=== PATIENT | male | born 1965 | race Hispanic/Latino ===

== ENCOUNTER 2018-04-03 18:26 | Inpatient (IN) | payer OTHER ==
[2018-04-03] MEDS ORDERED: ASPIRIN PO ONE (18:53)
[2018-04-03] MEDS ORDERED: NITROSTAT SL PRN (19:33)
[2018-04-03 19:38] LABS: Basophils # (Auto) 0.1 K/mm3 (0.0-0.1); Basophils % (Auto) 0.7 % (0.0-1.8); Eosinophils # (Auto) 0.6 K/mm3 (0.0-0.4); Eosinophils % (Auto) 4.8 % (0.0-4.3); Lymphocytes # (Auto) 3.9 K/mm3 (1.2-5.4); Lymphocytes % (Auto) 31.9 % (13.4-35.0); Mean Corpuscular HGB Conc 34 % (32-34); Mean Corpuscular Hemoglobin 30 pg (28-32); Mean Corpuscular Volume 88 fl (84-94); Monocytes # (Auto) 0.8 K/mm3 (0.0-0.8); Monocytes % (Auto) 6.4 % (0.0-7.3); Platelet Count 236 K/mm3 (140-440); Red Blood Count 5.33 M/mm3 (3.65-5.03); Red Cell Distribution Width 13.9 % (13.2-15.2)
[2018-04-03 19:52] LABS: BUN/Creatinine Ratio 20; Blood Urea Nitrogen 14 mg/dL (9-20); Calcium 9.2 mg/dL (8.4-10.2); Hemolysis Index 15
[2018-04-03] MEDS ORDERED: MORPHINE IV ONE (22:17)
[2018-04-03] MEDS ORDERED: ZOFRAN IV ONE (22:18)
--- NOTE | 2018-04-03 22:27 | Emergency Department Report ---
ED Chest Pain HPI - General Chief Complaint: Chest Pain Stated Complaint: SOB CHEST PAIN Time Seen by Provider: 04/03/18 19:25 Source: patient Mode of arrival: Ambulatory Limitations: No Limitations - History of Present Illness Initial Comments: History presents to emergency department with substernal chest pain that started 2 hours prior to his arrival. The patient complained of being nauseated. Patient recently moved from [facility] and had a [place] 4 weeks ago with stent placement. Patient denies radiation of his chest pain and describes it as pressure. -: Sudden Onset: during rest Pain Location: substernal Pain Radiation: none Severity: moderate Severity scale (0 -10): 6 Quality: tightness, pressure Consistency: constant Improves With: nothing Worsens With: nothing re: nausea Treatments Prior to Arrival: none - Related Data Allergies Allergy/AdvReac Type Severity Reaction Status Date / Time No Known Allergies Allergy Unverified 04/03/18 18:53 Heart Score - HEART Score History: Moderately suspicious EKG: Non-specific Age: 45-65 Risk factors: 1-2 risk factors Troponin: 1-3x normal limit HEART Score: 5 ED Review of Systems ROS: Stated complaint: SOB CHEST PAIN Other details as noted in HPI Constitutional: denies: chills, fever Eyes: denies: eye pain, eye discharge, vision change ENT: denies: ear pain, throat pain Respiratory: denies: cough, shortness of breath, wheezing Cardiovascular: chest pain. denies: palpitations Endocrine: no symptoms reported Gastrointestinal: denies: abdominal pain, nausea, diarrhea Genitourinary: denies: urgency, dysuria Musculoskeletal: denies: back pain, joint swelling, arthralgia Skin: denies: rash, lesions Neurological: denies: headache, weakness, paresthesias Psychiatric: denies: anxiety, depression Hematological/Lymphatic: denies: easy bleeding, easy bruising ED Past Medical Hx - Past Medical History Previous Medical History?: Yes Hx CVA: Yes (TIA) Hx Heart Attack/AMI: Yes - Surgical History Past Surgical History?: Yes Additional Surgical History: cardiac pacemaker/defibrilator - Social History Smoking Status: Current Every Day Smoker Substance Use Type: None ED Physical Exam - General Limitations: No Limitations General appearance: alert, in no apparent distress - Head Head exam: Present: atraumatic, normocephalic - Eye Eye exam: Present: normal appearance - ENT ENT exam: Present: mucous membranes moist - Neck Neck exam: Present: normal inspection - Respiratory Respiratory exam: Present: normal lung sounds bilaterally. Absent: respiratory distress, wheezes, rales - Cardiovascular Cardiovascular Exam: Present: regular rate, normal rhythm. Absent: systolic murmur, diastolic murmur, rubs, gallop - GI/Abdominal GI/Abdominal exam: Present: soft, normal bowel sounds. Absent: distended, tenderness - Rectal Rectal exam: Present: deferred - Extremities Exam Extremities exam: Present: normal inspection - Back Exam Back exam: Present: normal inspection - Neurological Exam Neurological exam: Present: alert, oriented X3, CN II-XII intact. Absent: motor sensory deficit - Psychiatric Psychiatric exam: Present: normal affect, normal mood - Skin Skin exam: Present: warm, dry, intact, normal color. Absent: rash ED Course Vital Signs 04/03/18 18:49 Temperature 98.6 F Pulse Rate 83 Respiratory 20 Rate Blood Pressure 176/91 O2 Sat by Pulse 99 Oximetry VANDANA score - Vandana Score Aspirin use within the Past 7 Days: (1) Yes 2 or more Angina events in past 24 hrs: (1) Yes Known CAD with more than 50% Stenosis: (1) Yes Elevated Cardiac Markers: (0) No ST Deviation Greater than 0.5mm: (0) No ED Medical Decision Making - Lab Data Result diagrams: 04/03/18 19:01 04/03/18 19:01 - EKG Data EKG shows normal: sinus rhythm (paced rhythm) - EKG Data When compared to previous EKG there are: previous EKG unavailable - Medical Decision Making Discussed the patient with and EKG sent Patient should be admitted for CP work up Patient had no relief of chest pain with sublingual nitroglycerin 3 Critical care attestation.: If time is entered above; I have spent that time in minutes in the direct care of this critically ill patient, excluding procedure time. ED Disposition Clinical Impression: Chest pain Disposition: OP ADMIT IP TO THIS HOSP Is pt being admited?: Yes Does the pt Need Aspirin: Yes Condition: Fair Instructions: Chest Pain (ED) Referrals: PRIMARY CARE, [Primary Care Provider] - 3-5 Days Time of Disposition: 22:37
[2018-04-03] MEDS ORDERED: ZOFRAN IV PRN (23:17)
[2018-04-03] MEDS ORDERED: SODIUM CHLORIDE FLUSH SYRINGE 10 ML IV PRN (23:17)
[2018-04-03] MEDS ORDERED: TYLENOL PO PRN (23:17)
--- NOTE | 2018-04-03 23:17 | History and Physical Report ---
History of Present Illness Date of examination: 04/03/18 History of present illness: 52 year old man with history of CAD, TIA, CHF comes to the ER for evaluation of chest pain that started yesterday. Chest pain is in the epigastric area, pressure, constant, intensity 5/10, radiating to the left neck and arm , he cannot identify exacerbating or relieving factor. Admits to shortness of breath , denies no nausea vomiting, diaphoresis, palpitations. He had a stress test 4 months ago Review of systems Constitutional: no weight loss, chills Ears, eyes, nose, mouth and throat: no nasal congestion, no nasal discharge, no sinus pressure, no vision change, no red eye. Neck: No neck pain or rigidity. Cardiovascular: no palpitations Respiratory: no cough Gastrointestinal: no abdominal pain, hematochezia Genitourinary : no frequency , no hematuria Musculoskeletal: no joint swelling or muscle ache Integumentary: no rash, no pruritis Neurological: no parathesias, no numbness, no focal weakness Endocrine: no cold or heat intolerance, no polyuria or polydipsia Hematologic/Lymphatic: no easy bruising, no easy bleeding, no gland swelling Allergic/Immunologic: no urticaria, no angioedema. PAST MEDICAL HISTORY: CAD CHF, TIA PAST SURGICAL HISTORY: Pacemaker, Defibrillator SOCIAL HISTORY: No alcohol, no drugs, smoke 1 pack a day FAMILY HISTORY: Hypertension Medications and Allergies Allergies Allergy/AdvReac Type Severity Reaction Status Date / Time No Known Allergies Allergy Unverified 04/03/18 18:53 Home Medications Medication Instructions Recorded Confirmed Last Taken Type Aspirin EC [Ecotrin] 325 mg PO QDAY 04/03/18 04/03/18 Unknown History Atorvastatin [Lipitor Tab] 40 mg PO QHS 04/03/18 04/03/18 Unknown History Carvedilol [Coreg] 12.5 mg PO BID 04/03/18 04/03/18 Unknown History Furosemide [Lasix] 20 mg PO QDAY 04/03/18 04/03/18 Unknown History ISOSORBIDE MONOnitrate [Imdur ER] 60 mg PO QDAY 04/03/18 04/03/18 Unknown History Insulin Aspart [NovoLOG Flexpen] 20 units SQ AC 04/03/18 04/03/18 Unknown History Insulin Detemir [Levemir Flextouch] 35 unit SQ BID 04/03/18 04/03/18 Unknown History Lisinopril [Zestril TAB] 10 mg PO QDAY 04/03/18 04/03/18 Unknown History Rivaroxaban [Xarelto] 20 mg PO QDAY 04/03/18 04/03/18 Unknown History traZODone [Desyrel] 100 mg PO QHS 04/03/18 04/03/18 Unknown History Active Meds: Active Medications Nitroglycerin (Nitrostat) 0.4 mg SL .Q5MIN PRN PRN Reason: Chest Pain Last Admin: 04/03/18 21:11 Dose: 0.4 mg Exam - Physical Exam Narrative exam: Gen. appearance: Patient lying in bed, no apparent distress HEENT: Normocephalic, atraumatic, pupils equally round and reactive to light, eyes are , extraocular movement intact, and no sclericterus,. No JVD or thyromegaly or nodule,neck supple, no carotid bruit ,mucous membranes dry, no exudate or erythema Heart: S1, S2, regular rate and rhythm Lungs: Clear bilaterally, breathing comfortable Abdomen: Positive bowel sounds, nontender, nondistended, no organomegaly Extremity:no edema cyanosis, clubbing Skin: red blotches on posterior arm with entry erick, no rash, dry Neuro: Oriented 3, cranial nerves II-12 intact, speech is fluent, motor and sensory intact - Constitutional Vitals: Temp Pulse Resp BP Pulse Ox 98.6 F 70 22 124/70 98 04/03/18 18:49 04/03/18 22:50 04/03/18 22:50 04/03/18 22:50 04/03/18 21:53 Results - Labs CBC & Chem 7: 04/03/18 19:01 04/03/18 19:01 Labs: Abnormal lab results 04/03/18 04/03/18 Range/Units 19:01 19:01 WBC 12.1 H (4.5-11.0) K/mm3 RBC 5.33 H (3.65-5.03) M/mm3 Hgb 16.0 H (11.8-15.2) gm/dl Hct 47.0 H (35.5-45.6) % Eos % (Auto) 4.8 H (0.0-4.3) % Eos # 0.6 H (0.0-0.4) K/mm3 Sodium 134 L (137-145) mmol/L Creatinine 0.7 L (0.8-1.5) mg/dL Glucose 298 H (75-100) mg/dL - Imaging and Cardiology EKG: image reviewed Assessment and Plan Assessment Unstable [place] CAD CHF, stable Plan Admit to medicine Check cardiac enzymes, consult cardiology Continue outpatient meducations DVT prophalaxis
[2018-04-04] MEDS ORDERED: MORPHINE ONE (00:18)
[2018-04-04] MEDS ORDERED: MORPHINE IV ONE (00:18)
--- NOTE | 2018-04-04 00:24 | XRay Report ---
FINAL REPORT PROCEDURE: Portable AP chest x-ray TECHNIQUE: Chest radiograph portable AP view. CPT 22229 HISTORY: Chest pain COMPARISON: No prior studies are available for comparison. FINDINGS: Dual-chamber pacemaker implanted in the left side of the chest. The heart is magnified due to projection although appears to be normal size. Pulmonary vasculature is not distended. No evidence of pulmonary edema or pleural effusion. No infiltrates or masses are seen. No acute bony abnormalities are identified. IMPRESSION: Dual-chamber pacemaker in place. No acute abnormalities are identified..
[2018-04-04 02:24] LABS: Basophils # (Auto) 0.1 K/mm3 (0.0-0.1); Basophils % (Auto) 0.7 % (0.0-1.8); Eosinophils # (Auto) 0.4 K/mm3 (0.0-0.4); Eosinophils % (Auto) 4.1 % (0.0-4.3); Hematocrit 43.8 % (35.5-45.6); Hemoglobin 14.9 gm/dl (11.8-15.2); Lymphocytes % (Auto) 39.4 % (13.4-35.0); Mean Corpuscular HGB Conc 34 % (32-34); Mean Corpuscular Hemoglobin 30 pg (28-32); Mean Corpuscular Volume 88 fl (84-94); Monocytes # (Auto) 0.7 K/mm3 (0.0-0.8); Monocytes % (Auto) 7.4 % (0.0-7.3); Platelet Count 200 K/mm3 (140-440); Red Blood Count 4.99 M/mm3 (3.65-5.03); Red Cell Distribution Width 13.6 % (13.2-15.2)
[2018-04-04 02:44] LABS: BUN/Creatinine Ratio 19; Blood Urea Nitrogen 13 mg/dL (9-20); Calcium 8.8 mg/dL (8.4-10.2); Hemolysis Index 0
[2018-04-04 08:20] LABS: Creatine Kinase MB 1.4 ng/mL (0.0-4.0)
[2018-04-04] MEDS: MORPHINE IV PRN ×2 (09:43→14:58)
[2018-04-04] MEDS: SODIUM CHLORIDE FLUSH SYRINGE 10 ML IV SCH ×2 (09:43→22:00)
[2018-04-04] MEDS ORDERED: LOVENOX SUB-Q SCH ×2 (10:00)
--- NOTE | 2018-04-04 11:21 | Progress Note ---
Assessment and Plan Assessment and plan: Chest pain. Patient reportedly had a stress test done approximate 4 months ago. I discussed case with cardiology who will see the patient in consultation. Patient may have repeat stress test versus cardiac catheterization. Coronary artery disease. As above. History of TIA. History Interval history: No new issues overnight. Hospitalist Physical - Constitutional Vitals: Temp Pulse Resp BP Pulse Ox 97.5 F L 71 20 148/71 98 04/04/18 07:34 04/04/18 07:34 04/04/18 07:34 04/04/18 07:34 04/04/18 07:34 General appearance: Present: no acute distress, well-nourished - EENT Eyes: Present: PERRL, EOM intact ENT: hearing intact, clear oral mucosa, dentition normal - Neck Neck: Present: supple, normal ROM - Respiratory Respiratory effort: normal Respiratory: bilateral: CTA - Cardiovascular Rhythm: regular Heart Sounds: Present: S1 & S2. Absent: gallop, rub - Extremities Extremities: no ischemia, No edema, Full ROM - Abdominal General gastrointestinal: soft, non-tender, non-distended, normal bowel sounds - Integumentary Integumentary: Present: clear, warm, dry - Neurologic Neurologic: CNII-XII intact, moves all extremities Results - Labs CBC & Chem 7: 04/04/18 02:06 04/04/18 02:06 Labs: Laboratory Last Values WBC 10.2 K/mm3 (4.5-11.0) 04/04/18 02:06 RBC 4.99 M/mm3 (3.65-5.03) 04/04/18 02:06 Hgb 14.9 gm/dl (11.8-15.2) 04/04/18 02:06 Hct 43.8 % (35.5-45.6) 04/04/18 02:06 MCV 88 fl (84-94) 04/04/18 02:06 MCH 30 pg (28-32) 04/04/18 02:06 MCHC 34 % (32-34) 04/04/18 02:06 RDW 13.6 % (13.2-15.2) 04/04/18 02:06 Plt Count 200 K/mm3 (140-440) 04/04/18 02:06 Lymph % (Auto) 39.4 % (13.4-35.0) H 04/04/18 02:06 [place] % (Auto) 7.4 % (0.0-7.3) H 04/04/18 02:06 Eos % (Auto) 4.1 % (0.0-4.3) 04/04/18 02:06 Baso % (Auto) 0.7 % (0.0-1.8) 04/04/18 02:06 Lymph # 4.0 K/mm3 (1.2-5.4) 04/04/18 02:06 [place] # 0.7 K/mm3 (0.0-0.8) 04/04/18 02:06 Eos # 0.4 K/mm3 (0.0-0.4) 04/04/18 02:06 Baso # 0.1 K/mm3 (0.0-0.1) 04/04/18 02:06 Seg Neutrophils % 48.4 % (40.0-70.0) 04/04/18 02:06 Seg Neutrophils # 4.9 K/mm3 (1.8-7.7) 04/04/18 02:06 Sodium 140 mmol/L (137-145) 04/04/18 02:06 Potassium 4.0 mmol/L (3.6-5.0) 04/04/18 02:06 Chloride 101.7 mmol/L (98-107) 04/04/18 02:06 Carbon Dioxide 27 mmol/L (22-30) 04/04/18 02:06 Anion Gap 15 mmol/L 04/04/18 02:06 BUN 13 mg/dL (9-20) 04/04/18 02:06 Creatinine 0.7 mg/dL (0.8-1.5) L 04/04/18 02:06 Estimated GFR > 60 ml/min 04/04/18 02:06 BUN/Creatinine Ratio 19 % 04/04/18 02:06 Glucose 231 mg/dL (75-100) H 04/04/18 02:06 Calcium 8.8 mg/dL (8.4-10.2) 04/04/18 02:06 Total Creatine Kinase 155 units/L (55-170) 04/04/18 06:58 CK-MB (CK-2) 1.4 ng/mL (0.0-4.0) 04/04/18 06:58 CK-MB (CK-2) Rel Index 0.9 (0-4) 04/04/18 06:58 Troponin T < 0.010 ng/mL (0.00-0.029) 04/04/18 06:58 NT-Pro-B Natriuret Pep 79.35 pg/mL (0-900) 04/03/18 19:39
--- NOTE | 2018-04-04 14:36 | Consultation ---
History of Present Illness Consult date: 04/04/18 Requesting physician: MARIE ALTAMIRANO Consult reason: chest pain History of present illness: The pt is a 52 YO male with a past medical history significant for reported CAD s/p AMI x 4 (no stents per pt report), AICD/PPM in situ, pulmonary embolism, anticoagulated with Xarelto, TIAs, HTN, DM, COPD, tobacco use, ANISHA, former ETOH use. He is previously unknown to our practice. He presented with complaints of chest pain since yesterday. He describes his chest pain as a constant, nonexertional, midsternal pressure which radiates into his neck and upper back. The pain is associated with SOB and palpitations. He denies any n/v, diaphoresis , dizziness or syncope. He reports that his last AMI was 12 weeks ago in [place], [place]. He underwent LHC at that time but was told that his "blockages" were not greater than 80% and thus he did not need PCI. He was found to have "bradycardia and a weak heart" at that time and thus AICD/PPM was implanted. 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 Pt reports that he recently ran out of some of his prescription cardiac medications but does not recall which ones. Past History Past Medical History: COPD, diabetes, hypertension, pulmonary embolism, other ( ANISHA; TIAs) Social history: , lives with family, smoking, alcohol abuse (former). denies: prescription drug abuse Medications and Allergies Allergies Allergy/AdvReac Type Severity Reaction Status Date / Time No Known Allergies Allergy Unverified 04/03/18 18:53 Home Medications Medication Instructions Recorded Confirmed Last Taken Type Aspirin EC [Ecotrin] 325 mg PO QDAY 04/03/18 04/03/18 Unknown History Atorvastatin [Lipitor Tab] 40 mg PO QHS 04/03/18 04/03/18 Unknown History Carvedilol [Coreg] 12.5 mg PO BID 04/03/18 04/03/18 Unknown History Furosemide [Lasix] 20 mg PO QDAY 04/03/18 04/03/18 Unknown History ISOSORBIDE MONOnitrate [Imdur ER] 60 mg PO QDAY 04/03/18 04/03/18 Unknown History Insulin Aspart [NovoLOG Flexpen] 20 units SQ AC 04/03/18 04/03/18 Unknown History Insulin Detemir [Levemir Flextouch] 35 unit SQ BID 04/03/18 04/03/18 Unknown History Lisinopril [Zestril TAB] 10 mg PO QDAY 04/03/18 04/03/18 Unknown History Rivaroxaban [Xarelto] 20 mg PO QDAY 04/03/18 04/03/18 Unknown History traZODone [Desyrel] 100 mg PO QHS 04/03/18 04/03/18 Unknown History Active Meds: Active Medications Acetaminophen (Tylenol) 650 mg PO Q4H PRN PRN Reason: Pain MILD(1-3)/Fever >100.5/GARCIA Enoxaparin Sodium (Lovenox) 40 mg SUB-Q QDAY@1000 [facility] Last Admin: 04/04/18 09:42 Dose: 40 mg Morphine Sulfate (Morphine) 2 mg IV Q4H PRN PRN Reason: Pain, Moderate (4-6) Last Admin: 04/04/18 09:43 Dose: 2 mg Nitroglycerin (Nitrostat) 0.4 mg SL .Q5MIN PRN PRN Reason: Chest Pain Last Admin: 04/03/18 21:11 Dose: 0.4 mg Ondansetron HCl (Zofran) 4 mg IV Q4H PRN PRN Reason: Nausea And Vomiting Sodium Chloride (Sodium Chloride Flush Syringe 10 Ml) 10 ml IV BID [facility] Last Admin: 04/04/18 09:43 Dose: 10 ml Sodium Chloride (Sodium Chloride Flush Syringe 10 Ml) 10 ml IV PRN PRN PRN Reason: LINE FLUSH Review of Systems Constitutional: no weight loss, no weight gain, no fever, no chills, no sweats Ears, nose, mouth and throat: no ear pain, no nose pain, no sinus pressure, no sinus pain Cardiovascular: chest pain, palpitations, shortness of breath, high blood pressure, no orthopnea, no rapid/irregular heart beat, no edema, no syncope, no lightheadedness, no paroxysmal nocturnal dyspnea, no leg edema Respiratory: shortness of breath, no cough, no congestion, no wheezing, no pain on inspiration Gastrointestinal: no abdominal pain, no nausea, no vomiting, no diarrhea, no constipation, no change in bowel habits Genitourinary Male: no dysuria, no hematuria, no flank pain, no discharge, no urinary frequency, no urinary hesitancy Musculoskeletal: no neck stiffness, no neck pain, no shooting arm pain, no arm numbness/tingling, no low back pain, no shooting leg pain, no leg numbness/ tingling, no redness of joints Integumentary: no rash, no pruritis, no redness, no sores, no wounds Neurological: no head injury, no paralysis, no weakness, no parathesias, no numbness, no tingling, no seizures, no syncope Psychiatric: no anxiety Endocrine: no cold intolerance, no heat intolerance Hematologic/Lymphatic: no easy bruising, no easy bleeding, no lymphadenopathy Allergic/Immunologic: no urticaria, no wheezing, no persistent infections Physical Examination Vital Signs Temp Pulse Resp BP Pulse Ox 98.6 F 83 20 176/91 99 04/03/18 18:49 04/03/18 18:49 04/03/18 18:49 04/03/18 18:49 04/03/18 18:49 General appearance: no acute distress HEENT: Positive: PERRL, Normocephaly, Mucus Membranes Moist Neck: Positive: neck supple, trachea midline Cardiac: Positive: Reg Rate and Rhythm, S1/S2 Lungs: Positive: clear to auscultation Neuro: Positive: Grossly Intact, Cranial Nerve 2-12 Intact Abdomen: Positive: Soft. Negative: Tender Skin: Positive: Clear. Negative: Rash, Wound Musculoskeletal: No Fluid Collection, No Pain, Normal Range of Motion Extremities: Absent: edema Results 04/04/18 02:06 04/04/18 02:06 Cardiac Enzymes 04/04/18 Range/Units 06:58 CK-MB (CK-2) 1.4 (0.0-4.0) ng/mL CBC 04/03/18 04/04/18 Range/Units 19:01 02:06 WBC 12.1 H 10.2 (4.5-11.0) K/mm3 RBC 5.33 H 4.99 (3.65-5.03) M/mm3 Hgb 16.0 H 14.9 (11.8-15.2) gm/dl Hct 47.0 H 43.8 (35.5-45.6) % Plt Count 236 200 (140-440) K/mm3 Lymph # 3.9 4.0 (1.2-5.4) K/mm3 [place] # 0.8 0.7 (0.0-0.8) K/mm3 Eos # 0.6 H 0.4 (0.0-0.4) K/mm3 Baso # 0.1 0.1 (0.0-0.1) K/mm3 Comprehensive Metabolic Panel 04/03/18 04/04/18 Range/Units 19:01 02:06 Sodium 134 L 140 (137-145) mmol/L Potassium 3.8 4.0 (3.6-5.0) mmol/L Chloride 100.2 101.7 (98-107) mmol/L Carbon Dioxide 23 27 (22-30) mmol/L BUN 14 13 (9-20) mg/dL Creatinine 0.7 L 0.7 L (0.8-1.5) mg/dL Glucose 298 H 231 H (75-100) mg/dL Calcium 9.2 8.8 (8.4-10.2) mg/dL - Imaging and Cardiology Echo: pending EKG: report reviewed, image reviewed EKG interpretations - Telemetry EKG Rhythm: Paced AV and intraventricular conduction: left bundle branch block Pacemaker: atrial pacing w/capture Assessment and Plan Assessment: Chest pain - ECG with NAF; Yu negative for AMI CAD s/p AMI x 4 (no stents per pt report) - most recent AMI with LHC was 12 weeks ago per pt report ? CMP AICD/PPM in situ H/o pulmonary embolism, anticoagulated with Xarelto at home H/o TIAs HTN DM COPD Tobacco use - cessation encouraged ANISHA Former ETOH use Plan: Resume home medication regimen per primary. Obtain DDimer and plan to proceed with lexiscan MPI stress test in AM pending DDimer is WNL. NPO after MN. Obtain echo. Attempt to obtain medical records from [facility]. The patient has been seen in conjunction with Dr. Rae who agrees with the assessment and plan of care.
[2018-04-04] MEDS: LANTUS SUB-Q SCH (22:00)
[2018-04-04] MEDS ORDERED: INSULIN DETEMIR 35 UNIT SQ SCH (22:00)
[2018-04-04] MEDS: DESYREL PO SCH (22:16)
[2018-04-04] MEDS: COREG PO SCH (22:16)
[2018-04-05] MEDS: HumaLOG SUB-Q SCH ×3 (07:30→17:49)
[2018-04-05] MEDS ORDERED: INSULIN ASPART 20 UNIT SQ SCH (07:30)
[2018-04-05 07:33] LABS: Basophils # (Auto) 0.1 K/mm3 (0.0-0.1); Basophils % (Auto) 0.8 % (0.0-1.8); Eosinophils # (Auto) 0.3 K/mm3 (0.0-0.4); Eosinophils % (Auto) 4.3 % (0.0-4.3); Hematocrit 44.7 % (35.5-45.6); Hemoglobin 15.2 gm/dl (11.8-15.2); Lymphocytes # (Auto) 2.7 K/mm3 (1.2-5.4); Lymphocytes % (Auto) 34.5 % (13.4-35.0); Mean Corpuscular HGB Conc 34 % (32-34); Mean Corpuscular Hemoglobin 30 pg (28-32); Mean Corpuscular Volume 88 fl (84-94); Monocytes # (Auto) 0.5 K/mm3 (0.0-0.8); Monocytes % (Auto) 6.3 % (0.0-7.3); Platelet Count 193 K/mm3 (140-440); Red Blood Count 5.07 M/mm3 (3.65-5.03); Red Cell Distribution Width 13.8 % (13.2-15.2)
[2018-04-05 07:38] LABS: BUN/Creatinine Ratio 14; Blood Urea Nitrogen 10 mg/dL (9-20); Calcium 8.9 mg/dL (8.4-10.2); Hemolysis Index 27
--- NOTE | 2018-04-05 08:47 | Event Note ---
Date: 04/05/18 DDimer minimally elevated, likely nonspecific. Will proceed with lexiscan MPI stress test this AM. Jovani NAVARRO NP / DR. GREENWOOD
[2018-04-05] MEDS ORDERED: LEXISCAN IV ONE (09:42)
--- NOTE | 2018-04-05 09:54 | Progress Note ---
Assessment and Plan Assessment and plan: Chest pain. ECG with no acute findings. Cardiac isoenzymes are negative for acute NH. Patient reports history of coronary artery disease status post acute NH 4 per patient. Patient undergo Lexiscan today. Follow-up echocardiogram. Cardiology following. AICD/PPM in situ H/o pulmonary embolism, anticoagulated with Xarelto at home. H/o TIAs Hypertension. Continue antihypertensive medications. DM type II. Continue Accu-Cheks and sliding scale insulin. Tight glycemic control. COPD. Compensated. Tobacco use - cessation encouraged ANISHA. CPAP at night. Former ETOH use History Interval history: No new issues overnight. Hospitalist Physical - Constitutional Vitals: Temp Pulse Resp BP Pulse Ox 98.3 F 72 20 123/78 94 04/05/18 04:15 04/05/18 04:15 04/05/18 09:29 04/05/18 04:15 04/05/18 09:29 General appearance: Present: no acute distress - EENT Eyes: Present: PERRL, EOM intact ENT: hearing intact, clear oral mucosa, dentition normal - Neck Neck: Present: supple, normal ROM - Respiratory Respiratory effort: normal Respiratory: bilateral: CTA - Cardiovascular Rhythm: regular Heart Sounds: Present: S1 & S2. Absent: gallop, rub - Extremities Extremities: no ischemia, No edema, Full ROM - Abdominal General gastrointestinal: soft, non-tender, non-distended, normal bowel sounds - Integumentary Integumentary: Present: clear, warm, dry - Neurologic Neurologic: CNII-XII intact, moves all extremities Results - Labs CBC & Chem 7: 04/05/18 06:53 04/05/18 06:53 Labs: Laboratory Last Values WBC 7.7 K/mm3 (4.5-11.0) 04/05/18 06:53 RBC 5.07 M/mm3 (3.65-5.03) H 04/05/18 06:53 Hgb 15.2 gm/dl (11.8-15.2) 04/05/18 06:53 Hct 44.7 % (35.5-45.6) 04/05/18 06:53 MCV 88 fl (84-94) 04/05/18 06:53 MCH 30 pg (28-32) 04/05/18 06:53 MCHC 34 % (32-34) 04/05/18 06:53 RDW 13.8 % (13.2-15.2) 04/05/18 06:53 Plt Count 193 K/mm3 (140-440) 04/05/18 06:53 Lymph % (Auto) 34.5 % (13.4-35.0) 04/05/18 06:53 [place] % (Auto) 6.3 % (0.0-7.3) 04/05/18 06:53 Eos % (Auto) 4.3 % (0.0-4.3) 04/05/18 06:53 Baso % (Auto) 0.8 % (0.0-1.8) 04/05/18 06:53 Lymph # 2.7 K/mm3 (1.2-5.4) 04/05/18 06:53 [place] # 0.5 K/mm3 (0.0-0.8) 04/05/18 06:53 Eos # 0.3 K/mm3 (0.0-0.4) 04/05/18 06:53 Baso # 0.1 K/mm3 (0.0-0.1) 04/05/18 06:53 Seg Neutrophils % 54.1 % (40.0-70.0) 04/05/18 06:53 Seg Neutrophils # 4.2 K/mm3 (1.8-7.7) 04/05/18 06:53 D-Dimer 293.88 ng/mlDDU (0-234) H 04/04/18 17:17 Sodium 137 mmol/L (137-145) 04/05/18 06:53 Potassium 4.1 mmol/L (3.6-5.0) 04/05/18 06:53 Chloride 100.0 mmol/L (98-107) 04/05/18 06:53 Carbon Dioxide 28 mmol/L (22-30) 04/05/18 06:53 Anion Gap 13 mmol/L 04/05/18 06:53 BUN 10 mg/dL (9-20) 04/05/18 06:53 Creatinine 0.7 mg/dL (0.8-1.5) L 04/05/18 06:53 Estimated GFR > 60 ml/min 04/05/18 06:53 BUN/Creatinine Ratio 14 % 04/05/18 06:53 Glucose 187 mg/dL (75-100) H 04/05/18 06:53 POC Glucose 106 (70-105) H 04/04/18 23:42 Calcium 8.9 mg/dL (8.4-10.2) 04/05/18 06:53 Total Creatine Kinase 155 units/L (55-170) 04/04/18 06:58 CK-MB (CK-2) 1.4 ng/mL (0.0-4.0) 04/04/18 06:58 CK-MB (CK-2) Rel Index 0.9 (0-4) 04/04/18 06:58 Troponin T < 0.010 ng/mL (0.00-0.029) 04/04/18 06:58 NT-Pro-B Natriuret Pep 79.35 pg/mL (0-900) 04/03/18 19:39
[2018-04-05] MEDS ORDERED: ECOTRIN PO SCH (10:00)
[2018-04-05] MEDS: MORPHINE IV PRN ×2 (12:02→22:13)
[2018-04-05] MEDS: SODIUM CHLORIDE FLUSH SYRINGE 10 ML IV SCH ×2 (12:05→22:07)
[2018-04-05] MEDS: ZESTRIL PO SCH (12:14)
[2018-04-05] MEDS: IMDUR PO SCH (12:15)
[2018-04-05] MEDS: XARELTO PO SCH (12:16)
[2018-04-05] MEDS: COREG PO SCH ×2 (12:16→22:06)
[2018-04-05] MEDS: LASIX PO SCH (12:16)
[2018-04-05] MEDS: LANTUS SUB-Q SCH ×2 (12:17→22:06)
--- NOTE | 2018-04-05 12:47 | Progress Note ---
Assessment and Plan Assessment: Chest pain - currently resolved; ECG with NAF; Yu negative for AMI CAD s/p AMI x 4 (no stents per pt report) - most recent AMI with LHC was 12 weeks ago per pt report CMP AICD/PPM in situ H/o pulmonary embolism, anticoagulated with Xarelto at home H/o TIAs HTN DM COPD Tobacco use - cessation encouraged ANISHA Former ETOH use Plan: S/p lexiscan MPI stress test this AM which was negative for active ischemia, showed fixed apical and inferior wall perfusion defects, EF 35%. Decrease ASA to 81mg daily. Cont all other present cardiac management. Await echo. Pending echo reveals no gross abnormalities, pt may discharge home from cardiology standpoint. Recommend follow up in our office with Jacqueline Acosta NP, within 1-2 weeks of hospital discharge ([phone]). The patient has been seen in conjunction with Dr. Rae who agrees with the assessment and plan of care. Subjective Date of service: 04/05/18 Principal diagnosis: cp Interval history: pt for stress test today. no current complaints. Objective Last Vital Signs Temp 98.3 F 04/05/18 04:15 Pulse 78 04/05/18 12:16 Resp 20 04/05/18 12:02 BP 117/75 04/05/18 12:16 Pulse Ox 99 04/05/18 10:57 - Physical Examination HEENT: Positive: PERRL, Normocephaly, Mucus Membranes Moist Neck: Positive: neck supple, trachea midline Cardiac: Positive: Reg Rate and Rhythm, S1/S2 Lungs: Positive: clear to auscultation Neuro: Positive: Grossly Intact, Cranial Nerve 2-12 Intact Abdomen: Positive: Soft. Negative: Tender Skin: Positive: Clear. Negative: Rash, Wound Musculoskeletal: No Fluid Collection, No Pain, Normal Range of Motion Extremities: Absent: edema - Labs and Meds CBC 04/05/18 Range/Units 06:53 WBC 7.7 (4.5-11.0) K/mm3 RBC 5.07 H (3.65-5.03) M/mm3 Hgb 15.2 (11.8-15.2) gm/dl Hct 44.7 (35.5-45.6) % Plt Count 193 (140-440) K/mm3 Lymph # 2.7 (1.2-5.4) K/mm3 [place] # 0.5 (0.0-0.8) K/mm3 Eos # 0.3 (0.0-0.4) K/mm3 Baso # 0.1 (0.0-0.1) K/mm3 Comprehensive Metabolic Panel 04/05/18 Range/Units 06:53 Sodium 137 (137-145) mmol/L Potassium 4.1 (3.6-5.0) mmol/L Chloride 100.0 (98-107) mmol/L Carbon Dioxide 28 (22-30) mmol/L BUN 10 (9-20) mg/dL Creatinine 0.7 L (0.8-1.5) mg/dL Glucose 187 H (75-100) mg/dL Calcium 8.9 (8.4-10.2) mg/dL - Imaging and Cardiology EKG: report reviewed, image reviewed Echo: pending AV and intraventricular conduction: left bundle branch block Pacemaker: atrial pacing w/capture
--- NOTE | 2018-04-05 20:43 | Treadmill Report ---
MYOCARDIAL PERFUSION IMAGING STUDY Resting images revealed diminished radioisotope activity in the inferior wall and also at the apex. On post-Lexiscan, the images revealed again no diminished radioisotope activity in the inferior wall as well as at the apex. On gated scan, inferior wall was noted to be hypokinetic with ejection fraction of 35%. There is no evidence of transient ischemic dilatation. IMPRESSION: 1. This patient has a fixed small defect in the apex and as well as inferior wall without any reversibility. 2. He has cardiomyopathy, either ischemic or nonischemic. 3. From looking at the scan, he does not need any invasive testing. JOB# [id number] ROSA/KAYLA
[2018-04-05] MEDS: DESYREL PO SCH (22:05)
[2018-04-06 05:15] LABS: Basophils # (Auto) 0.1 K/mm3 (0.0-0.1); Basophils % (Auto) 0.6 % (0.0-1.8); Eosinophils # (Auto) 0.3 K/mm3 (0.0-0.4); Hematocrit 42.7 % (35.5-45.6); Hemoglobin 14.5 gm/dl (11.8-15.2); Lymphocytes % (Auto) 34.6 % (13.4-35.0); Mean Corpuscular HGB Conc 34 % (32-34); Mean Corpuscular Hemoglobin 30 pg (28-32); Mean Corpuscular Volume 87 fl (84-94); Monocytes # (Auto) 0.6 K/mm3 (0.0-0.8); Monocytes % (Auto) 7.2 % (0.0-7.3); Platelet Count 204 K/mm3 (140-440); Red Cell Distribution Width 13.9 % (13.2-15.2)
[2018-04-06] MEDS: HumaLOG SUB-Q SCH ×3 (08:19→17:48)
--- NOTE | 2018-04-06 08:32 | Discharge Summary ---
Providers - Providers Date of Admission: 04/03/18 23:17 Date of discharge: 04/06/18 Attending physician: CALLY NORMAN 04/03/18 23:17 Consult to Physician [CONS] Routine Comment: Consulting Provider: DEMI NANCE Physician Instructions: Reason For Exam: cp Primary care physician: HEAD WELL PULLER Hospitalization Reason for admission: cp Condition: Fair Hospital course: The pt is a 52 YO male with a past medical history significant for reported CAD s/p AMI x 4 (no stents per pt report), AICD/PPM in situ, pulmonary embolism, anticoagulated with Xarelto, TIAs, HTN, DM, COPD, tobacco use, ANISHA, former ETOH use who presented with complaints of chest pain the day prior to admission. He described his chest pain as a constant, nonexertional, midsternal pressure which radiates into his neck and upper back. The pain was associated with SOB and palpitations. He denied any n/v, diaphoresis, dizziness or syncope. He reports that his last AMI was 12 weeks ago in [place], [place]. He underwent LHC at that time but was told that his "blockages" were not greater than 80% and thus he did not need PCI. He was found to have "bradycardia and a weak heart" at that time and thus AICD/PPM was implanted. 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 The patient underwent chest pain workup with ECG revealing no acute findings and cardiac isoenzymes negative for AMI. Patient was seen by cardiology in consultation who recommended Lexiscan that was negative for active ischemia but did show fixed apical and inferior wall perfusion defects, EF 35%. The patient also underwent echocardiogram that is pending and CT of the chest for elevated d -dimer. If the studies are stable patient will be discharged home and is to follow-up with cardiology as an outpatient. Dedicated discharge time 35 minutes. Disposition: TO HOME OR SELFCARE Time spent for discharge: 35 - Discharge Diagnoses (1) HTN (hypertension) Status: Acute (2) CAD (coronary artery disease) Status: Acute (3) COPD (chronic obstructive pulmonary disease) Status: Acute (4) Tobacco abuse Status: Acute (5) Chest pain Status: Acute Core Measure Documentation - Palliative Care Palliative Care/ Comfort Measures: Not Applicable - Core Measures Any of the following diagnoses?: none Exam - Constitutional Vitals: Temp Pulse Resp BP Pulse Ox 97.5 F L 76 18 102/63 95 04/06/18 05:57 04/06/18 05:57 04/06/18 05:57 04/06/18 05:57 04/06/18 05:57 General appearance: Present: no acute distress, well-nourished - EENT Eyes: Present: PERRL ENT: hearing intact, clear oral mucosa - Neck Neck: Present: supple, normal ROM - Respiratory Respiratory effort: normal Respiratory: bilateral: CTA - Cardiovascular Heart Sounds: Present: S1 & S2. Absent: rub, click - Extremities Extremities: pulses symmetrical, No edema Peripheral Pulses: within normal limits - Abdominal General gastrointestinal: Present: soft, non-tender, non-distended, normal bowel sounds Male genitourinary: Present: normal - Integumentary Integumentary: Present: clear, warm, dry - Musculoskeletal Musculoskeletal: gait normal, strength equal bilaterally - Psychiatric Psychiatric: appropriate mood/affect, intact judgment & insight - Neurologic Neurologic: CNII-XII intact, moves all extremities Plan Activity: advance as tolerated Weight Bearing Status: Weight Bear as Tolerated Diet: low fat, low cholesterol, diabetic Follow up with: PRIMARY CARE,MD [Primary Care Provider] - 3-5 Days Prescriptions: Aspirin [Aspirin BABY CHEW TAB] 81 mg PO QDAY #30 tab.chew Atorvastatin [Lipitor] 40 mg PO QHS #30 tablet Carvedilol [Coreg] 12.5 mg PO BID #60 tablet Furosemide [Lasix TAB] 20 mg PO QDAY #30 tablet Insulin Aspart [NovoLOG Flexpen] 20 units SQ AC #30 insuln.pen Insulin Detemir [Levemir Flextouch] 35 unit SQ BID #30 insuln.pen ISOSORBIDE MONOnitrate [Imdur ER] 60 mg PO QDAY #30 tablet Lisinopril [Zestril TAB] 10 mg PO QDAY #30 tablet Nitroglycerin [Nitrostat] 0.4 mg SL .Q5MIN PRN #30 tablet PRN Reason: Chest Pain Rivaroxaban [Xarelto] 20 mg PO QDAY #30 tablet traZODone [Desyrel] 100 mg PO QHS #30 tablet
[2018-04-06 09:06] LABS: BUN/Creatinine Ratio 16; Blood Urea Nitrogen 11 mg/dL (9-20); Hemolysis Index 5
[2018-04-06] MEDS ORDERED: BABY ASPIRIN PO SCH (10:00)
[2018-04-06] MEDS: XARELTO PO SCH (11:15)
[2018-04-06] MEDS: COREG PO SCH (11:15)
[2018-04-06] MEDS: ZESTRIL PO SCH (11:16)
[2018-04-06] MEDS: LASIX PO SCH (11:16)
[2018-04-06] MEDS: LANTUS SUB-Q SCH (11:17)
[2018-04-06] MEDS: IMDUR PO SCH (11:18)
[2018-04-06] MEDS: SODIUM CHLORIDE FLUSH SYRINGE 10 ML IV SCH (11:39)
[2018-04-06] MEDS: MORPHINE IV PRN (11:40)
[2018-04-06 13:19] VITALS: BP 123/69
--- NOTE | 2018-04-06 13:37 | Cat Scan Report ---
CT CHEST WITH CONTRAST: 04/06/18 12:57 CLINICAL: Elevated d-dimer TECHNIQUE: PE protocol with volumetric acquisition and 1.25 mm scan reconstructions after the uneventful intravenous injection of 100 cc Omnipaque 350. Consent was obtained prior to the administration of contrast. FINDINGS: Good opacification of the pulmonary arteries and no pulmonary artery thrombus identified. Normal heart and aorta. Normal lungs and mediastinum. Normal thyroid, trachea and esophagus. The upper abdomen is unremarkable status post cholecystectomy. The bones and soft tissues are normal. IMPRESSION: Normal study. No pulmonary embolus.
== END 2018-04-06 17:46 | disposition home or self-care (01) | DRG 303 ==
LOC: ED 18:26 → 4A 23:17
PROVIDERS: ADMIT Internal Medicine; ATTEND Hospitalist
DX: I25.110 Atherosclerotic heart disease of native coronary artery with unstable angina pectoris (principal); I50.9 Heart failure, unspecified; I11.0 Hypertensive heart disease with heart failure; E11.9 Type 2 diabetes mellitus without complications; J44.9 Chronic obstructive pulmonary disease, unspecified; G47.33 Obstructive sleep apnea (adult) (pediatric); F17.200 Nicotine dependence, unspecified, uncomplicated; I42.9 Cardiomyopathy, unspecified; Z79.82 Long term (current) use of aspirin; Z79.4 Long term (current) use of insulin; I25.2 Old myocardial infarction; Z95.810 Presence of automatic (implantable) cardiac defibrillator; Z86.711 Personal history of pulmonary embolism; Z86.73 Personal history of transient ischemic attack (TIA), and cerebral infarction without residual deficits; Z79.899 Other long term (current) drug therapy
CPT/HCPCS: 36415; 71045; 71275; 78452; 80048; 82550; 82553; 82962; 83880; 84484; 85025; 85379; 93005; 93010; 93017; 93306; 99406; A9270-GY; A9502; J1650; J1815; J2270; J2405; J2785; Q9967

== ENCOUNTER 2018-04-26 20:09 | Emergency (ER) | payer SELFPAY ==
[2018-04-26 20:46] VITALS: BP 158/82
[2018-04-26 20:58] LABS: Basophils # (Auto) 0.1 K/mm3 (0.0-0.1); Eosinophils # (Auto) 0.3 K/mm3 (0.0-0.4); Lymphocytes # (Auto) 3.6 K/mm3 (1.2-5.4); Lymphocytes % (Auto) 34.3 % (13.4-35.0); Mean Corpuscular HGB Conc 36 % (32-34); Mean Corpuscular Hemoglobin 31 pg (28-32); Mean Corpuscular Volume 86 fl (84-94); Monocytes # (Auto) 0.8 K/mm3 (0.0-0.8); Monocytes % (Auto) 7.2 % (0.0-7.3); Platelet Count 231 K/mm3 (140-440); Red Blood Count 5.27 M/mm3 (3.65-5.03); Red Cell Distribution Width 13.8 % (13.2-15.2)
[2018-04-26 21:00] LABS: Hematocrit 45.5 % (35.5-45.6); Hemoglobin 16.2 gm/dl (11.8-15.2)
[2018-04-26 21:27] LABS: Alanine Aminotransferase 34 units/L (7-56); BUN/Creatinine Ratio 18; Blood Urea Nitrogen 14 mg/dL (9-20); Calcium 9.8 mg/dL (8.4-10.2); Hemolysis Index 46
== END 2018-04-26 21:10 | disposition left against medical advice (07) ==
LOC: ED 20:09
DX: M79.602 Pain in left arm (principal); Z53.21 Procedure and treatment not carried out due to patient leaving prior to being seen by health care provider
CPT/HCPCS: 36415; 80053; 85025; 85379

== ENCOUNTER 2018-04-27 10:47 | Emergency (ER) | payer OTHER ==
[2018-04-27] MEDS ORDERED: CLEOCIN 600 MG/50 mL 600 MG/50 ML BAG IV ONE (12:02)
[2018-04-27] MEDS ORDERED: VIBRAMYCIN PO ONE (12:02)
[2018-04-27] MEDS ORDERED: ZOFRAN IV ONE (12:03)
[2018-04-27] MEDS ORDERED: SUBLIMAZE IV ONE (12:03)
[2018-04-27] MEDS ORDERED: HumuLIN R IV ONE (12:54)
--- NOTE | 2018-04-27 12:59 | Emergency Department Report ---
HPI - General Chief Complaint: Extremity Injury, Upper Time Seen by Provider: 04/27/18 11:18 - HPI HPI: Patient is a 52-year-old male who presents for evaluation of left arm pain. The patient reports redness and pain to the left dorsal wrist and forearm for the past 2 days, moderate in severity, pressure-like and stinging in quality, exacerbated with movement of the distal left arm. Patient denies blood trauma or puncture wound to the left forearm or hand, fever, chills, night sweats, chest pain, dyspnea, syncope, hemoptysis, paresthesias or loss of sensation, or loss of motor function in the left upper extremity. ED Past Medical Hx - Past Medical History Hx CVA: Yes (TIA) Hx Heart Attack/AMI: Yes (x 4) Hx Congestive Heart Failure: Yes Hx Diabetes: Yes Hx Liver Disease: Yes Hx Asthma: No Hx COPD: Yes Additional medical history: sleep apnea - Surgical History Hx Pacemaker: (AICD) Additional Surgical History: cardiac pacemaker/defibrilator - Social History Smoking Status: Current Every Day Smoker Substance Use Type: None - Medications Home Medications: Home Medications Medication Instructions Recorded Confirmed Last Taken Type Aspirin EC [Aspirin Enteric Coated 325 mg PO QDAY 04/03/18 04/03/18 Unknown History TAB] Aspirin [Aspirin BABY CHEW TAB] 81 mg PO QDAY #30 tab.chew 04/06/18 Unknown Rx Atorvastatin [Lipitor] 40 mg PO QHS #30 tablet 04/06/18 Unknown Rx Carvedilol [Coreg] 12.5 mg PO BID #60 tablet 04/06/18 Unknown Rx Furosemide [Lasix TAB] 20 mg PO QDAY #30 tablet 04/06/18 Unknown Rx ISOSORBIDE MONOnitrate [Imdur ER] 60 mg PO QDAY #30 tablet 04/06/18 Unknown Rx Insulin Aspart [NovoLOG Flexpen] 20 units SQ AC #30 insuln.pen 04/06/18 Unknown Rx Insulin Detemir [Levemir Flextouch] 35 unit SQ BID #30 insuln.pen 04/06/18 Unknown Rx Lisinopril [Zestril TAB] 10 mg PO QDAY #30 tablet 04/06/18 Unknown Rx Lispro Insulin [Humalog] 20 unit SUB-Q AC units 04/06/18 Unknown Rx Nitroglycerin [Nitrostat] 0.4 mg SL .Q5MIN PRN #30 tablet 04/06/18 Unknown Rx Rivaroxaban [Xarelto] 20 mg PO QDAY #30 tablet 04/06/18 Unknown Rx traZODone [Desyrel] 100 mg PO QHS #30 tablet 04/06/18 Unknown Rx Clindamycin [Clindamycin CAP] 450 mg PO TID 10 Days #45 cap 04/27/18 Unknown Rx Doxycycline Hyclate [Doxycycline 100 mg PO Q12HR #20 tab 04/27/18 Unknown Rx Hyclate TAB] HYDROcodone/APAP 7.5-325 [[place] 1 each PO Q8HR PRN #15 tablet 04/27/18 Unknown Rx 7.5-325 mg TAB] ED Review of Systems ROS: Stated complaint: BRUISED AROUND PACEMAKER/LEFT ARM SWOLLEN AND NUMB Other details as noted in HPI Constitutional: denies: fever ENT: denies: throat or neck pain Respiratory: denies: cough, shortness of breath Cardiovascular: denies: chest pain Endocrine: denies unexplained weight loss or gain Gastrointestinal: denies: abdominal pain, nausea Genitourinary: denies: dysuria Musculoskeletal: reports left arm pain and redness Skin: denies: rash Neurological: denies: headache Hematological/Lymphatic: denies: easy bleeding or easy bruising Psych: denies sadness or hopelessness Physical Exam - Physical Exam Vital Signs: Vital Signs 04/27/18 04/27/18 04/27/18 10:53 10:58 11:00 Temperature 97.6 F Pulse Rate 170 H 73 73 Respiratory 18 16 13 Rate Blood Pressure O2 Sat by Pulse 98 Oximetry 04/27/18 11:15 Temperature Pulse Rate 70 Respiratory 12 Rate Blood Pressure 128/73 O2 Sat by Pulse 97 Oximetry Physical Exam: General: well-nourished, well-developed, no acute distress Head: Normocephalic, atraumatic Eyes: normal sclera ENT: Mucous membranes are pink and moist Neck: trachea midline, neck supple, No neck stiffness, no cervical adenopathy Respiratory: Breath sounds equal bilaterally, no wheezing, rales, or rhonchi Cardio: S1 and S2 present, no murmurs, rubs, gallops, capillary refill is brisk Abdomen: Normoactive bowel sounds, soft abdomen, no rigidity, no guarding or rebound tenderness Musc: redness, swelling, attendance to palpation present to the dorsal aspect of the distal Left forearm, there is no fusiform swelling of the digits, no pain in the hand or forearm elicited with extension of the digits, hand and forearm compartments are soft,, no signs compartment syndrome, sensation, motor function, and proptosis in the distal left arm intact, capillary refill is brisk no signs of flexor tenosynovitis as well, Skin: No rash Neuro: no facial drooping, normal speech Psych: Normal affect ED Course Vital Signs 04/27/18 04/27/18 04/27/18 10:53 10:58 11:00 Temperature 97.6 F Pulse Rate 170 H 73 73 Respiratory 18 16 13 Rate Blood Pressure O2 Sat by Pulse 98 Oximetry 04/27/18 11:15 Temperature Pulse Rate 70 Respiratory 12 Rate Blood Pressure 128/73 O2 Sat by Pulse 97 Oximetry ED Medical Decision Making - Medical Decision Making The patient was seen and examined by myself. The patient is placed on a quality assurance monitor and continuous pulse ox. On initial evaluation, the patient was found to be in no distress, without fever or wound although wound was documented by triaging nurse/tech. Evaluation orders were placed. Exam findings are consistent with left forearm cellulitis. The patient is given IV fentanyl for his pain. Lab results reveal elevated d-dimer level and elevated glucose greater than 300, and otherwise labs were not concerning including normal WBC. Doppler of the left upper extremity is negative for DVT or SVT. The patient is given IV insulin for treatment of hyperglycemia and IV clindamycin and by mouth doxycycline for treatment of his left forearm cellulitis. The patient was reevaluated and reported that their symptoms were markedly improved. The patient is found to maintain normal vital signs, is afebrile, and is stable for discharge with outpatient follow-up. The patient is given follow-up and return instructions. The patient expressed understanding and agreed with the plan. The patient is discharged in stable condition. Critical care attestation.: If time is entered above; I have spent that time in minutes in the direct care of this critically ill patient, excluding procedure time. ED Disposition Clinical Impression: Cellulitis of left forearm, Cellulitis of left hand, Left upper limb pain, Acute hyperglycemia Disposition: TO HOME OR SELFCARE Is pt being admited?: No Does the pt Need Aspirin: No Condition: Stable Instructions: Cellulitis (ED), Musculoskeletal Pain (ED), Diabetic Hyperglycemia (ED) Prescriptions: Clindamycin [Clindamycin CAP] 450 mg PO TID 10 Days #45 cap Doxycycline Hyclate [Doxycycline Hyclate TAB] 100 mg PO Q12HR #20 tab HYDROcodone/APAP 7.5-325 [[place] 7.5-325 mg TAB] 1 each PO Q8HR PRN #15 tablet PRN Reason: Pain Referrals: PRIMARY CARE, [Primary Care Provider] - 3-5 Days [facility] [Outside] - 3-5 Days Time of Disposition: 13:03
[2018-04-27 14:20] VITALS: BP 110/62
--- NOTE | 2018-04-29 15:00 | Vascular Lab Report ---
LEFT UPPER EXTREMITY VENOUS DUPLEX: REASON FOR EXAM: Pain and swelling of the left upper extremity COMMENTS ON THE LEFT: All arm veins visualized are freely compressible without evidence of internal echogenicity. The subclavian and internal jugular veins are free of thrombus. Flow is spontaneous and phasic throughout. COMMENTS ON THE RIGHT: A limited study of the jugular and subclavian veins shows no evidence of thrombus. IMPRESSION: No evidence of acute or chronic deep venous thrombosis in the left upper extremity.
== END 2018-04-27 14:31 | disposition home or self-care (01) ==
LOC: ED 10:47
DX: L03.114 Cellulitis of left upper limb (principal); E11.65 Type 2 diabetes mellitus with hyperglycemia; I25.2 Old myocardial infarction; I50.9 Heart failure, unspecified; J44.9 Chronic obstructive pulmonary disease, unspecified; F17.200 Nicotine dependence, unspecified, uncomplicated; Z95.0 Presence of cardiac pacemaker; Z86.73 Personal history of transient ischemic attack (TIA), and cerebral infarction without residual deficits; Z79.4 Long term (current) use of insulin
CPT/HCPCS: 82962; 93971; 96365; 96375; 99284; J2405; J3010; J1815

== ENCOUNTER 2018-04-27 18:35 | Inpatient (IN) | payer SELFPAY ==
--- NOTE | 2018-04-27 20:53 | Emergency Department Report ---
Upper Extremity - HPI Chief Complaint: Extremity Injury, Upper Stated Complaint: LEFT ARM NUMB/ SWOLLEN Time Seen by Provider: 04/27/18 20:40 Upper Extremity: Left Arm Occurred When: 2 Days Symptoms: Yes Pain with Movement, Yes Limited Range of Movement, Yes Swelling, No Deformity, No Numbness, No Weakness, No Bruising/Ecchymosis, No Laceration or Abrasion Other History: Patient is a 52-year-old male that presents emergency room with left arm pain and swelling. Patient states she was here earlier today and diagnosed with cellulitis and since leaving his swelling and pain has increased and the redness going up his arm has increased as well. Patient states he called back up here and was told to return for further evaluation. Patient states the pain is a 10 out of 10 and is worse with movement. Patient states that the pain is better with rest and not moving the arm. Patient states he was here earlier and given IV antibiotics and also had an ultrasound done to rule out a clot. Patient states that the ultrasound was negative for clot. Patient denies chest pain shortness of breath. Patient also denies fever and chills. Patient denies diaphoresis. Patient states the pain and swelling and redness started about 2 days ago. Patient states that the redness is worsening of the arm. Patient denies falling and trauma injury ED Review of Systems ROS: Stated complaint: LEFT ARM NUMB/ SWOLLEN Other details as noted in HPI Constitutional: denies: chills, fever Eyes: denies: eye pain, eye discharge, vision change ENT: denies: ear pain, throat pain Respiratory: denies: cough, shortness of breath, wheezing Cardiovascular: denies: chest pain, palpitations Endocrine: no symptoms reported Gastrointestinal: denies: abdominal pain, nausea, diarrhea Genitourinary: denies: urgency, dysuria Musculoskeletal: denies: back pain, joint swelling, arthralgia Skin: denies: rash, lesions Neurological: denies: headache, weakness, paresthesias Psychiatric: denies: anxiety, depression Hematological/Lymphatic: denies: easy bleeding, easy bruising ED Past Medical Hx - Past Medical History Previous Medical History?: Yes Hx CVA: Yes (TIA) Hx Heart Attack/AMI: Yes (x 4) Hx Congestive Heart Failure: Yes Hx Diabetes: Yes Hx Liver Disease: Yes Hx Asthma: No Hx COPD: Yes Additional medical history: sleep apnea - Surgical History Past Surgical History?: Yes Hx Pacemaker: (AICD) Additional Surgical History: cardiac pacemaker/defibrilator - Family History Family history: hypertension - Social History Smoking Status: Current Every Day Smoker Substance Use Type: Prescribed - Medications Home Medications: Home Medications Medication Instructions Recorded Confirmed Last Taken Type Aspirin EC [Aspirin Enteric Coated 325 mg PO QDAY 18 04/03/18 Unknown History TAB] Aspirin [Aspirin BABY CHEW TAB] 81 mg PO QDAY #30 tab.chew 04/06/18 Unknown Rx Atorvastatin [Lipitor] 40 mg PO QHS #30 tablet 04/06/18 Unknown Rx Carvedilol [Coreg] 12.5 mg PO BID #60 tablet 04/06/18 Unknown Rx Furosemide [Lasix TAB] 20 mg PO QDAY #30 tablet 04/06/18 Unknown Rx ISOSORBIDE MONOnitrate [Imdur ER] 60 mg PO QDAY #30 tablet 04/06/18 Unknown Rx Insulin Aspart [NovoLOG Flexpen] 20 units SQ AC #30 insuln.pen 04/06/18 Unknown Rx Insulin Detemir [Levemir Flextouch] 35 unit SQ BID #30 insuln.pen 04/06/18 Unknown Rx Lisinopril [Zestril TAB] 10 mg PO QDAY #30 tablet 04/06/18 Unknown Rx Lispro Insulin [Humalog] 20 unit SUB-Q AC units 04/06/18 Unknown Rx Nitroglycerin [Nitrostat] 0.4 mg SL .Q5MIN PRN #30 tablet 04/06/18 Unknown Rx Rivaroxaban [Xarelto] 20 mg PO QDAY #30 tablet 04/06/18 Unknown Rx traZODone [Desyrel] 100 mg PO QHS #30 tablet 04/06/18 Unknown Rx Clindamycin [Clindamycin CAP] 450 mg PO TID 10 Days #45 cap 04/27/18 Unknown Rx Doxycycline Hyclate [Doxycycline 100 mg PO Q12HR #20 tab 04/27/18 Unknown Rx Hyclate TAB] HYDROcodone/APAP 7.5-325 [[place] 1 each PO Q8HR PRN #15 tablet 04/27/18 Unknown Rx 7.5-325 mg TAB] Upper Extremity Exam - Exam General: Vital signs noted. No distress. Alert and acting appropriately. Lung sounds clear to auscultation. CV exam normal limit. Normal S1 and S2. Erythema noted on the left upper extremity starting in his left hand extending up to his left elbow.. Tenderness to palpation in the erythemic area swelling is also noted. Head and Torso: No HEENT Abnormality, No Neck Tenderness, No Chest/Lungs Abnormality, No Abdominal Tenderness, No Back Tenderness Shoulder Exam: No Shoulder Tenderness, No Clavicle Tenderness, No Normal Range of Motion in Shoulder, No Shoulder Deformity, No AC Joint Tenderness Arm Exam: No Arm/Humerus Tenderness, No Arm Deformity Elbow: Yes Elbow Tenderness, No Normal Range of Motion in Elbow, No Elbow Deformity Forearm: Yes Forearm Tenderness, No Forearm Deformity Wrist: Yes Wrist Tenderness, No Normal ROM in Wrist, No Wrist Deformity Hand: Yes Hand Tenderness, Yes Digit Tenderness, No Hand Deformity CMS Exam: Yes Broken Skin, Yes Normal Distal Pulses, Yes Normal Capillary Refill ED Course Vital Signs 04/27/18 18:47 Temperature 97.9 F Pulse Rate 75 Respiratory 18 Rate Blood Pressure 146/83 O2 Sat by Pulse 98 Oximetry - Reevaluation(s) Reevaluation #1: Hospitalist consulted. Hospital agreed to admit. Case discussed fully with hospitalist. Dr Riddle to assume care. Discussed plan of care with patient. Patient agreed to admission and plan of care. will start pt abx tx in er. 04/27/18 21:50 ED Medical Decision Making - Lab Data Result diagrams: 04/27/18 21:19 04/27/18 21:19 - Medical Decision Making Patient is a 52-year-old male that presented to the ER today for his second visit today for left arm pain and cellulitis. Due to the fact the patient essentially failed outpatient therapy and his white count went up from his earlier visit today. Patient also had a ultrasound done this afternoon and was negative for DVT. Patient is currently on Cymbalta. We will admit patient to the hospitalist service for further evaluation and treatment and IV antibiotics. Patient agrees with plan of care. - Differential Diagnosis cellulitis. arm pain. failed outpt tx. Critical care attestation.: If time is entered above; I have spent that time in minutes in the direct care of this critically ill patient, excluding procedure time. ED Disposition Clinical Impression: Cellulitis of left hand, Cellulitis of forearm, left, Left upper limb pain Disposition: OP ADMIT IP TO THIS HOSP Is pt being admited?: Yes Does the pt Need Aspirin: No Condition: Serious Time of Disposition: 22:10
[2018-04-27 21:34] LABS: Basophils # (Auto) 0.1 K/mm3 (0.0-0.1); Basophils % (Auto) 0.8 % (0.0-1.8); Eosinophils # (Auto) 0.4 K/mm3 (0.0-0.4); Eosinophils % (Auto) 3.5 % (0.0-4.3); Hematocrit 45.4 % (35.5-45.6); Hemoglobin 15.5 gm/dl (11.8-15.2); Lymphocytes # (Auto) 3.6 K/mm3 (1.2-5.4); Lymphocytes % (Auto) 30.9 % (13.4-35.0); Mean Corpuscular HGB Conc 34 % (32-34); Mean Corpuscular Hemoglobin 30 pg (28-32); Mean Corpuscular Volume 87 fl (84-94); Monocytes # (Auto) 0.7 K/mm3 (0.0-0.8); Monocytes % (Auto) 5.8 % (0.0-7.3); Platelet Count 214 K/mm3 (140-440); Red Blood Count 5.24 M/mm3 (3.65-5.03); Red Cell Distribution Width 13.4 % (13.2-15.2)
[2018-04-27 21:47] LABS: Alanine Aminotransferase 31 units/L (7-56); Albumin 3.9 g/dL (3.9-5); BUN/Creatinine Ratio 14; Blood Urea Nitrogen 10 mg/dL (9-20); Calcium 9.1 mg/dL (8.4-10.2); Hemolysis Index 6
[2018-04-27] MEDS ORDERED: VANCOMYCIN/NS 1 GM/250 ML 1 GM/250 ML BAG IV ONE (22:48)
[2018-04-27] MEDS ORDERED: VANCOMYCIN 2,000 MG in NACL 0.9% 500 ML 500 ML IV ONE (23:00)
[2018-04-27] MEDS ORDERED: VANCOMYCIN PHARMACY TO DOSE IV SCH ×2 (23:00→23:45)
[2018-04-27] MEDS ORDERED: ZOSYN/NS 4.5GM/100ML 4.5 GM/100 ML VIAL IV SCH (23:00)
[2018-04-27] MEDS ORDERED: ZOFRAN IV PRN (23:11)
[2018-04-27] MEDS ORDERED: SODIUM CHLORIDE FLUSH SYRINGE 10 ML IV PRN (23:11)
[2018-04-27] MEDS ORDERED: TYLENOL PO PRN (23:11)
[2018-04-27] MEDS ORDERED: AMBIEN PO PRN (23:11)
--- NOTE | 2018-04-27 23:36 | History and Physical Report ---
History of Present Illness Date of examination: 04/27/18 Date of admission: 04/27/18 23:11 Chief complaint: Increasing left forearm swelling History of present illness: Patient is a 52 year old male with history of CHF and CAD who initially presented to the ED today and was found to have an cellulitis of the left forearm. He was given 1 dose of IV antibiotic and subsequently discharged on 2 oral antibiotics. Thereafter, he noticed that his left forearm swelling was increasing with reduced mobility of his hand, which prompted him to return to the ED for further evaluation. He also reported that he couldn't afford the antibiotics he was discharged on. He has associated redness which has improved and pain. He stated that one week ago, he hit his left hand on a truck door during which she sustained a small wound. He denies fever, chills, chest pain, shortness of breath, palpitation, headaches, nausea, vomiting, or dizziness. No leg swelling, orthopnea or PND. Past History Past Medical History: CAD, diabetes, hypertension, other (ANISHA, TIA, CHF) Past Surgical History: Other (AICD placement, carpal tunnel surgery, nasal and throat surgery) Social history: smoking (for 40 years. He denies alcohol or illicit drug use) Family history: other (reviewed and noncontributory) Medications and Allergies Allergies Allergy/AdvReac Type Severity Reaction Status Date / Time No Known Allergies Allergy Verified 04/27/18 10:52 Home Medications Medication Instructions Recorded Confirmed Last Taken Type Aspirin EC [Aspirin Enteric Coated 325 mg PO QDAY 04/03/18 04/03/18 Unknown History TAB] Aspirin [Aspirin BABY CHEW TAB] 81 mg PO QDAY #30 tab.chew 04/06/18 Unknown Rx Atorvastatin [Lipitor] 40 mg PO QHS #30 tablet 04/06/18 Unknown Rx Carvedilol [Coreg] 12.5 mg PO BID #60 tablet 04/06/18 Unknown Rx Furosemide [Lasix TAB] 20 mg PO QDAY #30 tablet 04/06/18 Unknown Rx ISOSORBIDE MONOnitrate [Imdur ER] 60 mg PO QDAY #30 tablet 04/06/18 Unknown Rx Insulin Aspart [NovoLOG Flexpen] 20 units SQ AC #30 insuln.pen 04/06/18 Unknown Rx Insulin Detemir [Levemir Flextouch] 35 unit SQ BID #30 insuln.pen 04/06/18 Unknown Rx Lisinopril [Zestril TAB] 10 mg PO QDAY #30 tablet 04/06/18 Unknown Rx Lispro Insulin [Humalog] 20 unit SUB-Q AC units 04/06/18 Unknown Rx Nitroglycerin [Nitrostat] 0.4 mg SL .Q5MIN PRN #30 tablet 04/06/18 Unknown Rx Rivaroxaban [Xarelto] 20 mg PO QDAY #30 tablet 04/06/18 Unknown Rx traZODone [Desyrel] 100 mg PO QHS #30 tablet 04/06/18 Unknown Rx Clindamycin [Clindamycin CAP] 450 mg PO TID 10 Days #45 cap 04/27/18 Unknown Rx Doxycycline Hyclate [Doxycycline 100 mg PO Q12HR #20 tab 04/27/18 Unknown Rx Hyclate TAB] HYDROcodone/APAP 7.5-325 [[place] 1 each PO Q8HR PRN #15 tablet 04/27/18 Unknown Rx 7.5-325 mg TAB] Active Meds: Active Medications Acetaminophen (Tylenol) 650 mg PO Q4H PRN PRN Reason: Pain MILD(1-3)/Fever >100.5/GARCIA Docusate Sodium (Colace) 100 mg PO BID PABLO Vancomycin HCl 2,000 mg/ (Sodium Chloride) 520 mls @ 250 mls/hr IV ONCE ONE Stop: 04/28/18 01:04 Ondansetron HCl (Zofran) 4 mg IV Q8H PRN PRN Reason: Nausea And Vomiting Oxycodone/Acetaminophen (Percocet 5/325) 1 tab PO Q6H PRN PRN Reason: Pain, Moderate (4-6) Sodium Chloride (Sodium Chloride Flush Syringe 10 Ml) 10 ml IV BID PABLO Sodium Chloride (Sodium Chloride Flush Syringe 10 Ml) 10 ml IV PRN PRN PRN Reason: LINE FLUSH Vancomycin HCl (Vancomycin Pharmacy To Dose) 1 each IV PKCONSULT PABLO; Protocol Zolpidem Tartrate (Ambien) 5 mg PO QHS PRN PRN Reason: Insomnia Review of Systems All systems: negative (except as documented in the HPI, all other systems were reviewed and negative) Exam - Constitutional Vitals: Temp Pulse Resp BP Pulse Ox 98.1 F 70 16 133/85 97 04/27/18 22:25 04/27/18 22:25 04/27/18 22:25 04/27/18 22:25 04/27/18 22:25 General appearance: Present: no acute distress, well-nourished - EENT Eyes: Present: PERRL, EOM intact ENT: hearing intact, clear oral mucosa - Neck Neck: Present: supple, normal ROM - Respiratory Respiratory effort: normal Respiratory: bilateral: CTA - Cardiovascular Rhythm: regular Heart Sounds: Present: S1 & S2. Absent: rub, click - Extremities Extremities: No edema (in BLE) Extremity abnormal: edema (in LT forearm extending to the left hand with mild erythema and tenderness on palpation. Reduced mobility of the left hand), other Peripheral Pulses: within normal limits - Abdominal General gastrointestinal: Present: soft, non-tender, non-distended, normal bowel sounds - Musculoskeletal Musculoskeletal: gait normal, strength equal bilaterally - Psychiatric Psychiatric: appropriate mood/affect - Neurologic Neurologic: CNII-XII intact Results - Labs CBC & Chem 7: 04/27/18 21:19 04/27/18 21: Labs: Laboratory Last Values WBC 11.6 K/mm3 (4.5-11.0) H 04/27/18 21: RBC 5.24 M/mm3 (3.65-5.03) H 04/27/18 21: Hgb 15.5 gm/dl (11.8-15.2) H 04/27/18 21: Hct 45.4 % (35.5-45.6) 04/27/18 21: MCV 87 fl (84-94) 04/27/18 21: MCH 30 pg (28-32) 04/27/18 21: MCHC 34 % (32-34) 04/27/18 21:19 RDW 13.4 % (13.2-15.2) 04/27/18 21: Plt Count 214 K/mm3 (140-440) 04/27/18 21: Lymph % (Auto) 30.9 % (13.4-35.0) 04/27/18 21: [place] % (Auto) 5.8 % (0.0-7.3) 04/27/18 21: Eos % (Auto) 3.5 % (0.0-4.3) 04/27/18 21:19 Baso % (Auto) 0.8 % (0.0-1.8) 04/27/18 21:19 Lymph # 3.6 K/mm3 (1.2-5.4) 04/27/18 21:19 [place] # 0.7 K/mm3 (0.0-0.8) 04/27/18 21:19 Eos # 0.4 K/mm3 (0.0-0.4) 04/27/18 21:19 Baso # 0.1 K/mm3 (0.0-0.1) 04/27/18 21:19 Seg Neutrophils % 59.0 % (40.0-70.0) 04/27/18 21:19 Seg Neutrophils # 6.8 K/mm3 (1.8-7.7) 04/27/18 21:19 Sodium 136 mmol/L (137-145) L 04/27/18 21:19 Potassium 4.2 mmol/L (3.6-5.0) 04/27/18 21:19 Chloride 99.1 mmol/L (98-107) 04/27/18 21:19 Carbon Dioxide 26 mmol/L (22-30) 04/27/18 21:19 Anion Gap 15 mmol/L 04/27/18 21:19 BUN 10 mg/dL (9-20) 04/27/18 21:19 Creatinine 0.7 mg/dL (0.8-1.5) L 04/27/18 21:19 Estimated GFR > 60 ml/min 04/27/18 21:19 BUN/Creatinine Ratio 14 % 04/27/18 21:19 Glucose 220 mg/dL (75-100) H 04/27/18 21:19 Calcium 9.1 mg/dL (8.4-10.2) 04/27/18 21:19 Total Bilirubin 0.30 mg/dL (0.1-1.2) 04/27/18 21:19 AST 21 units/L (5-40) 04/27/18 21:19 ALT 31 units/L (7-56) 04/27/18 21:19 Alkaline Phosphatase 76 units/L (35-129) 04/27/18 21:19 Total Protein 6.9 g/dL (6.3-8.2) 04/27/18 21:19 Albumin 3.9 g/dL (3.9-5) 04/27/18 21:19 Albumin/Globulin Ratio 1.3 % 04/27/18 21:19 Assessment and Plan Assessment and plan: Left forearm and hand cellulitis with abscess -On IV vancomycin -Follow up blood culture results -Consider surgery consult if no improvement IDDM2 with hyperglycemia -On SSI and Lantus History of chronic systolic heart failure -Status post AICD placement -No acute exacerbation History of CAD -Stable Hypertension, stable Prophylaxis -DVT prophylaxis with SCD 38 minutes spent coordinating care
[2018-04-27] MEDS ORDERED: D50W (25GM) Syringe IV PRN (23:38)
[2018-04-28] MEDS: HumuLIN R SUB-Q SCH ×4 (07:30→22:35)
[2018-04-28 08:25] LABS: Basophils # (Auto) 0.1 K/mm3 (0.0-0.1); Basophils % (Auto) 0.7 % (0.0-1.8); Eosinophils # (Auto) 0.3 K/mm3 (0.0-0.4); Eosinophils % (Auto) 3.7 % (0.0-4.3); Hemoglobin 15.1 gm/dl (11.8-15.2); Lymphocytes # (Auto) 2.8 K/mm3 (1.2-5.4); Lymphocytes % (Auto) 29.3 % (13.4-35.0); Mean Corpuscular HGB Conc 35 % (32-34); Mean Corpuscular Hemoglobin 30 pg (28-32); Mean Corpuscular Volume 88 fl (84-94); Monocytes # (Auto) 0.7 K/mm3 (0.0-0.8); Monocytes % (Auto) 7.7 % (0.0-7.3); Platelet Count 187 K/mm3 (140-440); Red Blood Count 5.02 M/mm3 (3.65-5.03); Red Cell Distribution Width 13.8 % (13.2-15.2)
--- NOTE | 2018-04-28 09:37 | Progress Note ---
Assessment and Plan Assessment and plan: Cellulitis left upper exttremity continue vancomycin iv Hypertension. Monitor BP. Diabetes mellitus type 2. check fingerstick glucose qac and hs History of Pulmonary embolism, On xarelto Coronary artery disease. Stable. No chest pain COPD. No shortness of breath DVT Prophylaxis. 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, alert,oriented x3, no focal neurological signs - Constitutional Vitals: Temp Pulse Resp BP Pulse Ox 97.8 F 72 18 111/75 97 04/28/18 05:57 04/28/18 05:57 04/28/18 05:57 04/28/18 05:57 04/28/18 05:57 General appearance: Present: no acute distress, well-nourished Results - Labs CBC & Chem 7: 04/29/18 07:19 04/27/18 21:19 Labs: Laboratory Last Values WBC 9.4 K/mm3 (4.5-11.0) 04/28/18 06:58 RBC 5.02 M/mm3 (3.65-5.03) 04/28/18 06:58 Hgb 15.1 gm/dl (11.8-15.2) 04/28/18 06:58 Hct 44.0 % (35.5-45.6) 04/28/18 06:58 MCV 88 fl (84-94) 04/28/18 06:58 MCH 30 pg (28-32) 04/28/18 06:58 MCHC 35 % (32-34) H 04/28/18 06:58 RDW 13.8 % (13.2-15.2) 04/28/18 06:58 Plt Count 187 K/mm3 (140-440) 04/28/18 06:58 Lymph % (Auto) 29.3 % (13.4-35.0) 04/28/18 06:58 [place] % (Auto) 7.7 % (0.0-7.3) H 04/28/18 06:58 Eos % (Auto) 3.7 % (0.0-4.3) 04/28/18 06:58 Baso % (Auto) 0.7 % (0.0-1.8) 04/28/18 06:58 Lymph # 2.8 K/mm3 (1.2-5.4) 04/28/18 06:58 [place] # 0.7 K/mm3 (0.0-0.8) 04/28/18 06:58 Eos # 0.3 K/mm3 (0.0-0.4) 04/28/18 06:58 Baso # 0.1 K/mm3 (0.0-0.1) 04/28/18 06:58 Seg Neutrophils % 58.6 % (40.0-70.0) 04/28/18 06:58 Seg Neutrophils # 5.5 K/mm3 (1.8-7.7) 04/28/18 06:58 Sodium 136 mmol/L (137-145) L 04/27/18 21:19 Potassium 4.2 mmol/L (3.6-5.0) 04/27/18 21:19 Chloride 99.1 mmol/L (98-107) 04/27/18 21:19 Carbon Dioxide 26 mmol/L (22-30) 04/27/18 21:19 Anion Gap 15 mmol/L 04/27/18 21:19 BUN 10 mg/dL (9-20) 04/27/18 21:19 Creatinine 0.7 mg/dL (0.8-1.5) L 04/27/18 21:19 Estimated GFR > 60 ml/min 04/27/18 21:19 BUN/Creatinine Ratio 14 % 04/27/18 21:19 Glucose 220 mg/dL (75-100) H 04/27/18 21:19 POC Glucose 227 (70-105) H 04/28/18 08:02 Calcium 9.1 mg/dL (8.4-10.2) 04/27/18 21:19 Total Bilirubin 0.30 mg/dL (0.1-1.2) 04/27/18 21:19 AST 21 units/L (5-40) 04/27/18 21:19 ALT 31 units/L (7-56) 04/27/18 21:19 Alkaline Phosphatase 76 units/L (35-129) 04/27/18 21:19 Total Protein 6.9 g/dL (6.3-8.2) 04/27/18 21:19 Albumin 3.9 g/dL (3.9-5) 04/27/18 21:19 Albumin/Globulin Ratio 1.3 % 04/27/18 21:19
[2018-04-28] MEDS: SODIUM CHLORIDE FLUSH SYRINGE 10 ML IV SCH ×2 (10:26→22:36)
[2018-04-28] MEDS: COLACE PO SCH ×2 (10:27→22:35)
[2018-04-28] MEDS: PERCOCET 5/325 PO PRN ×2 (10:31→17:59)
[2018-04-28] MEDS: VANCOMYCIN 2,000 MG in NACL 0.9% 500 ML 500 ML IV SCH (12:58)
[2018-04-28] MEDS: LANTUS SUB-Q SCH (22:34)
[2018-04-29] MEDS: PERCOCET 5/325 PO PRN ×5 (00:13→23:33)
[2018-04-29] MEDS: VANCOMYCIN 2,000 MG in NACL 0.9% 500 ML 500 ML IV SCH ×2 (00:14→12:53)
[2018-04-29] MEDS: HumuLIN R SUB-Q SCH ×5 (07:30→23:53)
[2018-04-29 08:02] LABS: Hematocrit 44.5 % (35.5-45.6); Hemoglobin 15.8 gm/dl (11.8-15.2); Mean Corpuscular HGB Conc 35 % (32-34); Mean Corpuscular Hemoglobin 31 pg (28-32); Mean Corpuscular Volume 86 fl (84-94); Platelet Count 186 K/mm3 (140-440); Red Blood Count 5.17 M/mm3 (3.65-5.03); Red Cell Distribution Width 13.7 % (13.2-15.2)
[2018-04-29] MEDS: COLACE PO SCH ×2 (09:22→23:32)
[2018-04-29] MEDS: SODIUM CHLORIDE FLUSH SYRINGE 10 ML IV SCH ×2 (11:19→23:53)
[2018-04-29] MEDS ORDERED: PERCOCET 5/325 PO PRN (11:32)
--- NOTE | 2018-04-29 11:47 | Progress Note ---
Assessment and Plan Assessment and plan: Cellulitis left upper exttremity continue vancomycin iv Add Clindamicin Doppler US neg for DVT Hypertension. Monitor BP. Diabetes mellitus type 2. check fingerstick glucose qac and hs History of Pulmonary embolism, Continue Xarelto Coronary artery disease. Stable. No chest pain COPD. No shortness of breath DVT Prophylaxis. On xarelto Full code status Poss dc tomorrow. 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: awake, alert,oriented x3, no focal neurological signs - Constitutional Vitals: Temp Pulse Resp BP Pulse Ox 98.6 F 72 20 116/52 96 04/29/18 05:10 04/29/18 05:10 04/29/18 05:10 04/29/18 05:10 04/29/18 05:10 General appearance: Present: no acute distress, obese Results - Labs CBC & Chem 7: 04/29/18 07:19 04/27/18 21:19 Labs: Laboratory Last Values WBC 8.6 K/mm3 (4.5-11.0) 04/29/18 07:19 RBC 5.17 M/mm3 (3.65-5.03) H 04/29/18 07:19 Hgb 15.8 gm/dl (11.8-15.2) H 04/29/18 07:19 Hct 44.5 % (35.5-45.6) 04/29/18 07:19 MCV 86 fl (84-94) 04/29/18 07:19 MCH 31 pg (28-32) 04/29/18 07:19 MCHC 35 % (32-34) H 04/29/18 07:19 RDW 13.7 % (13.2-15.2) 04/29/18 07:19 Plt Count 186 K/mm3 (140-440) 04/29/18 07:19 Lymph % (Auto) 29.3 % (13.4-35.0) 04/28/18 06:58 [place] % (Auto) 7.7 % (0.0-7.3) H 04/28/18 06:58 Eos % (Auto) 3.7 % (0.0-4.3) 04/28/18 06:58 Baso % (Auto) 0.7 % (0.0-1.8) 04/28/18 06:58 Lymph # 2.8 K/mm3 (1.2-5.4) 04/28/18 06:58 [place] # 0.7 K/mm3 (0.0-0.8) 04/28/18 06:58 Eos # 0.3 K/mm3 (0.0-0.4) 04/28/18 06:58 Baso # 0.1 K/mm3 (0.0-0.1) 04/28/18 06:58 Seg Neutrophils % 58.6 % (40.0-70.0) 04/28/18 06:58 Seg Neutrophils # 5.5 K/mm3 (1.8-7.7) 04/28/18 06:58 Sodium 136 mmol/L (137-145) L 04/27/18 21:19 Potassium 4.2 mmol/L (3.6-5.0) 04/27/18 21:19 Chloride 99.1 mmol/L (98-107) 04/27/18 21:19 Carbon Dioxide 26 mmol/L (22-30) 04/27/18 21:19 Anion Gap 15 mmol/L 04/27/18 21:19 BUN 10 mg/dL (9-20) 04/27/18 21:19 Creatinine 0.7 mg/dL (0.8-1.5) L 04/27/18 21:19 Estimated GFR > 60 ml/min 04/27/18 21:19 BUN/Creatinine Ratio 14 % 04/27/18 21:19 Glucose 220 mg/dL (75-100) H 04/27/18 21:19 POC Glucose 151 (70-105) H 04/29/18 08:29 Calcium 9.1 mg/dL (8.4-10.2) 04/27/18 21:19 Total Bilirubin 0.30 mg/dL (0.1-1.2) 04/27/18 21:19 AST 21 units/L (5-40) 04/27/18 21:19 ALT 31 units/L (7-56) 04/27/18 21:19 Alkaline Phosphatase 76 units/L (35-129) 04/27/18 21:19 Total Protein 6.9 g/dL (6.3-8.2) 04/27/18 21:19 Albumin 3.9 g/dL (3.9-5) 04/27/18 21:19 Albumin/Globulin Ratio 1.3 % 04/27/18 21:19
[2018-04-29] MEDS ORDERED: NITROSTAT SL PRN (17:46)
[2018-04-29] MEDS: BABY ASPIRIN PO SCH (18:12)
[2018-04-29] MEDS: XARELTO PO SCH (23:31)
[2018-04-29] MEDS: CLEOCIN 600 MG/50 mL 600 MG/50 ML BAG IV SCH (23:32)
[2018-04-29] MEDS: DESYREL PO SCH (23:32)
[2018-04-29] MEDS: LASIX PO SCH (23:33)
[2018-04-29] MEDS: COREG PO SCH (23:38)
[2018-04-29] MEDS: LANTUS SUB-Q SCH (23:54)
[2018-04-30] MEDS: VANCOMYCIN 2,000 MG in NACL 0.9% 500 ML 500 ML IV SCH ×2 (00:50→12:21)
[2018-04-30 05:53] LABS: Hematocrit 45.7 % (35.5-45.6); Hemoglobin 15.6 gm/dl (11.8-15.2); Mean Corpuscular HGB Conc 34 % (32-34); Mean Corpuscular Hemoglobin 30 pg (28-32); Mean Corpuscular Volume 88 fl (84-94); Platelet Count 205 K/mm3 (140-440); Red Blood Count 5.22 M/mm3 (3.65-5.03); Red Cell Distribution Width 13.4 % (13.2-15.2)
[2018-04-30 06:13] LABS: BUN/Creatinine Ratio 13; Blood Urea Nitrogen 8 mg/dL (9-20); Calcium 8.8 mg/dL (8.4-10.2); Hemolysis Index 6
[2018-04-30] MEDS: CLEOCIN 600 MG/50 mL 600 MG/50 ML BAG IV SCH ×3 (06:37→23:19)
[2018-04-30] MEDS: HumuLIN R SUB-Q SCH ×3 (07:30→17:27)
[2018-04-30] MEDS: BABY ASPIRIN PO SCH (09:28)
[2018-04-30] MEDS: COLACE PO SCH ×2 (09:28→22:45)
[2018-04-30] MEDS: IMDUR PO SCH (09:28)
[2018-04-30] MEDS: LASIX PO SCH (09:29)
[2018-04-30] MEDS: COREG PO SCH ×2 (09:29→23:19)
[2018-04-30] MEDS: ZESTRIL PO SCH (09:29)
[2018-04-30] MEDS: XARELTO PO SCH (09:30)
[2018-04-30] MEDS: SODIUM CHLORIDE FLUSH SYRINGE 10 ML IV SCH ×2 (09:30→23:20)
[2018-04-30] MEDS: PERCOCET 5/325 PO PRN ×2 (11:28→15:22)
--- NOTE | 2018-04-30 16:10 | Progress Note ---
Assessment and Plan /Cellulitis left upper exttremity continue vancomycin and clindamycin iv Doppler US neg for DVT /Hypertension. Monitor BP, cont current meds /Diabetes mellitus type 2. check fingerstick glucose qac and hs /History of Pulmonary embolism, Continue Xarelto /Coronary artery disease. Stable. No chest pain cont home meds /COPD, not in exacerbation No shortness of breath /CHF with Ef 30-35%, compensated /DVT Prophylaxis. On xarelto Full code status Brief history: Patient is a 52 year old male with history of CHF and CAD who initially presented to the ED and was found to have an cellulitis of the left forearm. He was given 1 dose of IV antibiotic and subsequently discharged on 2 oral antibiotics. Thereafter, he noticed that his left forearm swelling was increasing with reduced mobility of his hand, which prompted him to return to the ED for further evaluation. 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: awake, alert,oriented x3, no focal neurological signs Subjective Date of service: 04/30/18 Interval history: Pt seen and examined c/o more swelling and pain of the left hand no chest pain or SOB Objective - Constitutional Vitals: Vital Signs - 12hr 04/30/18 04/30/18 04/30/18 05:04 09:28 09:29 Temperature 98.0 F Pulse Rate 71 80 80 Respiratory 20 Rate Blood Pressure 103/60 120/72 120/72 O2 Sat by Pulse 94 Oximetry 04/30/18 04/30/18 11:13 15:57 Temperature 97.6 F 98.1 F Pulse Rate 70 71 Respiratory 20 20 Rate Blood Pressure 114/68 94/55 O2 Sat by Pulse 98 97 Oximetry - Labs CBC & Chem 7: 04/30/18 05:05 04/30/18 05:05 Labs: Abnormal lab results 04/29/18 04/29/18 04/30/18 Range/Units 17:51 21:45 05:05 RBC 5.22 H (3.65-5.03) M/mm3 Hgb 15.6 H (11.8-15.2) gm/dl Hct 45.7 H (35.5-45.6) % BUN (9-20) mg/dL Creatinine (0.8-1.5) mg/dL Glucose (75-100) mg/dL POC Glucose 213 H 152 H (70-105) 04/30/18 04/30/18 04/30/18 Range/Units 05:05 08:23 11:21 RBC (3.65-5.03) M/mm3 Hgb (11.8-15.2) gm/dl Hct (35.5-45.6) % BUN 8 L (9-20) mg/dL Creatinine 0.6 L (0.8-1.5) mg/dL Glucose 194 H (75-100) mg/dL POC Glucose 189 H 204 H (70-105)
[2018-04-30] MEDS: LANTUS SUB-Q SCH (22:43)
[2018-04-30] MEDS: DESYREL PO SCH (22:45)
[2018-05-01] MEDS: VANCOMYCIN 2,000 MG in NACL 0.9% 500 ML 500 ML IV SCH ×2 (01:50→14:25)
[2018-05-01] MEDS: HumuLIN R SUB-Q SCH ×3 (02:04→11:30)
[2018-05-01] MEDS: CLEOCIN 600 MG/50 mL 600 MG/50 ML BAG IV SCH ×2 (06:43→14:26)
[2018-05-01] MEDS: BABY ASPIRIN PO SCH (10:20)
[2018-05-01] MEDS: COLACE PO SCH (10:20)
[2018-05-01] MEDS: XARELTO PO SCH (10:20)
[2018-05-01] MEDS: ZESTRIL PO SCH (10:20)
[2018-05-01] MEDS: COREG PO SCH (10:21)
[2018-05-01] MEDS: SODIUM CHLORIDE FLUSH SYRINGE 10 ML IV SCH (10:22)
[2018-05-01] MEDS: LASIX PO SCH (10:22)
[2018-05-01] MEDS: IMDUR PO SCH (10:24)
[2018-05-01 13:25] VITALS: BP 111/61
--- NOTE | 2018-05-01 15:07 | Discharge Summary ---
Providers - Providers Date of Admission: 04/27/18 23:11 Date of discharge: 05/01/18 Attending physician: ALYSSA CIFUENTES Primary care physician: SOLO MUSICIAN Hospitalization Condition: Serious Hospital course: /Cellulitis left upper exttremity continue vancomycin and clindamycin iv Doppler US neg for DVT /Hypertension. Monitor BP, cont current meds /Diabetes mellitus type 2. check fingerstick glucose qac and hs /History of Pulmonary embolism, Continue Xarelto /Coronary artery disease. Stable. No chest pain cont home meds /COPD, not in exacerbation No shortness of breath /CHF with Ef 30-35%, compensated /DVT Prophylaxis. On xarelto Full code status Brief history: Patient is a 52 year old male with history of CHF and CAD who initially presented to the ED and was found to have an cellulitis of the left forearm. He was given 1 dose of IV antibiotic and subsequently discharged on 2 oral antibiotics. Thereafter, he noticed that his left forearm swelling was increasing with reduced mobility of his hand, which prompted him to return to the ED for further evaluation. Hospitalist Physical Constitutional: Not in acute distress, lying in bed HEENT: Atraumatic, normocephalic Neck: supple, no lymphadenopathy, Lungs: Clear to auscultation, bilaterally, no wheeze, no crackles CVS: S1-S2 regular, no murmurs, rubs or gallop, Abdomen: soft, non-tender, non distended,bowel sounds are normal, Musculoskeletal: Left upper extremity swollen, erythematous , tender SALES CONTRACTS ANALYST: awake, alert,oriented x3, no focal neurological signs Disposition: DC- TO HOME OR SELFCARE Time spent for discharge: 32 minutes Core Measure Documentation - Palliative Care Palliative Care/ Comfort Measures: Not Applicable - Core Measures Any of the following diagnoses?: heart failure, history only - Heart Failure Discharge Requirements [place]/ARB for LVSD if EF <40%: Yes Beta heidi at discharge: Yes Exam - Constitutional Vitals: Temp Pulse Resp BP Pulse Ox 98.0 F 72 20 111/61 96 05/01/18 13:08 05/01/18 13:08 05/01/18 13:08 05/01/18 13:08 05/01/18 13:08 Plan Activity: advance as tolerated Weight Bearing Status: Weight Bear as Tolerated Diet: low fat, low salt, diabetic Additional Instructions: f/u with PCP in one week Follow up with: PRIMARY CARE, [Primary Care Provider] - 7 Days Prescriptions: Clindamycin [Clindamycin CAP] 600 mg PO BID #14 capsule
== END 2018-05-01 19:48 | disposition home or self-care (01) | DRG 603 ==
LOC: ED 18:35 → 3A 23:11
PROVIDERS: ADMIT Internal Medicine; ATTEND Internal Medicine
DX: L03.114 Cellulitis of left upper limb (principal); I25.10 Atherosclerotic heart disease of native coronary artery without angina pectoris; J44.9 Chronic obstructive pulmonary disease, unspecified; I50.9 Heart failure, unspecified; G47.33 Obstructive sleep apnea (adult) (pediatric); E11.65 Type 2 diabetes mellitus with hyperglycemia; L02.414 Cutaneous abscess of left upper limb; I11.0 Hypertensive heart disease with heart failure; Z95.810 Presence of automatic (implantable) cardiac defibrillator; Z87.891 Personal history of nicotine dependence; Z86.711 Personal history of pulmonary embolism; Z86.73 Personal history of transient ischemic attack (TIA), and cerebral infarction without residual deficits; Z82.49 Family history of ischemic heart disease and other diseases of the circulatory system; I25.2 Old myocardial infarction
CPT/HCPCS: 36415; 80048; 80053; 82962; 85025; 85027; 87040; 93005; 93010; 99406; A9270-GY; J1815; J2543; J3370; J7040

== ENCOUNTER 2018-06-26 16:45 | Inpatient (IN) | payer OTHER ==
[2018-06-26] MEDS ORDERED: ASPIRIN PO ONE (17:30)
[2018-06-26 17:58] LABS: Basophils # (Auto) 0.1 K/mm3 (0.0-0.1); Basophils % (Auto) 0.9 % (0.0-1.8); Eosinophils # (Auto) 0.2 K/mm3 (0.0-0.4); Eosinophils % (Auto) 1.5 % (0.0-4.3); Hematocrit 51.1 % (35.5-45.6); Hemoglobin 17.5 gm/dl (11.8-15.2); Lymphocytes # (Auto) 3.9 K/mm3 (1.2-5.4); Lymphocytes % (Auto) 28.9 % (13.4-35.0); Mean Corpuscular HGB Conc 34 % (32-34); Mean Corpuscular Hemoglobin 30 pg (28-32); Mean Corpuscular Volume 86 fl (84-94); Monocytes # (Auto) 0.7 K/mm3 (0.0-0.8); Platelet Count 288 K/mm3 (140-440); Red Blood Count 5.92 M/mm3 (3.65-5.03); Red Cell Distribution Width 13.5 % (13.2-15.2)
[2018-06-26 18:06] LABS: INR 0.94 (0.87-1.13)
[2018-06-26 18:07] LABS: Partial Thromboplastin Time 27.3 Sec. (24.2-36.6)
[2018-06-26 18:11] LABS: BUN/Creatinine Ratio 10; Blood Urea Nitrogen 8 mg/dL (9-20); Calcium 9.6 mg/dL (8.4-10.2); Hemolysis Index 5
--- NOTE | 2018-06-26 20:30 | XRay Report ---
FINAL REPORT PROCEDURE: XR CHEST ROUTINE 2V TECHNIQUE: PA and lateral chest radiographs were obtained. CPT 05419 HISTORY: chest pain/sob COMPARISON: No prior studies are available for comparison. FINDINGS: Heart: Normal. Mediastinum/Vessels: Normal. Lungs/Pleural space: No infiltrate, effusion, or pneumothorax. Bony thorax: No acute osseous abnormality. Other: Dual lead left-sided pacemaker IMPRESSION: No acute abnormality.
[2018-06-26] MEDS ORDERED: NITROSTAT SL PRN (22:15)
[2018-06-26] MEDS ORDERED: NACL 0.9% 250ML 250 ML IV ONE (22:15)
[2018-06-26] MEDS ORDERED: SUBLIMAZE IV ONE (22:15)
--- NOTE | 2018-06-26 22:17 | Emergency Department Report ---
ED General Adult HPI - General Chief complaint: Chest Pain Stated complaint: CHEST PAIN/DIZZY Time Seen by Provider: 06/26/18 22:03 Source: patient, RN notes reviewed, old records reviewed Mode of arrival: Ambulatory Limitations: No Limitations - History of Present Illness Initial comments: This is a 52-year-old gentleman who is not known to this provider previously. He reports his past medical history includes multiple TIAs, multiple pulmonary emboli, does not currently have IVC filter and is not on on systemic anticoagulation secondary to insurance issues. 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 The patient presents to the ER with a complaint of resolved dizziness and resolves chest pain with shortness of breath. It started earlier on today. The dizziness was described as lightheadedness. It was painless. It is now resolved. The patient currently has no extremity weakness, numbness, loss of vision. Patient also describes resolved chest pain which was central, associated with shortness of breath. It does not radiate to the back, arms or neck. It is now resolved. Patient also complains of depression secondary to his multiple medical issues. He reports that he was at this hospital a few months ago, and was supposed to get a emergency Medicaid, but has not been able to do so secondary to various issues. He is not homicidal or suicidal at this time. He also feels like his defibrillator when off earlier on today. He also feels like he has a left knot in his left upper extremity which is nontraumatic and he reports that he feels like it is growing bigger. He is concerned that he might have an additional/new DVT in his left upper extremity. He's not sure if he's ever had a hypercoagulable workup. -: Sudden Location: chest Radiation: non-radiation Quality: aching Consistency: intermittent Improves with: none Worsens with: none Associated Symptoms: chest pain, loss of appetite, malaise, shortness of breath , weakness. denies: confusion, cough, diaphoresis, fever/chills, headaches, nausea/vomiting, rash, seizure, syncope - Related Data Previous Rx's Medication Instructions Recorded Last Taken Type Aspirin [Aspirin BABY CHEW TAB] 81 mg PO QDAY #30 tab.chew 04/06/18 Unknown Rx Atorvastatin [Lipitor] 40 mg PO QHS #30 tablet 04/06/18 Unknown Rx Carvedilol [Coreg] 12.5 mg PO BID #60 tablet 04/06/18 Unknown Rx Furosemide [Lasix TAB] 20 mg PO QDAY #30 tablet 04/06/18 Unknown Rx ISOSORBIDE MONOnitrate [Imdur ER] 60 mg PO QDAY #30 tablet 04/06/18 Unknown Rx Lisinopril [Zestril TAB] 10 mg PO QDAY #30 tablet 04/06/18 Unknown Rx Rivaroxaban [Xarelto] 20 mg PO QDAY #30 tablet 04/06/18 Unknown Rx traZODone [Desyrel] 100 mg PO QHS #30 tablet 04/06/18 Unknown Rx Doxycycline Hyclate [Doxycycline 100 mg PO Q12HR #20 tab 04/27/18 Unknown Rx Hyclate TAB] Clindamycin [Clindamycin CAP] 600 mg PO BID #14 capsule 05/01/18 Unknown Rx Insulin Detemir [Levemir Flextouch] 10 unit SQ BID #30 insuln.pen 05/01/18 Unknown Rx Lispro Insulin [Humalog] 5 unit SUB-Q AC 30 Days units 05/01/18 Unknown Rx Nitroglycerin [Nitrostat] 0.4 mg SL .Q5MIN PRN 30 Days #30 05/01/18 Unknown Rx tablet Allergies Allergy/AdvReac Type Severity Reaction Status Date / Time No Known Allergies Allergy Verified 04/27/18 10:52 ED Review of Systems ROS: Stated complaint: CHEST PAIN/DIZZY Other details as noted in HPI Comment: All other systems reviewed and negative Psychiatric: depression. denies: homicidal thoughts, suicidal thoughts ED Past Medical Hx - Past Medical History Hx Hypertension: Yes Hx CVA: Yes (TIA) Hx Heart Attack/AMI: Yes (x 4) Hx Congestive Heart Failure: Yes Hx Diabetes: Yes Hx Pulmonary Embolism: Yes Hx Liver Disease: Yes Hx Asthma: No Hx COPD: Yes Additional medical history: sleep apnea - Surgical History Hx Pacemaker: (AICD) Additional Surgical History: cardiac pacemaker/defibrilator - Social History Smoking Status: Current Every Day Smoker Substance Use Type: None - Medications Home Medications: Home Medications Medication Instructions Recorded Confirmed Last Taken Type Aspirin [Aspirin BABY CHEW TAB] 81 mg PO QDAY #30 tab.chew 18 06/26/18 Unknown Rx Atorvastatin [Lipitor] 40 mg PO QHS #30 tablet 04/06/18 06/26/18 Unknown Rx Carvedilol [Coreg] 12.5 mg PO BID #60 tablet 04/06/18 06/26/18 Unknown Rx Furosemide [Lasix TAB] 20 mg PO QDAY #30 tablet 04/06/18 06/26/18 Unknown Rx ISOSORBIDE MONOnitrate [Imdur ER] 60 mg PO QDAY #30 tablet 04/06/18 06/26/18 Unknown Rx Lisinopril [Zestril TAB] 10 mg PO QDAY #30 tablet 04/06/18 06/26/18 Unknown Rx Rivaroxaban [Xarelto] 20 mg PO QDAY #30 tablet 04/06/18 06/26/18 Unknown Rx traZODone [Desyrel] 100 mg PO QHS #30 tablet 04/06/18 06/26/18 Unknown Rx Doxycycline Hyclate [Doxycycline 100 mg PO Q12HR #20 tab 04/27/18 06/26/18 Unknown Rx Hyclate TAB] Clindamycin [Clindamycin CAP] 600 mg PO BID #14 capsule 05/01/18 06/26/18 Unknown Rx Insulin Detemir [Levemir Flextouch] 10 unit SQ BID #30 insuln.pen 05/01/1806/26 Unknown Rx Lispro Insulin [Humalog] 5 unit SUB-Q AC 30 Days units 05/01/18 06/26/18 Unknown Rx Nitroglycerin [Nitrostat] 0.4 mg SL .Q5MIN PRN 30 Days #30 05/01/18 06/26/18 Unknown Rx tablet ED Physical Exam - General Limitations: No Limitations General appearance: alert, in no apparent distress - Head Head exam: Present: atraumatic, normocephalic - Eye Eye exam: Present: normal appearance, PERRL, EOMI, other (visual acuity intact to finger counting, color perception, reading at a close distance). Absent: nystagmus - ENT ENT exam: Present: normal exam, normal orophraynx, mucous membranes moist, normal external ear exam - Neck Neck exam: Present: normal inspection, full ROM. Absent: tenderness, meningismus - Respiratory Respiratory exam: Present: normal lung sounds bilaterally. Absent: respiratory distress - Cardiovascular Cardiovascular Exam: Present: regular rate, normal rhythm, normal heart sounds. Absent: bradycardia, tachycardia, irregular rhythm, systolic murmur, diastolic murmur, rubs, gallop - GI/Abdominal GI/Abdominal exam: Present: soft, normal bowel sounds. Absent: distended, tenderness, guarding, rebound, rigid, pulsatile mass - Rectal Rectal exam: Present: deferred - Extremities Exam Extremities exam: Present: normal inspection, full ROM, normal capillary refill , other (2+ pulses noted in the bilateral upper, lower extremities. Compartments soft. No long bony tenderness. The pelvis is stable.). Absent: tenderness, pedal edema, joint swelling, calf tenderness - Back Exam Back exam: Present: normal inspection, full ROM. Absent: tenderness, CVA tenderness (R), paraspinal tenderness, vertebral tenderness - Neurological Exam Neurological exam: Present: alert, oriented X3, CN II-XII intact, other ( Extraocular movements intact. Tongue midline. No facial droop. Facial sensation intact to light touch in the V1, V2, V3 distribution bilaterally. 5 and 5 strength in 4 extremities.. Sensation is intact to light touch in 4 extremities.). Absent: motor sensory deficit - Psychiatric Psychiatric exam: Present: normal affect, normal mood - Skin Skin exam: Present: warm, dry, intact, normal color. Absent: rash ED Course Vital Signs 06/26/18 06/26/18 06/26/18 17:25 22:43 23:00 Temperature 97.8 F 98 F Pulse Rate 87 71 71 Respiratory 20 14 9 L Rate Blood Pressure 134/78 134/69 Blood Pressure 134/69 [Left] O2 Sat by Pulse 97 99 98 Oximetry - Reevaluation(s) Reevaluation #1: 06/26/18 23:43 [employer] has not called back. Patient has remained in atrial paced rhythm while in the emergency room. I'll defer to inpatient team to further evaluate complaint of defibrillator being fired. Reevaluation #2: 06/27/18 00:12 CT scan of the chest is negative for acute disease. Patient remains hemodynamically stable. The hospital physician, Dr. Villanueva accepted the patient to the medical service. ED Medical Decision Making - Lab Data Result diagrams: 06/26/18 17:35 06/26/18 17:35 Vital Signs 06/26/18 17:25 Temperature 97.8 F Pulse Rate 87 Respiratory 20 Rate Blood Pressure 134/78 O2 Sat by Pulse 97 Oximetry Lab Results 06/26/18 06/26/18 06/26/18 Range/Units 17:35 17:35 17:41 WBC 13.5 H (4.5-11.0) K/mm3 RBC 5.92 H (3.65-5.03) M/mm3 Hgb 17.5 H (11.8-15.2) gm/dl Hct 51.1 H (35.5-45.6) % MCV 86 (84-94) fl MCH 30 (28-32) pg MCHC 34 (32-34) % RDW 13.5 (13.2-15.2) % Plt Count 288 (140-440) K/mm3 Lymph % (Auto) 28.9 (13.4-35.0) % [place] % (Auto) 5.0 (0.0-7.3) % Eos % (Auto) 1.5 (0.0-4.3) % Baso % (Auto) 0.9 (0.0-1.8) % Lymph # 3.9 (1.2-5.4) K/mm3 [place] # 0.7 (0.0-0.8) K/mm3 Eos # 0.2 (0.0-0.4) K/mm3 Baso # 0.1 (0.0-0.1) K/mm3 Seg Neutrophils % 63.7 (40.0-70.0) % Seg Neutrophils # 8.6 H (1.8-7.7) K/mm3 PT 13.0 (12.2-14.9) Sec. INR 0.94 (0.87-1.13) APTT 27.3 (24.2-36.6) Sec. Sodium 135 L (137-145) mmol/L Potassium 4.4 (3.6-5.0) mmol/L Chloride 95.2 L (98-107) mmol/L Carbon Dioxide 27 (22-30) mmol/L Anion Gap 17 mmol/L BUN 8 L (9-20) mg/dL Creatinine 0.8 (0.8-1.5) mg/dL Estimated GFR > 60 ml/min BUN/Creatinine Ratio 10 % Glucose 282 H (75-100) mg/dL Calcium 9.6 (8.4-10.2) mg/dL Troponin T < 0.010 (0.00-0.029) ng/mL 06/26/18 Range/Units 20:18 WBC (4.5-11.0) K/mm3 RBC (3.65-5.03) M/mm3 Hgb (11.8-15.2) gm/dl Hct (35.5-45.6) % MCV (84-94) fl MCH (28-32) pg MCHC (32-34) % RDW (13.2-15.2) % Plt Count (140-440) K/mm3 Lymph % (Auto) (13.4-35.0) % [place] % (Auto) (0.0-7.3) % Eos % (Auto) (0.0-4.3) % Baso % (Auto) (0.0-1.8) % Lymph # (1.2-5.4) K/mm3 [place] # (0.0-0.8) K/mm3 Eos # (0.0-0.4) K/mm3 Baso # (0.0-0.1) K/mm3 Seg Neutrophils % (40.0-70.0) % Seg Neutrophils # (1.8-7.7) K/mm3 PT (12.2-14.9) Sec. INR (0.87-1.13) APTT (24.2-36.6) Sec. Sodium (137-145) mmol/L Potassium (3.6-5.0) mmol/L Chloride (98-107) mmol/L Carbon Dioxide (22-30) mmol/L Anion Gap mmol/L BUN (9-20) mg/dL Creatinine (0.8-1.5) mg/dL Estimated GFR ml/min BUN/Creatinine Ratio % Glucose (75-100) mg/dL Calcium (8.4-10.2) mg/dL Troponin T < 0.010 (0.00-0.029) ng/mL - EKG Data -: EKG Interpreted by [facility] - EKG Data When compared to previous EKG there are: no significant change 06/26/18 22:31 EKG does not demonstrate a STEMI, there is an atrial paced rhythm with good capture, left axis deviation, and a left bundle-branch block. Unchanged from prior EKG from April 2018 - Radiology Data Radiology results: report reviewed, image reviewed X-ray of the chest is negative for acute disease, ICD defibrillator is noted, no acute disease - Medical Decision Making Differential diagnosis, including not limited to: Transient ischemic attack, pulmonary embolus, acute coronary syndrome, pneumonia, GERD, gastritis, hiatal hernia, left upper extremity DVT Dysthymia, depression Assessment and plan: 52-year-old male with multiple complaints. In terms of the patient's dizziness, he has a GCS of 15, with an NIH score of 0. He is therefore not a TPA candidate. Given his nonfocal neurologic examination, he does not require emergent endovascular imaging of the head and neck. A noncontrast CT scan of the brain is pending. In terms of the patient's chest pain, he is chest pain-free at this time. His EKG is unchanged. His troponin is negative 2. He endorsed that he felt like his defibrillator fired. We have placed a call to [employer], and I am waiting for them to call back and will arrange the patient's device to be interrogated in the morning. A CT scan of the chest is pending to exclude a pulmonary embolus. Given that his noncontrast CT scan of the brain is pending at this time, I cannot empirically anticoagulate the patient because we have not ruled out an intracranial hemorrhage at this point in time. Patient complained of depression but did not meet 1013 criteria. A crisis consult has been requested. In addition, a case management consult has been requested for the patient's questions regarding insurance. He also describes a knot that is expanding in his left upper extremity. It is nontender his compartments are soft, with no redness, pus or streaking. I will defer to the inpatient team to further evaluate and manage this, a left upper extremity DVT study can be obtained tomorrow morning. Critical care attestation.: If time is entered above; I have spent that time in minutes in the direct care of this critically ill patient, excluding procedure time. ED Disposition Clinical Impression: Chest pain, Dyspnea, Dizziness Disposition: OP ADMIT IP TO THIS HOSP Is pt being admited?: Yes Condition: Good Instructions: Chest Pain (ED) Referrals: PRIMARY CARE, [Primary Care Provider] - 3-5 Days
--- NOTE | 2018-06-26 23:47 | Cat Scan Report ---
FINAL REPORT EXAM: CT HEAD/BRAIN WO CON HISTORY: dizzy hx of tia TECHNIQUE: 2.5 millimeter axial images from the skullbase to the vertex. Comparison: None FINDINGS: There is no evidence of an acute intracranial process, intracranial hemorrhage or mass effect. There is a small, approximately 4.4 millimeter, extra-axial calcification in the left frontal region. This may represent a small calcified meningioma. The ventricles are normal size. The visualized portions of the orbits, paranasal and mastoid sinuses are notable for mild to moderate bilateral ethmoid sinus and left frontal sinus mucosal thickening. The bony structures are unremarkable in appearance. IMPRESSION: 1. No evidence of an acute intracranial process, intracranial hemorrhage or mass effect. If there is a clinical suspicion of an acute intracranial process, MRI brain may be helpful. 2. Small, approximately 4.4 millimeter, possible calcified meningioma left frontal region. 3. Bilateral ethmoid and left frontal sinus mucosal thickening.
--- NOTE | 2018-06-27 00:02 | Cat Scan Report ---
FINAL REPORT EXAM: CT ANGIO CHEST HISTORY: cp sob hx of pe TECHNIQUE: Following IV administration of 100 cc of Omnipaque 350 axial helical imaging was performed through the chest with maximum intensity projection images and sagittal and coronal reformatted images obtained. Comparison: CT angiogram chest dated April 06, 2018 and chest x-ray also performed today FINDINGS: There is no evidence of infiltrate, pneumothorax or pleural fluid collection. The trachea and bronchi are patent. The heart is normal size with dual lead AICD. The thoracic aorta is normal caliber. There is no evidence of intrathoracic adenopathy. No filling defects are demonstrated within the pulmonary arteries to suggest the presence of pulmonary artery emboli. The visualized portion the upper abdomen is notable for evidence of previous cholecystectomy. The bony structures are unremarkable in appearance. There is an approximately 2.6 centimeter possible inclusion cyst in the left posterior paramidline subdermal region IMPRESSION: 1. No evidence of an acute intrathoracic process. 2. No evidence of pulmonary artery emboli. 3. Dual lead AICD. 4. Approximately 2.6 centimeter possible inclusion cyst left posterior paramidline subdermal region. 5. Evidence of previous cholecystectomy.
[2018-06-27] MEDS ORDERED: TYLENOL PO PRN (00:31)
[2018-06-27] MEDS ORDERED: PERCOCET 5/325 PO PRN (00:31)
[2018-06-27] MEDS ORDERED: SODIUM CHLORIDE FLUSH SYRINGE 10 ML IV PRN (00:31)
[2018-06-27] MEDS ORDERED: ZOFRAN IV PRN (00:31)
[2018-06-27] MEDS ORDERED: D50W (25GM) Syringe IV PRN (00:31)
--- NOTE | 2018-06-27 00:37 | History and Physical Report ---
History of Present Illness Date of examination: 06/26/18 History of present illness: 52-year-old man with history of coronary artery disease, COPD, CHF, hypertension , diabetes, sleep apnea, PE causing emergency room with complaints of chest pain located in the epigastric area which he described as a nagging pain, constant, intensity 7/10, no radiation, better with pain medication. Admits to nausea, diaphoresis, nausea and no shortness of breath or palpitation. He had a stress test in [place] , in february of this year, he state he had a 65% blockage, no stent was placed Review of systems Constitutional: no weight loss, chills, fever Ears, eyes, nose, mouth and throat: no nasal congestion, no nasal discharge, no sinus pressure, no vision change, no red eye. Neck: No neck pain or rigidity. Cardiovascular: no chest pain, palpitations Respiratory: no cough, shortness of breath Gastrointestinal: no abdominal pain hematochezia Genitourinary : no frequency , no hematuria Musculoskeletal: no joint swelling or muscle ache Integumentary: no rash, no pruritis Neurological: no parathesias, no numbness, no focal weakness Endocrine: no cold or heat intolerance, no polyuria or polydipsia Hematologic/Lymphatic: no easy bruising, no easy bleeding, no gland swelling Allergic/Immunologic: no urticaria, no angioedema. PAST MEDICAL HISTORY: coronary artery disease, COPD, CHF, hypertension, diabetes , sleep apnea, PE PAST SURGICAL HISTORY: Cholecystectomy, AICD, pacemaker, vasectomy, carpal tunnel release, back surgery, right knee surgery SOCIAL HISTORY: No alcohol, no drugs, smokes half pack a day FAMILY HISTORY: Hypertension Medications and Allergies Allergies Allergy/AdvReac Type Severity Reaction Status Date / Time No Known Allergies Allergy Verified 04/27/18 10:52 Home Medications Medication Instructions Recorded Confirmed Last Taken Type Aspirin [Aspirin BABY CHEW TAB] 81 mg PO QDAY #30 tab.chew 04/06/18 06/26/18 Unknown Rx Atorvastatin [Lipitor] 40 mg PO QHS #30 tablet 04/06/18 06/26/18 Unknown Rx Carvedilol [Coreg] 12.5 mg PO BID #60 tablet 04/06/18 06/26/18 Unknown Rx Furosemide [Lasix TAB] 20 mg PO QDAY #30 tablet 04/06/18 06/26/18 Unknown Rx ISOSORBIDE MONOnitrate [Imdur ER] 60 mg PO QDAY #30 tablet 04/06/18 06/26/18 Unknown Rx Lisinopril [Zestril TAB] 10 mg PO QDAY #30 tablet 04/06/18 06/26/18 Unknown Rx Rivaroxaban [Xarelto] 20 mg PO QDAY #30 tablet 04/06/18 06/26/18 Unknown Rx traZODone [Desyrel] 100 mg PO QHS #30 tablet 04/06/18 06/26/18 Unknown Rx Doxycycline Hyclate [Doxycycline 100 mg PO Q12HR #20 tab 04/27/18 06/26/18 Unknown Rx Hyclate TAB] Clindamycin [Clindamycin CAP] 600 mg PO BID #14 capsule 05/01/18 06/26/18 Unknown Rx Insulin Detemir [Levemir Flextouch] 10 unit SQ BID #30 insuln.pen 05/01/1806/26 Unknown Rx Lispro Insulin [Humalog] 5 unit SUB-Q AC 30 Days units 05/01/18 06/26/18 Unknown Rx Nitroglycerin [Nitrostat] 0.4 mg SL .Q5MIN PRN 30 Days #30 05/01/18 06/26/18 Unknown Rx tablet Active Meds: Active Medications Acetaminophen (Tylenol) 650 mg PO Q4H PRN PRN Reason: Pain MILD(1-3)/Fever >100.5/GARCIA Aspirin (Baby Aspirin) 81 mg PO QDAY [facility] Atorvastatin Calcium (Lipitor) 40 mg PO QHS [facility] Carvedilol (Coreg) 12.5 mg PO BID [facility] Clindamycin HCl (Cleocin) 600 mg PO BID [facility] Dextrose (D50w (25gm) Syringe) 50 ml IV PRN PRN PRN Reason: Hypoglycemia Enoxaparin Sodium (Lovenox) 30 mg SUB-Q QDAY [facility] Furosemide (Lasix) 20 mg PO QDAY [facility] Insulin Human Lispro (Humalog) 0 unit SUB-Q ACHS [facility]; Protocol Lisinopril (Zestril) 10 mg PO QDAY [facility] Miscellaneous Medication (Insulin Detemir [Levemir Flextouch]) 10 unit SQ BID [facility] Nitroglycerin (Nitrostat) 0.4 mg SL .Q5MIN PRN PRN Reason: Chest Pain Ondansetron HCl (Zofran) 4 mg IV Q4H PRN PRN Reason: Nausea And Vomiting Oxycodone/Acetaminophen (Percocet 5/325) 1 tab PO Q4H PRN PRN Reason: Pain, Moderate (4-6) Rivaroxaban (Xarelto) 20 mg PO QDAY [facility]; Protocol Sodium Chloride (Sodium Chloride Flush Syringe 10 Ml) 10 ml IV BID [facility] Sodium Chloride (Sodium Chloride Flush Syringe 10 Ml) 10 ml IV PRN PRN PRN Reason: LINE FLUSH Trazodone HCl (Desyrel) 100 mg PO QHS [facility] Exam - Physical Exam Narrative exam: Gen. appearance: Patient lying in bed, no apparent distress HEENT: Normocephalic, atraumatic, pupils equally round and reactive to light, extraocular movement intact, and no sclericterus,. No JVD or thyromegaly or nodule,neck supple, no carotid bruit ,mucous membranes moist, no exudate or erythema Heart: S1, S2, regular rate and rhythm Lungs: Clear bilaterally, breathing comfortable Abdomen: Positive bowel sounds, non-tender, nondistended, no organomegaly Extremity:no edema cyanosis, clubbing Skin: no rash, dry, warm Neuro: Oriented 3, cranial nerves II-12 intact, speech is fluent, motor and sensory intact - Constitutional Vitals: Temp Pulse Resp BP Pulse Ox 98 F 76 15 110/80 98 06/26/18 22:43 06/27/18 00:00 06/27/18 00:00 06/27/18 00:00 06/27/18 00:00 Results - Labs CBC & Chem 7: 06/26/18 17:35 06/26/18 17:35 Labs: Abnormal lab results 06/26/18 06/26/18 06/26/18 Range/Units 17:35 17:35 22:54 WBC 13.5 H (4.5-11.0) K/mm3 RBC 5.92 H (3.65-5.03) M/mm3 Hgb 17.5 H (11.8-15.2) gm/dl Hct 51.1 H (35.5-45.6) % Seg Neutrophils # 8.6 H (1.8-7.7) K/mm3 Sodium 135 L (137-145) mmol/L Chloride 95.2 L (98-107) mmol/L BUN 8 L (9-20) mg/dL Glucose 282 H (75-100) mg/dL Salicylates < 0.3 L (2.8-20.0) mg/dL Acetaminophen (10.0-30.0) ug/mL 06/26/18 Range/Units 22:54 WBC (4.5-11.0) K/mm3 RBC (3.65-5.03) M/mm3 Hgb (11.8-15.2) gm/dl Hct (35.5-45.6) % Seg Neutrophils # (1.8-7.7) K/mm3 Sodium (137-145) mmol/L Chloride (98-107) mmol/L BUN (9-20) mg/dL Glucose (75-100) mg/dL Salicylates (2.8-20.0) mg/dL Acetaminophen < 5.0 L (10.0-30.0) ug/mL - Imaging and Cardiology EKG: image reviewed Chest x-ray: image reviewed CT scan - chest: report reviewed CT Scan - head: report reviewed Assessment and Plan Assessment Unstable angina Coronary artery disease CHF, stable Hypertension COPD PE Diabetes Plan Admit to medicine Cardiac enzymes, consult cardiology Percocet for pain, continue appropriate outpatient medications Check fingersticks and initiate insulin sliding scale DVT prophylaxis
[2018-06-27] MEDS: HumaLOG SUB-Q SCH ×3 (07:33→18:28)
[2018-06-27] MEDS ORDERED: COREG PO SCH (10:00)
[2018-06-27] MEDS ORDERED: CLEOCIN PO SCH (10:00)
[2018-06-27] MEDS ORDERED: SODIUM CHLORIDE FLUSH SYRINGE 10 ML IV SCH (10:00)
[2018-06-27] MEDS ORDERED: LANTUS SUB-Q SCH (10:00)
[2018-06-27] MEDS ORDERED: NON-FORMULARY (Insulin Detemir [Levemir Flextouch] 10 UNIT) SQ SCH (10:00)
[2018-06-27] MEDS ORDERED: ZESTRIL PO SCH (10:00)
[2018-06-27] MEDS ORDERED: LASIX PO SCH (10:00)
[2018-06-27] MEDS ORDERED: LOVENOX SUB-Q SCH (10:00)
[2018-06-27] MEDS ORDERED: XARELTO PO SCH (10:00)
[2018-06-27] MEDS ORDERED: BABY ASPIRIN PO SCH (10:00)
--- NOTE | 2018-06-27 10:22 | Consultation ---
History of Present Illness Consult date: 06/27/18 Requesting physician: MARIE ALTAMIRANO Consult reason: chest pain History of present illness: The pt is a 52 YO male with a past medical history significant for reported CAD s/p AMI x 4 (no stents per pt report), AICD/PPM in situ, pulmonary embolism, anticoagulated with Xarelto, TIAs, HTN, DM, COPD, tobacco use, ANISHA, former ETOH use. He has been seen by our practice on prior hospitalization but has admittedly not been compliant with OP follow up. He presented with complaints of chest pain since yesterday at 4:30AM. He describes his chest pain as an intermittent, nonexertional, midsternal pressure. The pain is associated with SOB and palpitations. He also believes that he had an AICD shock yesterday afternoon. He denies any n/v, diaphoresis, dizziness or syncope. He reports that his last AMI was in 12/2017 in [place], [place]. He underwent LHC at that time but was told that his "blockages" were not greater than 80% and thus he did not need PCI. He was found to have "bradycardia and a weak heart" at that time and thus AICD/PPM was implanted. He recently located to [place] because his house was foreclosed and has yet to establish a per diem registered nurse in the area. Lexiscan MPI stress test done 03/2018 was negative for significant ischemia, showed small fixed defect in the apex as well as inferior wall without any reversibility, EF 35%. Echo 03/2018 showed EF 30-35%, RV enlarged with decreased EF. Past History Past Medical History: CAD, COPD, diabetes, hypertension, pulmonary embolism, other (TIAs; ANISHA) Social history: smoking, alcohol abuse Medications and Allergies Allergies Allergy/AdvReac Type Severity Reaction Status Date / Time No Known Allergies Allergy Verified 04/27/18 10:52 Home Medications Medication Instructions Recorded Confirmed Last Taken Type Aspirin [Aspirin BABY CHEW TAB] 81 mg PO QDAY #30 tab.chew 04/06/18 06/26/18 Unknown Rx Atorvastatin [Lipitor] 40 mg PO QHS #30 tablet 04/06/18 06/26/18 Unknown Rx Carvedilol [Coreg] 12.5 mg PO BID #60 tablet 04/06/18 06/26/18 Unknown Rx Furosemide [Lasix TAB] 20 mg PO QDAY #30 tablet 04/06/18 06/26/18 Unknown Rx ISOSORBIDE MONOnitrate [Imdur ER] 60 mg PO QDAY #30 tablet 04/06/18 06/26/18 Unknown Rx Lisinopril [Zestril TAB] 10 mg PO QDAY #30 tablet 04/06/18 06/26/18 Unknown Rx Rivaroxaban [Xarelto] 20 mg PO QDAY #30 tablet 04/06/18 06/26/18 Unknown Rx traZODone [Desyrel] 100 mg PO QHS #30 tablet 04/06/18 06/26/18 Unknown Rx Doxycycline Hyclate [Doxycycline 100 mg PO Q12HR #20 tab 04/27/18 06/26/18 Unknown Rx Hyclate TAB] Clindamycin [Clindamycin CAP] 600 mg PO BID #14 capsule 05/01/18 06/26/18 Unknown Rx Insulin Detemir [Levemir Flextouch] 10 unit SQ BID #30 insuln.pen 05/01/1806/26 Unknown Rx Lispro Insulin [Humalog] 5 unit SUB-Q AC 30 Days units 05/01/18 06/26/18 Unknown Rx Nitroglycerin [Nitrostat] 0.4 mg SL .Q5MIN PRN 30 Days #30 05/01/18 06/26/18 Unknown Rx tablet Active Meds: Active Medications Acetaminophen (Tylenol) 650 mg PO Q4H PRN PRN Reason: Pain MILD(1-3)/Fever >100.5/GARCIA Aspirin (Baby Aspirin) 81 mg PO QDAY [facility] Last Admin: 06/27/18 09:39 Dose: 81 mg Atorvastatin Calcium (Lipitor) 40 mg PO QHS [facility] Carvedilol (Coreg) 12.5 mg PO BID [facility] Last Admin: 06/27/18 09:39 Dose: 12.5 mg Dextrose (D50w (25gm) Syringe) 50 ml IV PRN PRN PRN Reason: Hypoglycemia Furosemide (Lasix) 20 mg PO QDAY [facility] Last Admin: 06/27/18 09:39 Dose: 20 mg Insulin Glargine (Lantus) 10 units SUB-Q BID [facility] Last Admin: 06/27/18 09:40 Dose: 10 units Insulin Human Lispro (Humalog) 0 unit SUB-Q [facility]; Protocol Lisinopril (Zestril) 10 mg PO QDAY [facility] Last Admin: 06/27/18 09:39 Dose: 10 mg Nitroglycerin (Nitrostat) 0.4 mg SL .Q5MIN PRN PRN Reason: Chest Pain Ondansetron HCl (Zofran) 4 mg IV Q4H PRN PRN Reason: Nausea And Vomiting Oxycodone/Acetaminophen (Percocet 5/325) 1 tab PO Q4H PRN PRN Reason: Pain, Moderate (4-6) Last Admin: 06/27/18 06:19 Dose: 1 tab Rivaroxaban (Xarelto) 20 mg PO QDAY [facility]; Protocol Last Admin: 06/27/18 09:39 Dose: 20 mg Sodium Chloride (Sodium Chloride Flush Syringe 10 Ml) 10 ml IV BID [facility] Last Admin: 06/27/18 09:40 Dose: 10 ml Sodium Chloride (Sodium Chloride Flush Syringe 10 Ml) 10 ml IV PRN PRN PRN Reason: LINE FLUSH Trazodone HCl (Desyrel) 100 mg PO QHS [facility] Review of Systems Constitutional: no weight loss, no weight gain, no fever, no chills, no sweats Ears, nose, mouth and throat: no ear pain, no nose pain, no sinus pressure, no sinus pain Cardiovascular: chest pain, palpitations, shortness of breath, no orthopnea, no rapid/irregular heart beat, no edema, no syncope, no lightheadedness, no dyspnea on exertion Respiratory: no cough, no congestion, no wheezing, no pain on inspiration Gastrointestinal: no abdominal pain, no nausea, no vomiting, no diarrhea, no constipation, no change in bowel habits Genitourinary Male: no dysuria, no hematuria, no flank pain, no discharge, no urinary frequency, no urinary hesitancy Musculoskeletal: no neck stiffness, no neck pain, no shooting arm pain, no arm numbness/tingling, no low back pain, no shooting leg pain, no leg numbness/ tingling, no redness of joints Integumentary: no rash, no pruritis, no redness, no sores, no wounds Neurological: no head injury, no paralysis, no weakness, no parathesias, no numbness, no tingling, no seizures, no syncope Psychiatric: no anxiety Endocrine: no cold intolerance, no heat intolerance Hematologic/Lymphatic: no easy bruising, no easy bleeding Allergic/Immunologic: no urticaria, no wheezing Physical Examination Vital Signs Temp Pulse Resp BP Pulse Ox 97.8 F 87 20 134/78 97 06/26/18 17:25 06/26/18 17:25 06/26/18 17:25 06/26/18 17:25 06/26/18 17:25 General appearance: no acute distress HEENT: Positive: PERRL, Normocephaly, Mucus Membranes Moist Neck: Positive: neck supple, trachea midline Cardiac: Positive: Reg Rate and Rhythm, S1/S2 Lungs: Positive: clear to auscultation Neuro: Positive: Grossly Intact Abdomen: Positive: Soft. Negative: Tender Skin: Positive: Clear. Negative: Rash, Wound Musculoskeletal: No Fluid Collection, No Pain, Normal Range of Motion Extremities: Absent: edema Results 06/26/18 17:35 06/26/18 17:35 Coagulation 06/26/18 Range/Units 17:41 PT 13.0 (12.2-14.9) Sec. INR 0.94 (0.87-1.13) APTT 27.3 (24.2-36.6) Sec. CBC 06/26/18 Range/Units 17:35 WBC 13.5 H (4.5-11.0) K/mm3 RBC 5.92 H (3.65-5.03) M/mm3 Hgb 17.5 H (11.8-15.2) gm/dl Hct 51.1 H (35.5-45.6) % Plt Count 288 (140-440) K/mm3 Lymph # 3.9 (1.2-5.4) K/mm3 [place] # 0.7 (0.0-0.8) K/mm3 Eos # 0.2 (0.0-0.4) K/mm3 Baso # 0.1 (0.0-0.1) K/mm3 Comprehensive Metabolic Panel 06/26/18 Range/Units 17:35 Sodium 135 L (137-145) mmol/L Potassium 4.4 (3.6-5.0) mmol/L Chloride 95.2 L (98-107) mmol/L Carbon Dioxide 27 (22-30) mmol/L BUN 8 L (9-20) mg/dL Creatinine 0.8 (0.8-1.5) mg/dL Glucose 282 H (75-100) mg/dL Calcium 9.6 (8.4-10.2) mg/dL - Imaging and Cardiology Echo: report reviewed (03/2018 showed EF 30-35%, RV enlarged with decreased EF. ) EKG: report reviewed, image reviewed EKG interpretations - Telemetry EKG Rhythm: Paced Pacemaker: atrial pacing w/capture Assessment and Plan Assessment: Chest pain - currently resolved; ECG with NAF; Yu negative for AMI CAD s/p AMI x 4 (no stents per pt report) - most recent AMI with LHC was 12 weeks ago per pt report CMP AICD/PPM in situ H/o pulmonary embolism, anticoagulated with Xarelto at home H/o TIAs HTN DM COPD Tobacco use - cessation encouraged ANISHA Former ETOH use Noncompliance Plan: S/p lexiscan MPI stress test 03/2018 which was negative for active ischemia, showed fixed apical and inferior wall perfusion defects, EF 35%. ECG with NAF, Yu negative for AMI. S/p AICD interrogation this AM which revealed normal device function, no shocks , occasional NSVT. No plans for any additional cardiac evaluation at this time. Currently stable cardiac status. Pt may discharge home from cardiology standpoint. Recommend follow up in our office with Jacqueline Acosta NP, within 1-2 weeks of hospital discharge ([phone]). The patient has been seen in conjunction with Dr. Rae who agrees with the assessment and plan of care.
--- NOTE | 2018-06-27 13:33 | Discharge Summary ---
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 operator oracle iam consultant Notified:: PSYCH Phone number called:: [phone] Was contact made?: Yes If yes, spoke with:: IRENE Time called:: 09:12 06/26/18 22:17 Consult to Case Management [CONS] Urgent Services Needed at Discharge: [facility] Notified:: awaiting call back Additional Physician Instructions: Patient needs assistance with getting emergency Medicaid 06/27/18 00:31 Consult to Physician [CONS] Routine Comment: Consulting Provider: ITZ GREENWOOD Physician Instructions: Reason For Exam: ua Primary care physician: DECK MATE Hospitalization Condition: Good Hospital course: Discharge diagnosis: /Chest pain, likely GERD /Hypertension. Monitored BP, BP was stable /Diabetes mellitus type 2. Monitored BG with fingerstick glucose qac and hs /History of Pulmonary embolism, Continue Xarelto /Coronary artery disease. Stable. No chest pain cont home meds /COPD, not in exacerbation No shortness of breath /Chronic systolic CHF with Ef 30-35%, compensated /H.o depression, no SI, outpt follow up /DVT Prophylaxis. On xarelto Full code status Disposition: DC-01 TO HOME OR SELFCARE Time spent for discharge: 32 minutes Core Measure Documentation - Palliative Care Palliative Care/ Comfort Measures: Not Applicable - Core Measures Any of the following diagnoses?: none Exam - Constitutional Vitals: Temp Pulse Resp BP Pulse Ox 100.3 F H 73 21 105/64 96 06/27/18 11:07 06/27/18 11:07 06/27/18 11:07 06/27/18 11:07 06/27/18 11:07 General appearance: Present: no acute distress, well-nourished - EENT Eyes: Present: PERRL ENT: hearing intact, clear oral mucosa - Neck Neck: Present: supple, normal ROM - Respiratory Respiratory effort: normal Respiratory: bilateral: CTA - Cardiovascular Heart Sounds: Present: S1 & S2. Absent: rub, click - Extremities Extremities: pulses symmetrical, No edema Peripheral Pulses: within normal limits - Abdominal General gastrointestinal: Present: soft, non-tender, non-distended, normal bowel sounds - Integumentary Integumentary: Present: clear, warm, dry - Musculoskeletal Musculoskeletal: gait normal, strength equal bilaterally - Psychiatric Psychiatric: appropriate mood/affect, intact judgment & insight - Neurologic Neurologic: CNII-XII intact, moves all extremities Plan Activity: advance as tolerated Weight Bearing Status: Weight Bear as Tolerated Diet: low fat, low salt Additional Instructions: f/u with outpt psych for further eval. f/u at Cardiology clinic in one week. Follow up with: PRIMARY CARE, [Primary Care Provider] - 3-5 Days
[2018-06-27 14:18] LABS: Basophils # (Auto) 0.1 K/mm3 (0.0-0.1); Basophils % (Auto) 0.9 % (0.0-1.8); Eosinophils # (Auto) 0.3 K/mm3 (0.0-0.4); Eosinophils % (Auto) 3.7 % (0.0-4.3); Hematocrit 46.1 % (35.5-45.6); Hemoglobin 15.9 gm/dl (11.8-15.2); Lymphocytes # (Auto) 3.2 K/mm3 (1.2-5.4); Lymphocytes % (Auto) 36.1 % (13.4-35.0); Mean Corpuscular HGB Conc 34 % (32-34); Mean Corpuscular Hemoglobin 30 pg (28-32); Mean Corpuscular Volume 86 fl (84-94); Monocytes # (Auto) 0.6 K/mm3 (0.0-0.8); Monocytes % (Auto) 6.2 % (0.0-7.3); Platelet Count 235 K/mm3 (140-440); Red Blood Count 5.34 M/mm3 (3.65-5.03); Red Cell Distribution Width 13.1 % (13.2-15.2)
[2018-06-27 16:44] VITALS: BP 145/67
[2018-06-27] MEDS ORDERED: DESYREL PO SCH (22:00)
== END 2018-06-27 18:26 | disposition home or self-care (01) | DRG 392 ==
LOC: ED 16:45 → 4A 06-27 00:31
PROVIDERS: ADMIT Internal Medicine; ATTEND Internal Medicine
DX: K21.9 Gastro-esophageal reflux disease without esophagitis (principal); I25.110 Atherosclerotic heart disease of native coronary artery with unstable angina pectoris; I50.22 Chronic systolic (congestive) heart failure; I25.5 Ischemic cardiomyopathy; E11.9 Type 2 diabetes mellitus without complications; J44.9 Chronic obstructive pulmonary disease, unspecified; F32.9 Major depressive disorder, single episode, unspecified; G47.33 Obstructive sleep apnea (adult) (pediatric); I11.0 Hypertensive heart disease with heart failure; Z95.810 Presence of automatic (implantable) cardiac defibrillator; Z86.711 Personal history of pulmonary embolism; Z90.49 Acquired absence of other specified parts of digestive tract; Z86.73 Personal history of transient ischemic attack (TIA), and cerebral infarction without residual deficits; Z72.0 Tobacco use; Z98.52 Vasectomy status; Z82.49 Family history of ischemic heart disease and other diseases of the circulatory system; Z79.01 Long term (current) use of anticoagulants; Z71.6 Tobacco abuse counseling; Z91.19 Patient's noncompliance with other medical treatment and regimen; I25.2 Old myocardial infarction
CPT/HCPCS: 36415; 70450; 71046; 71275; 80048; 80320; 82550; 82962; 84484; 85025; 85610; 85730; 93005; 93010; 99406; G0480; J1815; J3010; J7050; Q9967

== ENCOUNTER 2018-11-12 18:33 | Emergency (ER) | payer MEDICAID, OTHER ==
[2018-11-12 19:22] VITALS: BP 141/84
--- NOTE | 2018-11-12 19:23 | Emergency Department Report ---
Blank Doc - Documentation Documentation: 52 y o male presents to ED with chest pressure radiating to right arm and dizz iness x 2 hours. Hx of FL, DM, HTN, CAD, and COPD. Current smoker PlaN: labs, XR Main side for eval
[2018-11-12 19:46] LABS: Basophils # (Auto) 0.1 K/mm3 (0.0-0.1); Eosinophils # (Auto) 0.3 K/mm3 (0.0-0.4); Eosinophils % (Auto) 1.9 % (0.0-4.3); Hematocrit 49.7 % (35.5-45.6); Hemoglobin 16.9 gm/dl (11.8-15.2); Lymphocytes # (Auto) 4.5 K/mm3 (1.2-5.4); Lymphocytes % (Auto) 32.5 % (13.4-35.0); Mean Corpuscular HGB Conc 34 % (32-34); Mean Corpuscular Volume 87 fl (84-94); Monocytes # (Auto) 0.8 K/mm3 (0.0-0.8); Monocytes % (Auto) 5.7 % (0.0-7.3); Platelet Count 281 K/mm3 (140-440); Red Blood Count 5.72 M/mm3 (3.65-5.03); Red Cell Distribution Width 13.6 % (13.2-15.2)
[2018-11-12 20:03] LABS: Alanine Aminotransferase 31 units/L (7-56); Albumin 4.2 g/dL (3.9-5); BUN/Creatinine Ratio 11; Blood Urea Nitrogen 9 mg/dL (9-20); Calcium 9.6 mg/dL (8.4-10.2); Hemolysis Index 14
--- NOTE | 2018-11-12 20:53 | XRay Report ---
FINAL REPORT EXAM: XR CHEST ROUTINE 2V HISTORY: chest pain radiating to RUE TECHNIQUE: Two-view chest PRIORS: None. FINDINGS: Cardiac silhouette is mildly enlarged. No focal pulmonary infiltrate is identified. No pleural fluid collection seen. Pulmonary vasculature is unremarkable. Pacemaker is present. Lead wires are intact. IMPRESSION: Cardiomegaly and pacemaker
== END 2018-11-12 20:50 | disposition left against medical advice (07) ==
LOC: ED 18:33
DX: R07.89 Other chest pain (principal); E11.9 Type 2 diabetes mellitus without complications; I10 Essential (primary) hypertension; J44.9 Chronic obstructive pulmonary disease, unspecified; I25.2 Old myocardial infarction; F17.200 Nicotine dependence, unspecified, uncomplicated
CPT/HCPCS: 36415; 71046; 80053; 84484; 85025; 93005; 93010; 99283

== ENCOUNTER 2018-11-13 15:40 | Inpatient (IN) | payer SELFPAY ==
--- NOTE | 2018-11-13 16:04 | Emergency Department Report ---
Blank Doc - Documentation Documentation: 52 y o male who left yesterday wo beeing seen was called back for elevated d d evelyn pt cc of sob with chest pain all labs done within 24 hours CTA ordered Reevaluate for r/o PE
[2018-11-13] MEDS ORDERED: NITROSTAT SL ONE (16:48)
[2018-11-13] MEDS ORDERED: NITROSTAT SL PRN ×2 (16:49→23:58)
[2018-11-13] MEDS ORDERED: MORPHINE IV ONE ×2 (16:49→18:54)
--- NOTE | 2018-11-13 16:49 | Emergency Department Report ---
<JAGJIT ZAPATA - Last Filed: 11/13/18 16:46> ED Chest Pain HPI - General Chief Complaint: Chest Pain Stated Complaint: CHEST PAIN/BON/TEST RESULTS Time Seen by Provider: 11/13/18 16:00 Source: patient Mode of arrival: Ambulatory Limitations: No Limitations - History of Present Illness Initial Comments: Patient is a 52-year-old male who is presenting with chest pain. Patient states as a squeezing tight sensation in the chest with shortness of breath. Patient states that approximately a year ago he was told that "one of his arteries around his heart had around 60-65% occlusion". Patient's states that he is more short of breath with movement. His feels as though this similar to her cardiac chest pain he's had the past. He was told by her mop handle assembler in the past that he still would need to have a stent. He has no status currently. Patient's also has a history of PE and is on blood thinners. Patient was seen yesterday but became frustrated and left after being screened but not having a bed yet. Onset: during rest, during exertion Pain Location: substernal Severity: moderate Severity scale (0 -10): 8 Quality: tightness, aching, heaviness Consistency: constant Improves With: nothing - Related Data Home Medications Medication Instructions Recorded Confirmed Last Taken Insulin Detemir [Levemir VIAL] 30 unit SQ BID 08/10/18 08/10/18 08/09/18 Lispro Insulin [Humalog] 20 unit SQ TIDAC 08/10/18 08/10/18 08/09/18 metFORMIN [Glucophage] 500 mg PO QDAY 08/10/18 08/10/18 08/09/18 Previous Rx's Medication Instructions Recorded Last Taken Type Aspirin [Aspirin BABY CHEW TAB] 81 mg PO QDAY #30 tab.chew 04/06/18 08/09/18 Rx Atorvastatin [Lipitor] 40 mg PO QHS #30 tablet 04/06/18 08/09/18 Rx Carvedilol [Coreg] 12.5 mg PO BID #60 tablet 04/06/18 08/09/18 Rx Furosemide [Lasix TAB] 20 mg PO QDAY #30 tablet 04/06/18 08/09/18 Rx ISOSORBIDE MONOnitrate [Imdur ER] 60 mg PO QDAY #30 tablet 04/06/18 08/09/18 Rx Lisinopril [Zestril TAB] 10 mg PO QDAY #30 tablet 04/06/18 08/09/18 Rx Rivaroxaban [Xarelto] 20 mg PO QDAY #30 tablet 04/06/18 08/09/18 Rx traZODone [Desyrel] 100 mg PO QHS #30 tablet 04/06/18 08/09/18 Rx Nitroglycerin [Nitrostat] 0.4 mg SL .Q5MIN PRN 30 Days #30 05/01/18 08/09/18 Rx tablet Azithromycin [Zithromax Z-VONNIE] 0 mg PO DAILY #1 tab 08/12/18 Unknown Rx Benzonatate [Tessalon Perles] 100 mg PO Q8HR #30 capsule 08/12/18 Unknown Rx Allergies Allergy/AdvReac Type Severity Reaction Status Date / Time No Known Allergies Allergy Verified 08/10/18 15:07 Heart Score - HEART Score History: Highly suspicious EKG: Non-specific Age: 45-65 Risk factors: > 3 risk factors or hx of atherosclerotic disease Troponin: < normal limit HEART Score: 6 ED Review of Systems Comment: All other systems reviewed and negative ED Past Medical Hx - Past Medical History Hx Hypertension: Yes Hx CVA: Yes (TIA) Hx Heart Attack/AMI: Yes (x 4) Hx Congestive Heart Failure: Yes Hx Diabetes: Yes Hx Pulmonary Embolism: Yes Hx Liver Disease: Yes Hx Asthma: No Hx COPD: Yes Additional medical history: sleep apnea. afib. enlarge heart. left bundle branch block - Surgical History Hx Pacemaker: Yes (AICD) Hx Cholecystectomy: Yes Additional Surgical History: cardiac pacemaker/defibrilator. carpal tunel. vasectomy. bilateral contruction of spine - Social History Smoking Status: Current Every Day Smoker Substance Use Type: None - Medications Home Medications: Home Medications Medication Instructions Recorded Confirmed Last Taken Type Aspirin [Aspirin BABY CHEW TAB] 81 mg PO QDAY #30 tab.chew 04/06/18 08/10/18 08/09/18 Rx Atorvastatin [Lipitor] 40 mg PO QHS #30 tablet 04/06/18 08/10/18 08/09/18 Rx Carvedilol [Coreg] 12.5 mg PO BID #60 tablet 04/06/18 08/10/18 08/09/18 Rx Furosemide [Lasix TAB] 20 mg PO QDAY #30 tablet 04/06/18 08/10/18 08/09/18 Rx ISOSORBIDE MONOnitrate [Imdur ER] 60 mg PO QDAY #30 tablet 04/06/18 08/10/18 08/09/18 Rx Lisinopril [Zestril TAB] 10 mg PO QDAY #30 tablet 04/06/18 08/10/18 08/09/18 Rx Rivaroxaban [Xarelto] 20 mg PO QDAY #30 tablet 04/06/18 08/10/18 08/09/18 Rx traZODone [Desyrel] 100 mg PO QHS #30 tablet 04/06/18 08/10/18 08/09/18 Rx Nitroglycerin [Nitrostat] 0.4 mg SL .Q5MIN PRN 30 Days #30 05/01/18 08/10/18 08/09/18 Rx tablet Insulin Detemir [Levemir VIAL] 30 unit SQ BID 08/10/18 08/10/18 08/09/18 History Lispro Insulin [Humalog] 20 unit SQ TIDAC 08/10/18 08/10/18 08/09/18 History metFORMIN [Glucophage] 500 mg PO QDAY 08/10/18 08/10/18 08/09/18 History Azithromycin [Zithromax Z-VONNIE] 0 mg PO DAILY #1 tab 08/12/18 Unknown Rx Benzonatate [Tessalon Perles] 100 mg PO Q8HR #30 capsule 08/12/18 Unknown Rx ED Physical Exam - General Limitations: No Limitations General appearance: alert, in no apparent distress - Head Head exam: Present: atraumatic, normocephalic - Eye Eye exam: Present: normal appearance - ENT ENT exam: Present: mucous membranes moist - Neck Neck exam: Present: normal inspection - Respiratory Respiratory exam: Present: normal lung sounds bilaterally. Absent: respiratory distress, wheezes, rales, rhonchi - Cardiovascular Cardiovascular Exam: Present: regular rate, normal rhythm, normal heart sounds. Absent: systolic murmur, diastolic murmur, rubs, gallop - GI/Abdominal GI/Abdominal exam: Present: soft, normal bowel sounds. Absent: distended, tenderness, guarding, rebound - Rectal Rectal exam: Present: deferred - Extremities Exam Extremities exam: Present: normal inspection - Back Exam Back exam: Present: normal inspection - Neurological Exam Neurological exam: Present: alert, oriented X3 - Psychiatric Psychiatric exam: Present: normal affect, normal mood - Skin Skin exam: Present: warm, dry, intact, normal color. Absent: rash CEFERINO score - Ceferino Score Aspirin use within the Past 7 Days: (1) Yes 2 or more Angina events in past 24 hrs: (1) Yes Known CAD with more than 50% Stenosis: (1) Yes Elevated Cardiac Markers: (0) No ST Deviation Greater than 0.5mm: (0) No ED Disposition Clinical Impression: Shortness of breath Chest pain Qualifiers: Chest pain type: unspecified Qualified Code(s): R07.9 - Chest pain, unspecified Disposition: OP ADMIT IP TO THIS HOSP Condition: Stable Instructions: Chest Pain (ED) Referrals: TRAN GATES MD [Primary Care Provider] - 3-5 Days <EVGENY ASIF - Last Filed: 11/13/18 17:28> ED Review of Systems ROS: Stated complaint: CHEST PAIN/OBN/TEST RESULTS Other details as noted in HPI ED Course Vital Signs 11/13/18 11/13/18 15:58 17:09 Temperature 97.5 F L Pulse Rate 97 H 83 Blood Pressure 167/81 126/74 O2 Sat by Pulse 99 Oximetry - Reevaluation(s) Reevaluation #1: 11/13/18 17:25 Patient is speaking in full sentences with no signs of distress noted. ED Medical Decision Making - Lab Data Result diagrams: 11/13/18 16:43 - Medical Decision Making This is a 52-year-old male that presents with chest pain and shortness of breath. Patient is stable and was examined by me and Dr. Zapata. Due to patient having significant cardiac past medical history with symptoms of chest pain, shortness of breath patient is admitted for further evaluation and treatment. Patient was consulted with Dr. Grajeda (hospitalist) for admission and requested patient to be admitted to telemetry. Labs obtained. EKG obtained. D-dimer negative. Troponin negative. He was put on cardiac rehabilitation specialist. At time of admission, the patient does not seem toxic or ill in appearance. No acute signs of distress noted. Patient agrees to admission treatment plan of care. No further questions noted by the patient. Critical care attestation.: If time is entered above; I have spent that time in minutes in the direct care of this critically ill patient, excluding procedure time. ED Disposition Is pt being admited?: Yes
[2018-11-13 17:19] LABS: Basophils # (Auto) 0.1 K/mm3 (0.0-0.1); Basophils % (Auto) 0.9 % (0.0-1.8); Eosinophils # (Auto) 0.2 K/mm3 (0.0-0.4); Eosinophils % (Auto) 1.2 % (0.0-4.3); Hematocrit 48.8 % (35.5-45.6); Hemoglobin 16.4 gm/dl (11.8-15.2); Lymphocytes # (Auto) 2.9 K/mm3 (1.2-5.4); Lymphocytes % (Auto) 22.5 % (13.4-35.0); Mean Corpuscular HGB Conc 34 % (32-34); Mean Corpuscular Volume 87 fl (84-94); Monocytes # (Auto) 0.7 K/mm3 (0.0-0.8); Platelet Count 240 K/mm3 (140-440); Red Blood Count 5.59 M/mm3 (3.65-5.03); Red Cell Distribution Width 13.6 % (13.2-15.2)
--- NOTE | 2018-11-13 17:20 | XRay Report ---
FINAL REPORT EXAM: XR CHEST ROUTINE 2V HISTORY: Chest Pain TECHNIQUE: upright single view chest PRIORS: Comparison is dated November 12, 2018 FINDINGS: Cardiac and mediastinal contours are unremarkable. No focal pulmonary infiltrate is identified. No pleural fluid collection seen. Pulmonary vasculature is unremarkable. Pacemaker is present. Lead wire s are intact. IMPRESSION: Pacemaker. No acute abnormality.
[2018-11-13 17:35] LABS: BUN/Creatinine Ratio 11; Blood Urea Nitrogen 9 mg/dL (9-20); Calcium 9.4 mg/dL (8.4-10.2); Hemolysis Index 46
[2018-11-13 17:43] LABS: Partial Thromboplastin Time 29.6 Sec. (24.2-36.6)
[2018-11-13] MEDS ORDERED: MORPHINE ONE (18:54)
[2018-11-13] MEDS ORDERED: NON-FORMULARY (Fluticasone/Salmeterol [Advair Diskus 250-50 Mcg] 1 PUFF) IH SCH (23:45)
[2018-11-13] MEDS ORDERED: INSULIN DETEMIR 60 UNIT SQ SCH (23:45)
[2018-11-13] MEDS ORDERED: PROAIR IH PRN (23:58)
--- NOTE | 2018-11-13 23:58 | History and Physical Report ---
History of Present Illness Date of examination: 11/13/18 Date of admission: 11/13/18 17:23 Chief complaint: Chest pain for 2 days History of present illness: 52-year-old male with pmh of HTN,CAD,IDDM and HLD presents with chest pain. Squeezing type chest pain with shortness of breath. Patient had multiple stress tests in the past.Last one being a year ago and Cath about 3 years ago.He was told that he had about 60 percent occlusion and that he would need a stent eventually.Chest pain is 8/10 and intermittent in nature.Precordial.Some SOB present.No diaphoresis.No radiation or palpitations.Pateint has AICD Past Medical History Hypertension: Yes CVA: Yes (TIA) Heart Attack/AMI: Yes (x 4) Congestive Heart Failure: Yes Diabetes: Yes Pulmonary Embolism: Yes Liver Disease: yes COPD: Yes Additional medical history: sleep apnea. afib. enlarge heart. left bundle branch block Surgical History Pacemaker: Yes (AICD) Cholecystectomy: Yes Additional Surgical History: cardiac pacemaker/defibrilator. carpal tunel. vasectomy. bilateral contruction of spine - Social History Smoking Status: Current Every Day Smoker Substance Use Type: None - Medications Home Medications: Home Medications Medication Instructions Recorded Confirmed Last Taken Type Aspirin [Aspirin BABY CHEW TAB] 81 mg PO QDAY #30 tab.chew 04/06/18 08/10/18 08/09/18 Rx Atorvastatin [Lipitor] 40 mg PO QHS #30 tablet 04/06/18 08/10/18 08/09/18 Rx Carvedilol [Coreg] 12.5 mg PO BID #60 tablet 04/06/18 08/10/18 08/09/18 Rx Furosemide [Lasix TAB] 20 mg PO QDAY #30 tablet 04/06/18 08/10/18 08/09/18 Rx ISOSORBIDE MONOnitrate [Imdur ER] 60 mg PO QDAY #30 tablet 04/06/18 08/10/18 08/09/18 Rx Lisinopril [Zestril TAB] 10 mg PO QDAY #30 tablet 04/06/18 08/10/18 08/09/18 Rx Rivaroxaban [Xarelto] 20 mg PO QDAY #30 tablet 04/06/18 08/10/18 08/09/18 Rx traZODone [Desyrel] 100 mg PO QHS #30 tablet 04/06/18 08/10/18 08/09/18 Rx Nitroglycerin [Nitrostat] 0.4 mg SL .Q5MIN PRN 30 Days #30 05/01/18 08/10/18 08/09/18 Rx tablet Insulin Detemir [Levemir VIAL] 30 unit SQ BID 08/10/18 08/10/18 08/09/18 History Lispro Insulin [Humalog] 20 unit SQ TIDAC 08/10/18 08/10/18 08/09/18 History metFORMIN [Glucophage] 500 mg PO QDAY 08/10/18 08/10/18 08/09/18 History Azithromycin [Zithromax Z-VONNIE] 0 mg PO DAILY #1 tab 08/12/18 Unknown Rx Benzonatate [Tessalon Perles] 100 mg PO Q8HR #30 capsule 08/12/18 Unknown Rx Medications and Allergies Allergies Allergy/AdvReac Type Severity Reaction Status Date / Time No Known Allergies Allergy Verified 08/10/18 15:07 Home Medications Medication Instructions Recorded Confirmed Last Taken Type ISOSORBIDE MONOnitrate [Imdur ER] 60 mg PO QDAY #30 tablet 04/06/18 11/13/18 08/09/18 Rx Nitroglycerin [Nitrostat] 0.4 mg SL .Q5MIN PRN 30 Days #30 05/01/18 11/13/18 08/09/18 Rx tablet Insulin Detemir [Levemir VIAL] 60 unit SQ BID 08/10/18 11/13/18 08/09/18 History metFORMIN [Glucophage] 500 mg PO BID 08/10/18 11/13/18 08/09/18 History Albuterol Sulfate [Ventolin HFA] 2 puff IH Q4H PRN 11/13/18 11/13/18 Unknown History Aspirin [Aspirin BABY CHEW TAB] 81 mg PO QDAY 11/13/18 11/13/18 Unknown History AtorvaSTATin [Lipitor] 40 mg PO DAILY 11/13/18 11/13/18 Unknown History Canagliflozin [Invokana] 150 mg PO DAILY 11/13/18 11/13/18 Unknown History Cholecalciferol (Vitamin D3) 50,000 unit PO QWEEK 11/13/18 11/13/18 Unknown History [Vitamin D3] Cyclobenzaprine HCl [Flexeril 5 MG 5 mg PO TID 11/13/18 11/13/18 Unknown History TAB] Fluticasone/Salmeterol [Advair 1 puff IH Q4-6H 11/13/18 11/13/18 Unknown History Diskus 250-50 mcg] Furosemide [Lasix TAB] 20 mg PO DAILY 11/13/18 11/13/18 Unknown History Insulin Aspart [Novolog] 30 units SQ TID 11/13/18 11/13/18 Unknown History Lisinopril [Zestril TAB] 10 mg PO DAILY 11/13/18 11/13/18 Unknown History Rivaroxaban [Xarelto] 20 mg PO DAILY 11/13/18 11/13/18 Unknown History traZODone [Desyrel] 100 mg PO DAILY 11/13/18 11/13/18 Unknown History Active Meds: Active Medications Nitroglycerin (Nitrostat) 0.4 mg SL .Q5MIN PRN PRN Reason: Chest Pain Review of Systems All systems: negative Constitutional: no weight loss, no weight gain, no fever, no chills, no sweats, no night sweats Ears, nose, mouth and throat: no dysphagia, no hoarseness, no sore throat Cardiovascular: chest pain, shortness of breath, dyspnea on exertion, no orthopnea, no palpitations, no rapid/irregular heart beat, no syncope Respiratory: dyspnea on exertion, no cough, no cough with sputum, no excessive sputum, no hemoptysis, no shortness of breath Gastrointestinal: no abdominal pain, no nausea, no vomiting, no diarrhea, no constipation, no change in bowel habits, no hematemesis, no coffee ground emesis Genitourinary Male: no dysuria Rectal: no pain Musculoskeletal: no neck stiffness, no neck pain, no shooting arm pain, no arm numbness/tingling, no low back pain, no shooting leg pain, no leg numbness/tingling, no redness of joints Integumentary: no rash, no pruritis, no redness, no sores, no wounds, no jaundice, no boils, no blisters Neurological: no head injury, no transient paralysis, no paralysis, no weakness, no parathesias, no seizures, no syncope Psychiatric: no anxiety, no memory loss Endocrine: no cold intolerance, no heat intolerance, no excessive thirst, no polydipsia, no polyuria Hematologic/Lymphatic: no easy bruising, no easy bleeding Allergic/Immunologic: no urticaria, no allergic rhinitis, no wheezing Exam - Constitutional Vitals: Temp Pulse Resp BP Pulse Ox 98.3 F 72 12 119/78 99 11/13/18 19:39 11/13/18 19:39 11/13/18 19:39 11/13/18 19:39 11/13/18 19:39 General appearance: Present: no acute distress, well-nourished - EENT Eyes: Present: PERRL ENT: hearing intact, clear oral mucosa - Neck Neck: Present: supple, normal ROM - Respiratory Respiratory effort: normal Respiratory: bilateral: CTA - Cardiovascular Heart rate: 78 Rhythm: regular Heart Sounds: Present: S1 & S2. Absent: rub, click - Extremities Extremities: no ischemia, pulses intact, pulses symmetrical, No edema Peripheral Pulses: within normal limits - Abdominal General gastrointestinal: Present: soft, non-tender, non-distended, normal bowel sounds Male genitourinary: Present: normal - Rectal Rectal Exam: deferred - Integumentary Integumentary: Present: clear, warm, dry - Musculoskeletal Musculoskeletal: gait normal, strength equal bilaterally - Psychiatric Psychiatric: appropriate mood/affect, intact judgment & insight - Neurologic Neurologic: CNII-XII intact, moves all extremities - Allied Health Allied health notes reviewed: nursing, case management Results - Labs CBC & Chem 7: 11/13/18 16:43 11/13/18 16:43 Labs: Laboratory Last Values WBC 13.0 K/mm3 (4.5-11.0) H 11/13/18 16:43 RBC 5.59 M/mm3 (3.65-5.03) H 11/13/18 16:43 Hgb 16.4 gm/dl (11.8-15.2) H 11/13/18 16:43 Hct 48.8 % (35.5-45.6) H 11/13/18 16:43 MCV 87 fl (84-94) 11/13/18 16:43 MCH 29 pg (28-32) 11/13/18 16:43 MCHC 34 % (32-34) 11/13/18 16:43 RDW 13.6 % (13.2-15.2) 11/13/18 16:43 Plt Count 240 K/mm3 (140-440) 11/13/18 16:43 Lymph % (Auto) 22.5 % (13.4-35.0) 11/13/18 16:43 [place] % (Auto) 5.0 % (0.0-7.3) 11/13/18 16:43 Eos % (Auto) 1.2 % (0.0-4.3) 11/13/18 16:43 Baso % (Auto) 0.9 % (0.0-1.8) 11/13/18 16:43 Lymph # 2.9 K/mm3 (1.2-5.4) 11/13/18 16:43 [place] # 0.7 K/mm3 (0.0-0.8) 11/13/18 16:43 Eos # 0.2 K/mm3 (0.0-0.4) 11/13/18 16:43 Baso # 0.1 K/mm3 (0.0-0.1) 11/13/18 16:43 Seg Neutrophils % 70.4 % (40.0-70.0) H 11/13/18 16:43 Seg Neutrophils # 9.1 K/mm3 (1.8-7.7) H 11/13/18 16:43 PT 13.6 Sec. (12.2-14.9) 11/13/18 16:42 INR 1.00 (0.87-1.13) 11/13/18 16:42 APTT 29.6 Sec. (24.2-36.6) 11/13/18 16:42 D-Dimer 181.61 ng/mlDDU (0-234) 11/13/18 16:28 Sodium 137 mmol/L (137-145) 11/13/18 16:43 Potassium 4.2 mmol/L (3.6-5.0) 11/13/18 16:43 Chloride 102.6 mmol/L (98-107) 11/13/18 16:43 Carbon Dioxide 22 mmol/L (22-30) 11/13/18 16:43 Anion Gap 17 mmol/L 11/13/18 16:43 BUN 9 mg/dL (9-20) 11/13/18 16:43 Creatinine 0.8 mg/dL (0.8-1.5) 11/13/18 16:43 Estimated GFR > 60 ml/min 11/13/18 16:43 BUN/Creatinine Ratio 11 % 11/13/18 16:43 Glucose 180 mg/dL (75-100) H 11/13/18 16:43 Calcium 9.4 mg/dL (8.4-10.2) 11/13/18 16:43 Troponin T < 0.010 ng/mL (0.00-0.029) 11/13/18 19:12 Short CBC 11/13/18 Range/Units 16:43 WBC 13.0 H (4.5-11.0) K/mm3 Hgb 16.4 H (11.8-15.2) gm/dl Hct 48.8 H (35.5-45.6) % Plt Count 240 (140-440) K/mm3 BMP 11/13/18 16:43 Sodium 137 Potassium 4.2 Chloride 102.6 Carbon Dioxide 22 BUN 9 Creatinine 0.8 Glucose 180 H Calcium 9.4 Cardiac Enzymes 11/13/18 11/13/18 Range/Units 16:28 19:12 Troponin T < 0.010 < 0.010 (0.00-0.029) ng/mL - Imaging and Cardiology EKG: report reviewed (Sinus rhythm IVCD 92/min) Chest x-ray: report reviewed (NAF Pacemaker present) Assessment and Plan Advance Directives: Yes (Full code) VTE prophylaxis?: Chemical Plan of care discussed with patient/family: Yes - Patient Problems (1) ACS (acute coronary syndrome) Current Visit: No Status: Acute Plan to address problem: Patient needs Lexiscan and Serial Troponins Cardiology consult requested (2) CAD (coronary artery disease) Current Visit: No Status: Acute Qualifiers: Coronary Disease-Associated Artery/Lesion type: [place] artery [place] vs. transplanted heart: campo heart Associated angina: with stable angina Qualified Code(s): I25.118 - Atherosclerotic heart disease of campo coronary artery with other forms of angina pectoris Plan to address problem: Cont ISMo and Xarelto (3) COPD (chronic obstructive pulmonary disease) Current Visit: No Status: Chronic Qualifiers: COPD type: unspecified COPD Qualified Code(s): J44.9 - Chronic obstructive pulmonary disease, unspecified Plan to address problem: Cont Bronchodilators (4) HTN (hypertension) Current Visit: No Status: Acute (5) Pulmonary embolism Current Visit: No Status: Chronic Qualifiers: Chronicity: chronic Plan to address problem: On Xarelto (6) IDDM (insulin dependent diabetes mellitus) Current Visit: Yes Status: Chronic Plan to address problem: Cont Insulin and coverage Check A1c (7) Nicotine dependence unspecified, with withdrawal Current Visit: No Status: Chronic Qualifiers: Nicotine product type: cigarettes Qualified Code(s): F17.213 - Nicotine dependence, cigarettes, with withdrawal Plan to address problem: Cont Nicoderm patch (8) HLD (hyperlipidemia) Current Visit: Yes Status: Chronic Qualifiers: Hyperlipidemia type: mixed hyperlipidemia Qualified Code(s): E78.2 - Mixed hyperlipidemia Plan to address problem: Cont statins (9) DVT prophylaxis Current Visit: No Status: Acute Plan to address problem: On Xarelto and GI prophylaxis
[2018-11-14] MEDS ORDERED: PROVENTIL IH PRN (00:30)
[2018-11-14] MEDS: LANTUS SUB-Q SCH ×3 (02:47→21:22)
[2018-11-14] MEDS: BROVANA NEBU IH SCH ×2 (07:31→19:55)
[2018-11-14] MEDS: PULMICORT IH SCH ×2 (07:32→19:55)
[2018-11-14] MEDS: HumaLOG SUB-Q SCH ×7 (07:55→21:22)
[2018-11-14] MEDS ORDERED: INSULIN ASPART 15 UNIT SQ SCH (08:00)
[2018-11-14] MEDS ORDERED: NON-FORMULARY (Cyclobenzaprine Hcl [Flexeril 5 Mg Tab] 5 MG) PO SCH (08:00)
[2018-11-14] MEDS ORDERED: LEXISCAN IV ONE ×2 (09:08)
[2018-11-14] MEDS ORDERED: CANAGLIFLOZIN 150 MG PO SCH (10:00)
--- NOTE | 2018-11-14 11:23 | Discharge Summary ---
Providers - Providers Date of Admission: 11/13/18 17:23 Attending physician: AMAN HARMON MD 11/14/18 01:08 Consult to Physician [CONS] Routine Comment: Consulting Provider: DEMI NANCE Physician Instructions: Reason For Exam: Chest pain Primary care physician: REFUGIO SPAULDING Hospitalization Condition: Stable Hospital course: 52-year-old man with a history of hypertension and CAD and diabetes hyperlipidemia. Status post pacemaker defibrillator. Presents with chest pain associated with shortness of breath. He has history of multiple stents, he had a recent neg cardiac cath 12 weeks ago. He was admitted to the hospital, ACS was ruled out, he went on to have a negative Lexiscan nuclear stress test. The patient was counseled on tobacco cessation, he was reassured and subsequently discharged. Diagnoses Chest pain, costocondritis CAD Hypertension Type 2 diabetes, insulin-dependent Tobacco abuse Disposition: DC- TO HOME OR SELFCARE Time spent for discharge: 33 minutes Core Measure Documentation - Palliative Care Palliative Care/ Comfort Measures: Not Applicable - Core Measures Any of the following diagnoses?: none Exam - Constitutional Vitals: Temp Pulse Resp BP Pulse Ox 97.5 F L 85 17 125/74 98 11/14/18 07:27 11/14/18 07:33 11/14/18 07:33 11/14/18 09:39 11/14/18 07:34 General appearance: Present: no acute distress, well-nourished - EENT Eyes: Present: PERRL ENT: hearing intact, clear oral mucosa - Neck Neck: Present: supple, normal ROM - Respiratory Respiratory effort: normal Respiratory: bilateral: CTA - Cardiovascular Heart Sounds: Present: S1 & S2. Absent: rub, click - Extremities Extremities: pulses symmetrical, No edema Peripheral Pulses: within normal limits - Abdominal General gastrointestinal: Present: soft, non-tender, non-distended, normal bowel sounds Male genitourinary: Present: normal - Integumentary Integumentary: Present: clear, warm, dry - Musculoskeletal Musculoskeletal: gait normal, strength equal bilaterally - Psychiatric Psychiatric: appropriate mood/affect, intact judgment & insight - Neurologic Neurologic: CNII-XII intact, moves all extremities Plan Follow up with: TRAN GATES MD [Staff Physician] - 3-5 Days
[2018-11-14] MEDS: DESYREL PO SCH (11:58)
[2018-11-14] MEDS: GLUCOPHAGE PO SCH ×2 (11:59→17:11)
[2018-11-14] MEDS: FLEXERIL PO SCH ×3 (11:59→21:20)
[2018-11-14] MEDS: BABY ASPIRIN PO SCH (12:00)
[2018-11-14] MEDS: LASIX PO SCH (12:00)
[2018-11-14] MEDS: XARELTO PO SCH (12:00)
[2018-11-14] MEDS: IMDUR PO SCH (12:02)
[2018-11-14] MEDS: ZESTRIL PO SCH (12:02)
--- NOTE | 2018-11-14 12:50 | Consultation ---
History of Present Illness Consult date: 11/14/18 Requesting physician: PREMA ROJAS Consult reason: chest pain History of present illness: The pt is a 52 YO male with a past medical history significant for reported CAD s/p AMI x 4 (no stents per pt report), AICD in situ, pulmonary embolism, anticoagulated with Xarelto, TIAs, HTN, DM, COPD, tobacco use, ANISHA, former ETOH use. He is followed in our office by Dr. Winters. He presented with complaints of chest pain and headache for several days prior to arrival. He describes his chest pain as an intermittent, nonexertional, midsternal pressure. The pain is associated with nausea. He denies any SOB, palpitations, vomiting, diaphoresis, dizziness or syncope. He reports that his last AMI was in 12/2017 in [place], [place]. He underwent LHC at that time but was told that his "blockages" were not greater than 80% and thus he did not need PCI. He was found to have "bradycardia and a weak heart" at that time and thus AICD/PPM was implanted. Lexiscan MPI stress test done 03/2018 was negative for significant ischemia, kostas wed small fixed defect in the apex as well as inferior wall without any reversibility, EF 35%. Echo 03/2018 showed EF 30-35%, RV enlarged with decreased EF. Past History Past Medical History: CAD, COPD, diabetes, hypertension Past Surgical History: Other (AICD) Social history: smoking, alcohol abuse (former ) Medications and Allergies Allergies Allergy/AdvReac Type Severity Reaction Status Date / Time No Known Allergies Allergy Verified 08/10/18 15:07 Home Medications Medication Instructions Recorded Confirmed Last Taken Type ISOSORBIDE MONOnitrate [Imdur ER] 60 mg PO QDAY #30 tablet 04/06/18 11/13/18 08/09/18 Rx Nitroglycerin [Nitrostat] 0.4 mg SL .Q5MIN PRN 30 Days #30 05/01/18 11/13/18 08/09/18 Rx tablet Insulin Detemir [Levemir VIAL] 60 unit SQ BID 08/10/18 11/13/18 08/09/18 History metFORMIN [Glucophage] 500 mg PO BID 08/10/18 11/13/18 08/09/18 History Albuterol Sulfate [Ventolin HFA] 2 puff IH Q4H PRN 11/13/18 11/13/18 Unknown History Aspirin [Aspirin BABY CHEW TAB] 81 mg PO QDAY 11/13/18 11/13/18 Unknown History AtorvaSTATin [Lipitor] 40 mg PO DAILY 11/13/18 11/13/18 Unknown History Canagliflozin [Invokana] 150 mg PO DAILY 11/13/18 11/13/18 Unknown History Cholecalciferol (Vitamin D3) 50,000 unit PO QWEEK 11/13/18 11/13/18 Unknown History [Vitamin D3] Cyclobenzaprine HCl [Flexeril 5 MG 5 mg PO TID 11/13/18 11/13/18 Unknown History TAB] Fluticasone/Salmeterol [Advair 1 puff IH Q4-6H 11/13/18 11/13/18 Unknown History Diskus 250-50 mcg] Furosemide [Lasix TAB] 20 mg PO DAILY 11/13/18 11/13/18 Unknown History Insulin Aspart [NovoLOG 100 30 units SQ TID 11/13/18 11/13/18 Unknown History UNITS/ML VIAL] Lisinopril [Zestril TAB] 10 mg PO DAILY 11/13/18 11/13/18 Unknown History Rivaroxaban [Xarelto] 20 mg PO DAILY 11/13/18 11/13/18 Unknown History traZODone [Desyrel] 100 mg PO DAILY 11/13/18 11/13/18 Unknown History Active Meds: Active Medications Albuterol (Proventil) 2.5 mg IH Q4HRT PRN PRN Reason: Shortness Of Breath Arformoterol Tartrate (Brovana Nebu) 15 mcg IH Q12HRT [facility] Last Admin: 11/14/18 07:31 Dose: 15 mcg Documented by: Aspirin (Baby Aspirin) 81 mg PO QDAY [facility] Last Admin: 11/14/18 12:00 Dose: 81 mg Documented by: Atorvastatin Calcium (Lipitor) 40 mg PO DAILY [facility] Last Admin: 11/14/18 11:59 Dose: 40 mg Documented by: Budesonide (Pulmicort) 0.5 mg IH Q12HRT [facility] Last Admin: 11/14/18 07:32 Dose: 0.5 mg Documented by: Cyclobenzaprine HCl (Flexeril) 5 mg PO TID [facility] Last Admin: 11/14/18 11:59 Dose: 5 mg Documented by: Furosemide (Lasix) 20 mg PO DAILY [facility] Last Admin: 11/14/18 12:00 Dose: 20 mg Documented by: Insulin Glargine (Lantus) 60 units SUB-Q BID [facility] Last Admin: 11/14/18 02:47 Dose: Not Given Documented by: Insulin Human Lispro (Humalog) 15 unit SUB-Q TIDAC [facility] Insulin Human Lispro (Humalog) 0 unit SUB-Q ACHS [facility]; Protocol Isosorbide Mononitrate (Imdur) 60 mg PO QDAY [facility] Last Admin: 11/14/18 12:02 Dose: 60 mg Documented by: Lisinopril (Zestril) 10 mg PO DAILY [facility] Last Admin: 11/14/18 12:02 Dose: 10 mg Documented by: Metformin HCl (Glucophage) 500 mg PO BIDDIAB [facility] Last Admin: 11/14/18 11:59 Dose: 500 mg Documented by: Miscellaneous Medication (Canagliflozin [Invokana]) 150 mg PO DAILY [facility] Nitroglycerin (Nitrostat) 0.4 mg SL .Q5MIN PRN PRN Reason: Chest Pain Rivaroxaban (Xarelto) 20 mg PO DAILY [facility]; Protocol Trazodone HCl (Desyrel) 100 mg PO DAILY [facility] Last Admin: 11/14/18 11:58 Dose: 100 mg Documented by: Review of Systems Constitutional: no weight loss, no weight gain, no fever, no chills, no sweats Ears, nose, mouth and throat: no ear pain, no nose pain, no sinus pressure, no sinus pain Cardiovascular: chest pain, high blood pressure, no orthopnea, no palpitations, no rapid/irregular heart beat, no edema, no syncope, no lightheadedness, no shortness of breath, no dyspnea on exertion Respiratory: no cough, no shortness of breath, no dyspnea on exertion, no congestion, no wheezing, no pain on inspiration Gastrointestinal: nausea, no abdominal pain, no vomiting, no diarrhea, no constipation, no change in bowel habits Genitourinary Male: no dysuria, no hematuria, no flank pain, no discharge, no urinary frequency, no urinary hesitancy Musculoskeletal: no neck stiffness, no neck pain, no shooting arm pain, no arm numbness/tingling, no low back pain, no shooting leg pain, no leg numbness/tingling Integumentary: no rash, no pruritis, no redness, no sores, no wounds Neurological: headaches, no head injury, no paralysis, no weakness, no parathesi as, no numbness, no tingling, no seizures, no syncope Psychiatric: no anxiety Endocrine: no cold intolerance, no heat intolerance Physical Examination Vital Signs Temp Pulse BP Pulse Ox 97.5 F L 97 H 167/81 99 11/13/18 15:58 11/13/18 15:58 11/13/18 15:58 11/13/18 15:58 General appearance: no acute distress HEENT: Positive: PERRL, Normocephaly, Mucus Membranes Moist Neck: Positive: neck supple, trachea midline Cardiac: Positive: Reg Rate and Rhythm, S1/S2 Lungs: Positive: clear to auscultation Neuro: Positive: Grossly Intact Abdomen: Positive: Soft. Negative: Tender Skin: Negative: Rash, Wound Musculoskeletal: No Pain Extremities: Absent: edema Results 11/13/18 16:43 11/13/18 16:43 Coagulation 11/13/18 Range/Units 16:42 PT 13.6 (12.2-14.9) Sec. INR 1.00 (0.87-1.13) APTT 29.6 (24.2-36.6) Sec. CBC 11/13/18 Range/Units 16:43 WBC 13.0 H (4.5-11.0) K/mm3 RBC 5.59 H (3.65-5.03) M/mm3 Hgb 16.4 H (11.8-15.2) gm/dl Hct 48.8 H (35.5-45.6) % Plt Count 240 (140-440) K/mm3 Lymph # 2.9 (1.2-5.4) K/mm3 [place]igg # 0.7 (0.0-0.8) K/mm3 Eos # 0.2 (0.0-0.4) K/mm3 Baso # 0.1 (0.0-0.1) K/mm3 Comprehensive Metabolic Panel 11/13/18 Range/Units 16:43 Sodium 137 (137-145) mmol/L Potassium 4.2 (3.6-5.0) mmol/L Chloride 102.6 (98-107) mmol/L Carbon Dioxide 22 (22-30) mmol/L BUN 9 (9-20) mg/dL Creatinine 0.8 (0.8-1.5) mg/dL Glucose 180 H (75-100) mg/dL Calcium 9.4 (8.4-10.2) mg/dL - Imaging and Cardiology Echo: report reviewed ( 03/2018 showed EF 30-35%, RV enlarged with decreased EF. ) EKG: report reviewed, image reviewed EKG interpretations - Telemetry EKG Rhythm: Paced Pacemaker: ventricular pacing w/capt Assessment and Plan Assessment: Chest pain - currently resolved; ECG with NAF; Yu negative for AMI CAD s/p AMI x 4 (no stents per pt report) - most recent AMI with LHC was 12 weeks ago per pt report CMP AICD/PPM in situ H/o pulmonary embolism, anticoagulated with Xarelto at home H/o TIAs HTN DM COPD Tobacco use - cessation encouraged ANISHA Former ETOH use Noncompliance Plan: S/p lexiscan MPI stress test today which was negative for active ischemia, EF 30%. Chest pain currently resolved. Currently stable cardiac status. Pt may discharge home from cardiology standpoint on home cardiac regimen. Recommend follow up in our office with Dr. Winters within 1-2 weeks of hospital discharge ([phone]). The patient has been seen in conjunction with Dr. Calderon who agrees with the assessment and plan of care.
--- NOTE | 2018-11-14 21:28 | Treadmill Report ---
SINGLE ISOTOPE DUAL STUDY MYOCARDIAL PERFUSION SCAN REPORT AGE: 52. SEX: Male. REFERRING PHYSICIAN: PREMA ROJAS MD DESCRIPTION OF PROCEDURE: The patient received 10 mCi of technetium 99m Myoview intravenously under resting conditions. Resting myocardial perfusion scan was done. Subsequently, the patient underwent Lexiscan stress test as per the protocol. During Lexiscan stress, the patient received 28 mCi of technetium 99m Myoview intravenously. After 30-60 minutes, post stress images were done. Computerized reconstruction images were performed for analysis. The post-stress images revealed small mild mid inferior and small mild apical perfusion defect. Left ventricle was found to be mildly dilated and severe global left ventricular systolic dysfunction was seen with EF around 30%. The resting myocardial perfusion scan again revealed the perfusion defect seen in the stress images. CONCLUSION: 1. Small mild fixed mid inferior wall perfusion defect. 2. Small mild fixed apical perfusion defect. 3. Mildly dilated left ventricle. 4. Severe global left ventricular systolic dysfunction with LVEF around 30%. JOB# [id number] [facility]
[2018-11-15] MEDS: PULMICORT IH SCH (07:52)
[2018-11-15] MEDS: BROVANA NEBU IH SCH (07:52)
[2018-11-15] MEDS: HumaLOG SUB-Q SCH ×4 (07:54→11:59)
[2018-11-15] MEDS: GLUCOPHAGE PO SCH (07:55)
[2018-11-15] MEDS: BABY ASPIRIN PO SCH (09:23)
[2018-11-15] MEDS: FLEXERIL PO SCH (09:23)
[2018-11-15] MEDS: DESYREL PO SCH (09:23)
[2018-11-15] MEDS: XARELTO PO SCH (09:23)
[2018-11-15] MEDS: ZESTRIL PO SCH (09:24)
[2018-11-15] MEDS: LANTUS SUB-Q SCH (09:24)
[2018-11-15] MEDS: IMDUR PO SCH (09:24)
[2018-11-15] MEDS: LASIX PO SCH (09:24)
--- NOTE | 2018-11-15 09:46 | Progress Note ---
Assessment and Plan chest pain mi r/o possible muskeletal ischemic cardiomyopathy htn chol cad dm back pain tobacco rec: cont current meds and pt states was told he needed back surgery will followup with ortho and followup in office Subjective Date of service: 11/15/18 Principal diagnosis: back and chest pain Interval history: pt has cont back and chest pain Objective Vital Signs Temp Pulse Pulse Resp Resp BP Pulse Ox 11/15/18 09:24 74 115/71 11/15/18 07:49 97.3 F L 74 18 115/71 97 11/15/18 05:36 97.9 F 81 17 89/37 96 11/15/18 04:00 70 11/14/18 23:25 98.1 F 72 17 114/66 94 11/14/18 20:04 89 18 11/14/18 20:00 98.6 F 73 17 103/65 99 11/14/18 19:57 86 18 99 11/14/18 16:48 98.0 F 77 18 94/61 94 11/14/18 12:02 70 143/84 - Physical Examination General: Appears Well HEENT: Positive: PERRL, Normocephaly, Mucus Membranes Moist Neck: Positive: neck supple, trachea midline Cardiac: Positive: Reg Rate and Rhythm Lungs: Positive: Normal Exam Neuro: Positive: Grossly Intact Abdomen: Positive: Soft. Negative: Tender Skin: Negative: Rash, Wound Musculoskeletal: No Pain Extremities: Absent: edema - Imaging and Cardiology EKG: report reviewed, image reviewed Echo: report reviewed ( 03/2018 showed EF 30-35%, RV enlarged with decreased EF. ), other (11/14/2017 ef 25% setpal and anterior wall hypokinesis) Cardiac cath: report reviewed (cath as per patient patent vessels) - Telemetry EKG Rhythm: Paced Pacemaker: ventricular pacing w/capt
[2018-11-15 11:09] VITALS: BP 115/65
--- NOTE | 2018-11-15 15:39 | Progress Note ---
Assessment and Plan Assessment and plan: 52m admitted for CP plan acs ruled out, ce neg x3 for stress test today cardiology input appreciated cont home meds Dx chest pain htn History Interval history: no, cp, sob, n/v, abdominal pain, fever or chills Hospitalist Physical - Constitutional Vitals: Temp Pulse Resp BP Pulse Ox 97.6 F 72 18 115/65 96 11/15/18 10:56 11/15/18 10:56 11/15/18 10:56 11/15/18 10:56 11/15/18 10:56 General appearance: Present: no acute distress, well-nourished - EENT Eyes: Present: PERRL ENT: hearing intact - Neck Neck: Present: supple - Respiratory Respiratory effort: normal Respiratory: bilateral: CTA - Cardiovascular Rhythm: regular Heart Sounds: Present: S1 & S2 - Extremities Extremities: no ischemia - Abdominal General gastrointestinal: soft - Integumentary Integumentary: Present: clear - Psychiatric Psychiatric: appropriate mood/affect - Neurologic Neurologic: CNII-XII intact Results - Labs CBC & Chem 7: 11/13/18 16:43 11/13/18 16:43 Labs: Laboratory Last Values WBC 13.0 K/mm3 (4.5-11.0) H 11/13/18 16:43 RBC 5.59 M/mm3 (3.65-5.03) H 11/13/18 16:43 Hgb 16.4 gm/dl (11.8-15.2) H 11/13/18 16:43 Hct 48.8 % (35.5-45.6) H 11/13/18 16:43 MCV 87 fl (84-94) 11/13/18 16:43 MCH 29 pg (28-32) 11/13/18 16:43 MCHC 34 % (32-34) 11/13/18 16:43 RDW 13.6 % (13.2-15.2) 11/13/18 16:43 Plt Count 240 K/mm3 (140-440) 11/13/18 16:43 Lymph % (Auto) 22.5 % (13.4-35.0) 11/13/18 16:43 [place] % (Auto) 5.0 % (0.0-7.3) 11/13/18 16:43 Eos % (Auto) 1.2 % (0.0-4.3) 11/13/18 16:43 Baso % (Auto) 0.9 % (0.0-1.8) 11/13/18 16:43 Lymph # 2.9 K/mm3 (1.2-5.4) 11/13/18 16:43 [place] # 0.7 K/mm3 (0.0-0.8) 11/13/18 16:43 Eos # 0.2 K/mm3 (0.0-0.4) 11/13/18 16:43 Baso # 0.1 K/mm3 (0.0-0.1) 11/13/18 16:43 Seg Neutrophils % 70.4 % (40.0-70.0) H 11/13/18 16:43 Seg Neutrophils # 9.1 K/mm3 (1.8-7.7) H 11/13/18 16:43 PT 13.6 Sec. (12.2-14.9) 11/13/18 16:42 INR 1.00 (0.87-1.13) 11/13/18 16:42 APTT 29.6 Sec. (24.2-36.6) 11/13/18 16:42 D-Dimer 181.61 ng/mlDDU (0-234) 11/13/18 16:28 Sodium 137 mmol/L (137-145) 11/13/18 16:43 Potassium 4.2 mmol/L (3.6-5.0) 11/13/18 16:43 Chloride 102.6 mmol/L (98-107) 11/13/18 16:43 Carbon Dioxide 22 mmol/L (22-30) 11/13/18 16:43 Anion Gap 17 mmol/L 11/13/18 16:43 BUN 9 mg/dL (9-20) 11/13/18 16:43 Creatinine 0.8 mg/dL (0.8-1.5) 11/13/18 16:43 Estimated GFR > 60 ml/min 11/13/18 16:43 BUN/Creatinine Ratio 11 % 11/13/18 16:43 Glucose 180 mg/dL (75-100) H 11/13/18 16:43 POC Glucose 153 (70-105) H 11/15/18 10:57 Hemoglobin A1c 9.4 % (4-6) H 11/15/18 04:30 Calcium 9.4 mg/dL (8.4-10.2) 11/13/18 16:43 Troponin T < 0.010 ng/mL (0.00-0.029) 11/14/18 06:20
== END 2018-11-15 12:17 | disposition home or self-care (01) | DRG 206 ==
LOC: ED 15:40 → 4A 17:23
PROVIDERS: ADMIT Internal Medicine; ATTEND Internal Medicine
DX: M94.0 Chondrocostal junction syndrome [Tietze] (principal); I27.82 Chronic pulmonary embolism; F17.213 Nicotine dependence, cigarettes, with withdrawal; E11.9 Type 2 diabetes mellitus without complications; I25.5 Ischemic cardiomyopathy; M54.9 Dorsalgia, unspecified; J44.9 Chronic obstructive pulmonary disease, unspecified; G47.33 Obstructive sleep apnea (adult) (pediatric); F10.10 Alcohol abuse, uncomplicated; I11.0 Hypertensive heart disease with heart failure; E78.2 Mixed hyperlipidemia; I50.9 Heart failure, unspecified; I25.118 Atherosclerotic heart disease of native coronary artery with other forms of angina pectoris; Z79.82 Long term (current) use of aspirin; Z95.810 Presence of automatic (implantable) cardiac defibrillator; Z95.5 Presence of coronary angioplasty implant and graft; Z71.6 Tobacco abuse counseling; Z79.4 Long term (current) use of insulin; I25.2 Old myocardial infarction; Z79.01 Long term (current) use of anticoagulants; Z86.73 Personal history of transient ischemic attack (TIA), and cerebral infarction without residual deficits; Z79.899 Other long term (current) drug therapy; Z91.19 Patient's noncompliance with other medical treatment and regimen; Z90.49 Acquired absence of other specified parts of digestive tract
CPT/HCPCS: 36415; 71046; 78452; 80048; 82962; 83036; 84484; 85025; 85379; 85610; 85730; 93005; 93010; 93017; 93306; 94640; G0378; A9270-GY; A9502; J1815; J2270; J2785

== ENCOUNTER 2018-12-24 17:30 | Emergency (ER) | payer OTHER ==
[2018-12-24 19:09] VITALS: BP 164/98
--- NOTE | 2018-12-24 19:12 | Emergency Department Report ---
Chief Complaint: Extremity Injury, Upper Stated Complaint: LT SHOULDER PAIN/HAND NUMB Time Seen by Provider: 12/24/18 19:07 - HPI History of Present Illness: This is a 53 y.o. male that presents with left shoulder pain radiating to fingers x 2 days. PMH COPD, HTN, CAD. - ROS Review of Systems: left shoulder pain - Exam Vital Signs: Vital Signs 12/24/18 19:08 Temperature 98.2 F Pulse Rate 87 Blood Pressure 164/98 MSE screening note: Focused history and physical exam performed. Due to findings the following was ordered: XR left shoulder. Fast track for further evaluation. ED Disposition for MSE Condition: Stable
--- NOTE | 2018-12-24 21:31 | XRay Report ---
PROCEDURE: LEFT SHOULDER, 3 OR MORE VIEWS TECHNIQUE: LEFT shoulder radiographs including AP views in internal and external rotation and abduct ion. CPT 38172 HISTORY: Pain COMPARISONS: None . FINDINGS: Fracture (s) and/or Dislocation(s): None . Joint space(s): Normal . Soft tissues: Normal . Bone mineralization: Normal . Foreign bodies: None . IMPRESSION: Normal Examination . This document is electronically signed by Freddie Lora MD., December 24 2018 09:29:26 PM ET
[2018-12-24] MEDS ORDERED: DECADRON IM ONE (22:34)
[2018-12-24] MEDS ORDERED: NORCO 5/325 PO ONE (22:34)
[2018-12-24] MEDS ORDERED: FLEXERIL PO ONE (22:37)
--- NOTE | 2018-12-24 22:38 | Emergency Department Report ---
Upper Extremity - HPI Chief Complaint: Extremity Injury, Upper Stated Complaint: LT SHOULDER PAIN/HAND NUMB Time Seen by Provider: 12/24/18 19:07 Upper Extremity: Left Shoulder, Left Arm Occurred When: 2 Days Mechanism: Other (patient states as My Shoulder Overnight 2 Nights Ago no I am numbness and tingling that radiates to the second third and fourth fingers random motions intact strength is intact paresthesia primary symptom) Symptoms: Yes Pain with Movement, Yes Numbness, No Deformity, No Limited Range of Movement, No Weakness, No Swelling, No Bruising/Ecchymosis, No Laceration or Abrasion ED Review of Systems ROS: Stated complaint: LT SHOULDER PAIN/HAND NUMB Other details as noted in HPI Constitutional: denies: chills, fever Eyes: denies: eye pain, eye discharge, vision change ENT: denies: ear pain, throat pain Respiratory: denies: cough, shortness of breath, wheezing Cardiovascular: denies: chest pain, palpitations Endocrine: no symptoms reported Gastrointestinal: denies: abdominal pain, nausea, diarrhea Genitourinary: denies: urgency, dysuria Musculoskeletal: denies: back pain, joint swelling, arthralgia Skin: denies: rash, lesions Neurological: numbness, paresthesias (left arm ). denies: headache, weakness, abnormal gait, vertigo Psychiatric: denies: anxiety, depression Hematological/Lymphatic: denies: easy bleeding, easy bruising ED Past Medical Hx - Past Medical History Previous Medical History?: Yes Hx Hypertension: Yes Hx CVA: Yes (TIA) Hx Heart Attack/AMI: Yes (x 4) Hx Congestive Heart Failure: Yes Hx Diabetes: Yes Hx Pulmonary Embolism: Yes Hx Liver Disease: Yes Hx Asthma: No Hx COPD: Yes Additional medical history: sleep apnea. afib. enlarge heart. left bundle branch block - Surgical History Past Surgical History?: Yes Hx Pacemaker: Yes (AICD) Hx Cholecystectomy: Yes Additional Surgical History: cardiac pacemaker/defibrilator. carpal tunel. vasectomy. bilateral contruction of spine - Social History Smoking Status: Current Every Day Smoker Substance Use Type: None - Medications Home Medications: Home Medications Medication Instructions Recorded Confirmed Last Taken Type ISOSORBIDE MONOnitrate [Imdur ER] 60 mg PO QDAY #30 tablet 04/06/18 11/13/18 08/09/18 Rx Nitroglycerin [Nitrostat] 0.4 mg SL .Q5MIN PRN 30 Days #30 05/01/18 11/13/18 08/09/18 Rx tablet Insulin Detemir [Levemir VIAL] 60 unit SQ BID 08/10/18 11/13/18 08/09/18 History metFORMIN [Glucophage] 500 mg PO BID 08/10/18 11/13/18 08/09/18 History Albuterol Sulfate [Ventolin HFA] 2 puff IH Q4H PRN 11/13/18 11/13/18 Unknown History Aspirin [Aspirin BABY CHEW TAB] 81 mg PO QDAY 11/13/18 11/13/18 Unknown History AtorvaSTATin [Lipitor] 40 mg PO DAILY 11/13/18 11/13/18 Unknown History Canagliflozin [Invokana] 150 mg PO DAILY 11/13/18 11/13/18 Unknown History Cholecalciferol (Vitamin D3) 50,000 unit PO QWEEK 11/13/18 11/13/18 Unknown History [Vitamin D3] Cyclobenzaprine HCl [Flexeril 5 MG 5 mg PO TID 11/13/18 11/13/18 Unknown History TAB] Fluticasone/Salmeterol [Advair 1 puff IH Q4-6H 11/13/18 11/13/18 Unknown History Diskus 250-50 mcg] Furosemide [Lasix TAB] 20 mg PO DAILY 11/13/18 11/13/18 Unknown History Insulin Aspart [NovoLOG 100 30 units SQ TID 11/13/18 11/13/18 Unknown History UNITS/ML VIAL] Lisinopril [Zestril TAB] 10 mg PO DAILY 11/13/18 11/13/18 Unknown History Rivaroxaban [Xarelto] 20 mg PO DAILY 11/13/18 11/13/18 Unknown History traZODone [Desyrel] 100 mg PO DAILY 11/13/18 11/13/18 Unknown History Diclofenac [Keyla Ruvalcaba] 75 mg PO TID PRN #60 tablet 12/25/18 Unknown Rx methOCARBAMOL [Robaxin TAB] 1,000 mg PO TID #90 tab 12/25/18 Unknown Rx predniSONE [Deltasone] 50 mg PO QDAY 5 Days #5 tab 12/25/18 Unknown Rx Upper Extremity Exam - Exam General: Vital signs noted. No distress. Alert and acting appropriately. Head and Torso: Yes Neck Tenderness, No HEENT Abnormality, No Chest/Lungs Abnormality, No Abdominal Tenderness, No Back Tenderness Shoulder Exam: Yes Shoulder Tenderness, Yes Normal Range of Motion in Shoulder, Yes AC Joint Tenderness, No Clavicle Tenderness, No Shoulder Deformity Arm Exam: Yes Arm/Humerus Tenderness, No Arm Deformity Elbow: Yes Normal Range of Motion in Elbow, No Elbow Tenderness, No Elbow Deformity Forearm: Yes Forearm Tenderness, Yes Pain with Pronation, Yes Pain with Supination, No Forearm Deformity Wrist: Yes Normal ROM in Wrist, No Wrist Tenderness, No Wrist Deformity, No Snuffbox Tenderness, No Pain with Axial Thumb Compression (vibratory classes) Hand: Yes Normal ROM in Digit(s), No Hand Tenderness, No Hand Deformity, No Digit Tenderness, No Digit(s) Deformity, No Tendon Dysfunction CMS Exam: Yes Normal Distal Pulses (1), Yes Normal Capillary Refill, Yes Normal Distal Sensation (patient will goNormal is visible ABG 7MC. Warm S4 we will we'll utilize followThe worse Dr. lewis bilaterally monitor lites as call normal work.), No Broken Skin ED Course Vital Signs 12/24/18 19:08 Temperature 98.2 F Pulse Rate 87 Blood Pressure 164/98 ED Medical Decision Making - Radiology Data Radiology results: report reviewed, image reviewed rdering Physician: OSBALDO MORENO Date of Service: 12/24/18 Procedure(s): XR shoulder 2+V LT Accession Number(s): [id number] cc: OSBALDO MORENO Fluoro Time In Minutes: PROCEDURE: LEFT SHOULDER, 3 OR MORE VIEWS TECHNIQUE: LEFT shoulder radiographs including AP views in internal and external rotation and abduction. CPT 34081 HISTORY: Pain COMPARISONS: None . FINDINGS: Fracture (s) and/or Dislocation(s): None . Joint space(s): Normal . Soft tissues: Normal . Bone mineralization: Normal . Foreign bodies: None . IMPRESSION: Normal Examination . This document is electronically signed by Freddie Belel MD., December 24 2018 09:29:26 PM ET Transcribed By: CO Dictated By: FREDDIE BELLE MD Electronically Authenticated By: FREDDIE BELLE MD Signed Date/Time: 12/24/182130 DD/ 09 TD/TT: 12/24/182001 PROCEDURE: CT CERVICAL SPINE WO CON TECHNIQUE: Computerized tomography of the cervical spine was performed from the skull base to T1 without contrast material. CT DOSE LENGTH PRODUCT: mGycm HISTORY: numbness COMPARISONS: None . FINDINGS: The skull base and foramen magnum are intact. Cervical vertebrae are intact. There is straightening of the cervical spine. There are no fractures or malalignments. There is narrowing of the disc space at C5-C6 and C6-C7. There is no facet dislocation. Soft tissues are unremarkable. IMPRESSION: No significant abnormality . This document is electronically signed by Freddie eBlle MD., December 24 2018 11:34:44 PM ET Transcribed By: CO Dictated By: FREDDIE BELLE MD Electronically Authenticated By: FREDDIE BELLE MD Signed Date/Time: 12/24/182336 DD/ 04 TD/TT: 12/24/182304 ROCEDURE: CT HEAD/BRAIN WO CON TECHNIQUE: Spiral imaging of the brain was obtained without the use of IV contrast. HISTORY: numbness COMPARISONS: Prior CT scan of the brain 06/25/2018 FINDINGS: Brain: Brain density appears normal. No evidence of intracranial hemorrhage. No parenchymal hemorrhage, mass lesions or mass effect are seen. No abnormal extra-axial fluid collects or masses are seen. Ventricles: Ventricles are normal size and are midline. Bone Windows: No evidence of skull fracture. Paranasal sinuses: Visualized portions are clear.. Mastoid air cells: Clear. IMPRESSION: Negative exam. This document is electronically signed by Gelacio Bliss MD., December 24 2018 11:10:45 PM ET Transcribed By: DFN Dictated By: GELACIO BLISS MD Electronically Authenticated By: GELACIO BLISS MD Signed Date/Time: 12/24/182312 DD/ 02 TD/TT: 12/24/182303 - Medical Decision Making symptoms are improved ct head neg for cva bleed or mass, xray normal, ct cspine: C5,6,&7 narrowing, this is like cervical radiculopathy versus sunday nighth palsy, plan : Methocarbamol, Diclofenac, Prednisone, follow up with nuerology tomorrow , follow up with pcp tomorrow return to ed if symptoms wosren pt verbalizeda agreement and understanding of same. Critical care attestation.: If time is entered above; I have spent that time in minutes in the direct care of this critically ill patient, excluding procedure time. ED Disposition Clinical Impression: Cervical radiculopathy Disposition: TO HOME OR SELFCARE Is pt being admited?: No Does the pt Need Aspirin: No Condition: Stable Instructions: Cervical Radiculopathy (ED) Prescriptions: predniSONE [Deltasone] 50 mg PO QDAY 5 Days #5 tab methOCARBAMOL [Robaxin TAB] 1,000 mg PO TID #[address] [Voltaren Dr] 75 mg PO TID PRN #60 tablet PRN Reason: Pain , Severe (7-10) Referrals: WILMA VORA MD [Staff Physician] - 3-5 Days REFUGIO SPAULDING MD [Staff Physician] - 3-5 Days Forms: Work/School Release Form(ED) Time of Disposition: 00:52
--- NOTE | 2018-12-24 23:13 | Cat Scan Report ---
PROCEDURE: CT HEAD/BRAIN WO CON TECHNIQUE: Spiral imaging of the brain was obtained without the use of IV contrast. HISTORY: numbness COMPARISONS: Prior CT scan of the brain 06/25/2018 FINDINGS: Brain: Brain density appears normal. No evidence of intracranial hemorrhage. No parenchymal hemorr jaciel, mass lesions or mass effect are seen. No abnormal extra-axial fluid collects or masses are see n. Ventricles: Ventricles are normal size and are midline. Bone Windows: No evidence of skull fracture. Paranasal sinuses: Visualized portions are clear.. Mastoid air cells: Clear. IMPRESSION: Negative exam. This document is electronically signed by Gelacio Rebollar MD., December 24 2018 11:10:45 PM ET
--- NOTE | 2018-12-24 23:37 | Cat Scan Report ---
PROCEDURE: CT CERVICAL SPINE WO CON TECHNIQUE: Computerized tomography of the cervical spine was performed from the skull base to T1 wit hout contrast material. CT DOSE LENGTH PRODUCT: mGycm HISTORY: numbness COMPARISONS: None . FINDINGS: The skull base and foramen magnum are intact. Cervical vertebrae are intact. There is straightening of the cervical spine. There are no fractures o r malalignments. There is narrowing of the disc space at C5-C6 and C6-C7. There is no facet dislocation. Soft tissues are unremarkable. IMPRESSION: No significant abnormality . This document is electronically signed by Freddie Lora MD., December 24 2018 11:34:44 PM ET
== END 2018-12-25 00:59 | disposition home or self-care (01) ==
LOC: ED 17:30
DX: M54.12 Radiculopathy, cervical region (principal); I11.0 Hypertensive heart disease with heart failure; I50.9 Heart failure, unspecified; I25.2 Old myocardial infarction; J44.9 Chronic obstructive pulmonary disease, unspecified; I48.91 Unspecified atrial fibrillation; E11.9 Type 2 diabetes mellitus without complications; F17.200 Nicotine dependence, unspecified, uncomplicated; T82.9XXA Unspecified complication of cardiac and vascular prosthetic device, implant and graft, initial encounter; Z86.73 Personal history of transient ischemic attack (TIA), and cerebral infarction without residual deficits; Z86.711 Personal history of pulmonary embolism; Z95.818 Presence of other cardiac implants and grafts; Z79.899 Other long term (current) drug therapy
CPT/HCPCS: 70450; 72125; 73030; 96372; 99284; J1100

== ENCOUNTER 2019-01-12 19:44 | Observation (INO) | payer OTHER ==
--- NOTE | 2019-01-12 20:14 | Emergency Department Report ---
Blank Doc - Documentation Documentation: 53 y/o with pmh of HTN, CAD, Afib, PE, AICD c/o of chest pain and numbness and tingling to arm. Plan Cardiac Evaluation
[2019-01-12 20:33] LABS: Basophils # (Auto) 0.1 K/mm3 (0.0-0.1); Basophils % (Auto) 0.9 % (0.0-1.8); Eosinophils # (Auto) 0.2 K/mm3 (0.0-0.4); Eosinophils % (Auto) 2.9 % (0.0-4.3); Hematocrit 50.8 % (35.5-45.6); Hemoglobin 17.3 gm/dl (11.8-15.2); Lymphocytes # (Auto) 2.9 K/mm3 (1.2-5.4); Lymphocytes % (Auto) 35.4 % (13.4-35.0); Mean Corpuscular HGB Conc 34 % (32-34); Mean Corpuscular Volume 87 fl (84-94); Monocytes # (Auto) 0.5 K/mm3 (0.0-0.8); Platelet Count 215 K/mm3 (140-440); Red Blood Count 5.87 M/mm3 (3.65-5.03); Red Cell Distribution Width 13.7 % (13.2-15.2)
[2019-01-12 21:06] LABS: Alanine Aminotransferase 46 units/L (7-56); Albumin 3.9 g/dL (3.9-5); BUN/Creatinine Ratio 13; Blood Urea Nitrogen 8 mg/dL (9-20); Calcium 8.8 mg/dL (8.4-10.2); Hemolysis Index 5
[2019-01-12] MEDS ORDERED: ASPIRIN PO ONE (23:28)
[2019-01-12] MEDS ORDERED: NACL 0.9% 1000 ML 1,000 ML IV ONE (23:29)
[2019-01-12] MEDS ORDERED: NITRO-BID 2% TP ONE (23:29)
--- NOTE | 2019-01-12 23:59 | Emergency Department Report ---
ED Chest Pain HPI - General Chief Complaint: Chest Pain Stated Complaint: CHEST PRESSURE,ARM NUMB,PROBLEM BREATHING Time Seen by Provider: 01/12/19 20:12 Source: patient Mode of arrival: Ambulatory Limitations: No Limitations - History of Present Illness Initial Comments: The pt is a 52 YO male with a past medical history significant for reported CAD s/p AMI x 4 (no stents per pt report), AICD in situ, pulmonary embolism, anticoagulated with Xarelto, TIAs, HTN, DM, COPD, tobacco use, ANISHA, former ETOH use and prior LBBB. He is followed by Dr. Winters. He reports that his last AMI was in 12/2017 in [place], [place]. He underwent LHC at that time but was told that his "blockages" were not greater than 80% and thus he did not need PCI. He was found to have "bradycardia and a weak heart" at that time and thus AICD/PPM was implanted. Patient today is complaining of chest pain that started yesterday. Patient states started having chest pain that he describes as a tight sensation with shortness of breath and numbness to the left upper extremity he took 2 nitroglycerin which did help resolve his pain. Nitroglycerin also dropped his blood pressure to systolic of 70 at home. Patient then had chest pain again today which prompted him to come to the emergency department. He is denying any nausea vomiting fevers or chills. Pain is at rest and is currently tight sensation is 8 out of 10 in severity during the history and physical. Severity scale (0 -10): 9 - Related Data Home Medications Medication Instructions Recorded Confirmed Last Taken Insulin Detemir [Levemir VIAL] 60 unit SQ BID 08/10/18 01/10/19 01/10/19 metFORMIN [Glucophage] 500 mg PO BID 08/10/18 01/10/19 01/10/19 Albuterol Sulfate [Ventolin HFA] 2 puff IH Q4H PRN 11/13/18 01/10/19 01/10/19 Aspirin [Aspirin BABY CHEW TAB] 81 mg PO QDAY 11/13/18 01/10/19 01/10/19 AtorvaSTATin [Lipitor] 40 mg PO DAILY 11/13/18 01/10/19 01/10/19 Canagliflozin [Invokana] 150 mg PO DAILY 11/13/18 01/10/19 Unknown Cholecalciferol (Vitamin D3) 50,000 unit PO QWEEK 11/13/18 01/10/19 Unknown [Vitamin D3] Cyclobenzaprine HCl [Flexeril 5 MG 5 mg PO TID 11/13/18 01/10/19 01/10/19 TAB] Fluticasone/Salmeterol [Advair 1 puff IH Q4-6H PRN 11/13/18 01/10/19 Unknown Diskus 250-50 mcg] Furosemide [Lasix TAB] 20 mg PO DAILY 11/13/18 01/10/19 01/10/19 Insulin Aspart [NovoLOG 100 30 units SQ TID 11/13/18 01/10/19 01/10/19 UNITS/ML VIAL] Lisinopril [Zestril TAB] 10 mg PO DAILY 11/13/18 01/10/19 01/10/19 Rivaroxaban [Xarelto] 20 mg PO DAILY 11/13/18 01/10/19 Unknown traZODone [Desyrel] 100 mg PO DAILY 11/13/18 01/10/19 01/10/19 Previous Rx's Medication Instructions Recorded Last Taken Type ISOSORBIDE MONOnitrate [Imdur ER] 60 mg PO QDAY #30 tablet 04/06/18 01/10/19 Rx Nitroglycerin [Nitrostat] 0.4 mg SL .Q5MIN PRN 30 Days #30 05/01/18 08/09/[address] [Keyla Dr] 75 mg PO TID PRN #60 tablet 12/25/18 Unknown Rx Allergies Allergy/AdvReac Type Severity Reaction Status Date / Time No Known Allergies Allergy Verified 08/10/18 15:07 Heart Score - HEART Score History: Moderately suspicious EKG: Non-specific Age: 45-65 Risk factors: > 3 risk factors or hx of atherosclerotic disease Troponin: < normal limit HEART Score: 5 ED Review of Systems ROS: Stated complaint: CHEST PRESSURE,ARM NUMB,PROBLEM BREATHING Other details as noted in HPI Comment: All other systems reviewed and negative ED Past Medical Hx - Past Medical History Hx Hypertension: Yes Hx CVA: Yes (TIA) Hx Heart Attack/AMI: Yes (x 4- no stents) Hx Congestive Heart Failure: Yes Hx Diabetes: Yes Hx Pulmonary Embolism: Yes (x14) Hx Liver Disease: Yes Hx Asthma: No Hx COPD: Yes Additional medical history: sleep apnea. afib. enlarge heart. left bundle branch block - Surgical History Hx Pacemaker: Yes (AICD) Hx Cholecystectomy: Yes Additional Surgical History: cardiac pacemaker/defibrilator. carpal tunel. vasectomy. bilateral contruction of spine - Social History Smoking Status: Current Every Day Smoker Substance Use Type: None - Medications Home Medications: Home Medications Medication Instructions Recorded Confirmed Last Taken Type ISOSORBIDE MONOnitrate [Imdur ER] 60 mg PO QDAY #30 tablet 04/06/18 01/10/19 01/10/19 Rx Nitroglycerin [Nitrostat] 0.4 mg SL .Q5MIN PRN 30 Days #30 05/01/18 01/10/19 08/09/18 Rx tablet Insulin Detemir [Levemir VIAL] 60 unit SQ BID 08/10/18 01/10/19 01/10/19 History metFORMIN [Glucophage] 500 mg PO BID 08/10/18 01/10/19 01/10/19 History Albuterol Sulfate [Ventolin HFA] 2 puff IH Q4H PRN 11/13/18 01/10/19 01/10/19 History Aspirin [Aspirin BABY CHEW TAB] 81 mg PO QDAY 11/13/18 01/10/19 01/10/19 History AtorvaSTATin [Lipitor] 40 mg PO DAILY 11/13/18 01/10/19 01/10/19 History Canagliflozin [Invokana] 150 mg PO DAILY 11/13/18 01/10/19 Unknown History Cholecalciferol (Vitamin D3) 50,000 unit PO QWEEK 11/13/18 01/10/19 Unknown History [Vitamin D3] Cyclobenzaprine HCl [Flexeril 5 MG 5 mg PO TID 11/13/18 01/10/19 01/10/19 History TAB] Fluticasone/Salmeterol [Advair 1 puff IH Q4-6H PRN 11/13/18 01/10/19 Unknown History Diskus 250-50 mcg] Furosemide [Lasix TAB] 20 mg PO DAILY 11/13/18 01/10/19 01/10/19 History Insulin Aspart [NovoLOG 100 30 units SQ TID 11/13/18 01/10/19 01/10/19 History UNITS/ML VIAL] Lisinopril [Zestril TAB] 10 mg PO DAILY 11/13/18 01/10/19 01/10/19 History Rivaroxaban [Xarelto] 20 mg PO DAILY 11/13/18 01/10/19 Unknown History traZODone [Desyrel] 100 mg PO DAILY 11/13/18 01/10/19 01/10/[address] [Voltaren Dr] 75 mg PO TID PRN #60 tablet 12/25/18 01/10/19 Unknown Rx ED Physical Exam - General Limitations: No Limitations General appearance: alert, in no apparent distress - Head Head exam: Present: atraumatic, normocephalic - Eye Eye exam: Present: normal appearance, PERRL, EOMI - ENT ENT exam: Present: mucous membranes moist - Neck Neck exam: Present: normal inspection - Respiratory Respiratory exam: Present: normal lung sounds bilaterally. Absent: respiratory distress, wheezes, rales, rhonchi, stridor, chest wall tenderness - Cardiovascular Cardiovascular Exam: Present: regular rate, normal rhythm, normal heart sounds. Absent: systolic murmur, diastolic murmur, rubs, gallop - GI/Abdominal GI/Abdominal exam: Present: soft, normal bowel sounds. Absent: distended, tenderness, guarding, rebound - Rectal Rectal exam: Present: deferred - Extremities Exam Extremities exam: Present: normal inspection - Back Exam Back exam: Present: normal inspection - Neurological Exam Neurological exam: Present: alert, oriented X3 - Psychiatric Psychiatric exam: Present: normal affect, normal mood - Skin Skin exam: Present: warm, dry, intact, normal color. Absent: rash ED Course Vital Signs 01/12/19 20:03 Temperature 97.3 F L Pulse Rate 83 Respiratory 18 Rate Blood Pressure 173/87 O2 Sat by Pulse 98 Oximetry CEFERINO score - Ceferino Score Age > 65: (0) No Aspirin use within the Past 7 Days: (0) No 3 or more CAD Risk Factors: (1) Yes 2 or more Angina events in past 24 hrs: (1) Yes Known CAD with more than 50% Stenosis: (1) Yes Elevated Cardiac Markers: (0) No ST Deviation Greater than 0.5mm: (0) No CEFERINO Score: 3 ED Medical Decision Making - Lab Data Result diagrams: 01/12/19 20:17 01/12/19 20:17 Lab Results 01/12/19 01/12/19 Range/Units 20:17 20:17 WBC 8.3 (4.5-11.0) K/mm3 RBC 5.87 H (3.65-5.03) M/mm3 Hgb 17.3 H (11.8-15.2) gm/dl Hct 50.8 H (35.5-45.6) % MCV 87 (84-94) fl MCH 30 (28-32) pg MCHC 34 (32-34) % RDW 13.7 (13.2-15.2) % Plt Count 215 (140-440) K/mm3 Lymph % (Auto) 35.4 H (13.4-35.0) % [place] % (Auto) 6.0 (0.0-7.3) % Eos % (Auto) 2.9 (0.0-4.3) % Baso % (Auto) 0.9 (0.0-1.8) % Lymph # 2.9 (1.2-5.4) K/mm3 [place] # 0.5 (0.0-0.8) K/mm3 Eos # 0.2 (0.0-0.4) K/mm3 Baso # 0.1 (0.0-0.1) K/mm3 Seg Neutrophils % 54.8 (40.0-70.0) % Seg Neutrophils # 4.6 (1.8-7.7) K/mm3 Sodium 136 L (137-145) mmol/L Potassium 3.8 (3.6-5.0) mmol/L Chloride 101.6 (98-107) mmol/L Carbon Dioxide 23 (22-30) mmol/L Anion Gap 15 mmol/L BUN 8 L (9-20) mg/dL Creatinine 0.6 L (0.8-1.5) mg/dL Estimated GFR > 60 ml/min BUN/Creatinine Ratio 13 % Glucose 267 H (75-100) mg/dL Calcium 8.8 (8.4-10.2) mg/dL Total Bilirubin 0.50 (0.1-1.2) mg/dL AST 17 (5-40) units/L ALT 46 (7-56) units/L Alkaline Phosphatase 77 (35-129) units/L Troponin T < 0.010 (0.00-0.029) ng/mL Total Protein 6.8 (6.3-8.2) g/dL Albumin 3.9 (3.9-5) g/dL Albumin/Globulin Ratio 1.3 % - EKG Data -: EKG Interpreted by Me (EKG shows sinus rhythm rate 84 axis is normal intervals show prolonged QT. ) - Radiology Data Radiology results: image reviewed (patient with cardiomegaly with no obvious pulmonary vascular congestion or probably edema. No infiltrates present. Patient does have a AICD with intact leads) - Medical Decision Making Patient is a 53-year-old male who is presenting with chest discomfort. Patient has elevated heart score as well as elevated CEFERINO score. Patient was last seen at the hospital in November of this year and had a stress test which was negative for acute ischemia however he does have multiple risk factors and the patient be admitted Obs. Has active chest pain at the time of admission and was given Nitropaste Critical Care Time: Yes (30) Critical care attestation.: If time is entered above; I have spent that time in minutes in the direct care of this critically ill patient, excluding procedure time. ED Disposition Clinical Impression: CAD (coronary artery disease), Unstable angina Disposition: 09 OP ADMIT IP TO THIS HOSP Is pt being admited?: Yes Does the pt Need Aspirin: No Condition: Stable Instructions: Angina (ED) Referrals: DIEUDONNE AQUINO MD [Primary Care Provider] - 3-5 Days Time of Disposition: 00:03
[2019-01-13] MEDS ORDERED: ZOFRAN IV PRN (00:25)
[2019-01-13] MEDS ORDERED: PROVENTIL IH PRN (00:25)
[2019-01-13] MEDS ORDERED: SODIUM CHLORIDE FLUSH SYRINGE 10 ML IV PRN (00:25)
[2019-01-13] MEDS ORDERED: D50W (25GM) Syringe IV PRN (00:25)
[2019-01-13] MEDS ORDERED: TYLENOL PO PRN (00:25)
--- NOTE | 2019-01-13 00:28 | History and Physical Report ---
History of Present Illness Date of examination: 01/13/19 History of present illness: 53-year-old man with history of coronary artery disease, COPD, CHF, hypertension, diabetes, sleep apnea, PE, A. fib, TIA comes to the emergency room with complaints of chest pain located in the epigastric area which he described as a pressure sensation, started 2 days ago, constant, intensity 5/10, no radiation, relieved with 2 nitroglycerin that he took at home . Admits to nausea, shortness of breath, no diaphoresis, palpitation. He had a stress test last month, results reviewed Review of systems Constitutional: no weight loss, chills, fever Ears, eyes, nose, mouth and throat: no nasal congestion, no nasal discharge, no sinus pressure, no vision change, no red eye. Neck: No neck pain or rigidity. Cardiovascular: no palpitations Respiratory: no cough, +shortness of breath Gastrointestinal: no abdominal pain hematochezia Genitourinary : no frequency , no hematuria Musculoskeletal: no joint swelling or muscle ache Integumentary: no rash, no pruritis Neurological: no parathesias, no numbness, no focal weakness Endocrine: no cold or heat intolerance, no polyuria or polydipsia Hematologic/Lymphatic: no easy bruising, no easy bleeding, no gland swelling Allergic/Immunologic: no urticaria, no angioedema. PAST MEDICAL HISTORY: coronary artery disease, COPD, CHF, hypertension, diabetes, sleep apnea, PE, A. fib, TIA PAST SURGICAL HISTORY: Cholecystectomy, AICD, pacemaker, vasectomy, carpal tunnel release, back surgery, right knee surgery SOCIAL HISTORY: No alcohol, no drugs, smokes 1 pack a day FAMILY HISTORY: Hypertension Medications and Allergies Allergies Allergy/AdvReac Type Severity Reaction Status Date / Time No Known Allergies Allergy Verified 08/10/18 15:07 Home Medications Medication Instructions Recorded Confirmed Last Taken Type ISOSORBIDE MONOnitrate [Imdur ER] 60 mg PO QDAY #30 tablet 04/06/18 01/10/19 01/10/19 Rx Nitroglycerin [Nitrostat] 0.4 mg SL .Q5MIN PRN 30 Days #30 05/01/18 01/10/19 08/09/18 Rx tablet Insulin Detemir [Levemir VIAL] 60 unit SQ BID 08/10/18 01/10/19 01/10/19 History metFORMIN [Glucophage] 500 mg PO BID 08/10/18 01/10/19 01/10/19 History Albuterol Sulfate [Ventolin HFA] 2 puff IH Q4H PRN 11/13/18 01/10/19 01/10/19 History Aspirin [Aspirin BABY CHEW TAB] 81 mg PO QDAY 11/13/18 01/10/19 01/10/19 History AtorvaSTATin [Lipitor] 40 mg PO DAILY 11/13/18 01/10/19 01/10/19 History Canagliflozin [Invokana] 150 mg PO DAILY 11/13/18 01/10/19 Unknown History Cholecalciferol (Vitamin D3) 50,000 unit PO QWEEK 11/13/18 01/10/19 Unknown History [Vitamin D3] Cyclobenzaprine HCl [Flexeril 5 MG 5 mg PO TID 11/13/18 01/10/19 01/10/19 History TAB] Fluticasone/Salmeterol [Advair 1 puff IH Q4-6H PRN 11/13/18 01/10/19 Unknown History Diskus 250-50 mcg] Furosemide [Lasix TAB] 20 mg PO DAILY 11/13/18 01/10/19 01/10/19 History Insulin Aspart [NovoLOG 100 30 units SQ TID 11/13/18 01/10/19 01/10/19 History UNITS/ML VIAL] Lisinopril [Zestril TAB] 10 mg PO DAILY 11/13/18 01/10/19 01/10/19 History Rivaroxaban [Xarelto] 20 mg PO DAILY 11/13/18 01/10/19 Unknown History traZODone [Desyrel] 100 mg PO DAILY 11/13/18 01/10/19 01/10/19 History Diclofenac [Keyla Ruvalcaba] 75 mg PO TID PRN #60 tablet 12/25/18 01/10/19 Unknown Rx Active Meds: Active Medications Acetaminophen (Tylenol) 650 mg PO Q4H PRN PRN Reason: Pain MILD(1-3)/Fever >100.5/GARCIA Albuterol (Proventil) 2.5 mg IH Q4HRT PRN PRN Reason: Shortness Of Breath Dextrose (D50w (25gm) Syringe) 50 ml IV PRN PRN PRN Reason: Hypoglycemia Sodium Chloride (Nacl 0.9% 1000 Ml) 1,000 mls @ 999 mls/hr IV BOLUS ONE Stop: 01/13/19 00:29 Insulin Human Lispro (Humalog) 0 unit SUB-Q ACHS PABLO; Protocol Morphine Sulfate (Morphine) 2 mg IV Q4H PRN PRN Reason: Pain, Moderate (4-6) Ondansetron HCl (Zofran) 4 mg IV Q8H PRN PRN Reason: Nausea And Vomiting Sodium Chloride (Sodium Chloride Flush Syringe 10 Ml) 10 ml IV PRN PRN PRN Reason: LINE FLUSH Sodium Chloride (Sodium Chloride Flush Syringe 10 Ml) 10 ml IV BID PABLO Exam - Physical Exam Narrative exam: Gen. appearance: Patient lying in bed, no apparent distress HEENT: Normocephalic, atraumatic, pupils equally round and reactive to light, extraocular movement intact, and no sclericterus,. No JVD or thyromegaly or no dule,neck supple, no carotid bruit ,mucous membranes moist, no exudate or erythema Heart: S1, S2, regular rate and rhythm Lungs: Clear bilaterally, breathing comfortable Abdomen: Positive bowel sounds, non-tender, nondistended, no organomegaly Extremity:no edema cyanosis, clubbing Skin: no rash, dry, warm Neuro: Oriented 3, cranial nerves II-12 intact, speech is fluent, motor and sensory intact - Constitutional Vitals: Temp Pulse Resp BP Pulse Ox 97.3 F L 83 18 173/87 98 01/12/19 20:03 01/12/19 20:03 01/12/19 20:03 01/12/19 20:03 01/12/19 20:03 Results - Labs CBC & Chem 7: 01/13/19 04:00 01/13/19 04:00 Labs: Abnormal lab results 01/12/19 01/12/19 Range/Units 20:17 20:17 RBC 5.87 H (3.65-5.03) M/mm3 Hgb 17.3 H (11.8-15.2) gm/dl Hct 50.8 H (35.5-45.6) % Lymph % (Auto) 35.4 H (13.4-35.0) % Sodium 136 L (137-145) mmol/L BUN 8 L (9-20) mg/dL Creatinine 0.6 L (0.8-1.5) mg/dL Glucose 267 H (75-100) mg/dL - Imaging and Cardiology EKG: image reviewed Chest x-ray: image reviewed Assessment and Plan Assessment Unstable angina Coronary artery disease CHF, stable Hypertension A. fib COPD PE Diabetes TIA Plan Admit to medicine Cardiac enzymes, consult cardiology Iv morphinefor pain, continue appropriate outpatient medications Check fingersticks and initiate insulin sliding scale DVT prophylaxis Follow-up medication reconciliation
[2019-01-13] MEDS ORDERED: ASPIRIN ONE (00:50)
[2019-01-13] MEDS ORDERED: NACL 0.9% 1000 ML 1,000 ML ONE (00:50)
[2019-01-13] MEDS ORDERED: NITRO-BID 2% TP ONE (00:51)
--- NOTE | 2019-01-13 01:04 | XRay Report ---
PROCEDURE: XR CHEST ROUTINE 2V TECHNIQUE: PA and lateral chest HISTORY: Chest Pain COMPARISONS: No priors FINDINGS: Cardial mediastinal silhouette within normal limits. There is a dual-chamber pacemaker in place. No evidence of airspace consolidation or pleural effusions. The pulmonary vasculature is within normal limits. IMPRESSION: No radiographic evidence of acute disease. Dual-chamber pacemaker in place.. This document is electronically signed by Tank Hopkins MD., January 13 2019 01:02:48 AM ET
[2019-01-13] MEDS ORDERED: MORPHINE ONE ×2 (02:07→07:55)
[2019-01-13] MEDS: MORPHINE IV PRN ×4 (02:15→22:08)
[2019-01-13 04:36] LABS: Basophils # (Auto) 0.1 K/mm3 (0.0-0.1); Basophils % (Auto) 0.6 % (0.0-1.8); Eosinophils # (Auto) 0.3 K/mm3 (0.0-0.4); Eosinophils % (Auto) 3.1 % (0.0-4.3); Hematocrit 46.6 % (35.5-45.6); Hemoglobin 15.8 gm/dl (11.8-15.2); Lymphocytes # (Auto) 3.5 K/mm3 (1.2-5.4); Lymphocytes % (Auto) 31.1 % (13.4-35.0); Mean Corpuscular HGB Conc 34 % (32-34); Mean Corpuscular Volume 87 fl (84-94); Monocytes # (Auto) 0.7 K/mm3 (0.0-0.8); Monocytes % (Auto) 6.3 % (0.0-7.3); Platelet Count 208 K/mm3 (140-440); Red Blood Count 5.35 M/mm3 (3.65-5.03); Red Cell Distribution Width 13.8 % (13.2-15.2)
[2019-01-13 04:51] LABS: BUN/Creatinine Ratio 13; Blood Urea Nitrogen 10 mg/dL (9-20); Calcium 8.8 mg/dL (8.4-10.2); Hemolysis Index 50
[2019-01-13] MEDS ORDERED: HumaLOG SUB-Q ONE (07:54)
[2019-01-13] MEDS: HumaLOG SUB-Q SCH ×4 (07:58→22:00)
--- NOTE | 2019-01-13 09:39 | Consultation ---
History of Present Illness Consult date: 01/13/19 Requesting physician: MARIE ALTAMIRANO Consult reason: other ("ua") History of present illness: The pt is a 52 YO male with a past medical history significant for CAD, anomalous RCA, ICMP, AICD in situ, multiple PEs (last one in 2006), AFib, anticoagulated with Xarelto, TIAs, HTN, DM, COPD, tobacco use, ANISHA, former ETOH use. He is followed in our office by Dr. Winters. He presented with complaints of chest pain and elevated BPs since Sunday. He describes his chest pain as an intermittent midsternal pressure which is aggravated by exertion. The pain is associated with nausea and SOB. He denies any palpitations, vomiting, diaphoresis, dizziness or syncope. 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 Lexiscan MPI stress test done 11/14/2018 was negative for active ischemia, EF 30%. Echo 11/14/2018 showed EF 20-25%, global hypokinesis, trace TR, RVSP 25mmHg. Past History Past Medical History: atrial fib, CAD, COPD, diabetes, heart failure, hypertension, pulmonary embolism, other (TIAs; ANISHA) Past Surgical History: Other (AICD) Social history: smoking, alcohol abuse (former) Medications and Allergies Allergies Allergy/AdvReac Type Severity Reaction Status Date / Time No Known Allergies Allergy Verified 08/10/18 15:07 Home Medications Medication Instructions Recorded Confirmed Last Taken Type ISOSORBIDE MONOnitrate [Imdur ER] 60 mg PO QDAY #30 tablet 04/06/18 01/13/19 01/11/19 Rx Nitroglycerin [Nitrostat] 0.4 mg SL .Q5MIN PRN 30 Days #30 05/01/18 01/13/19 01/11/19 Rx tablet Insulin Detemir [Levemir VIAL] 65 unit SQ BID 08/10/18 01/13/19 01/11/19 History metFORMIN [Glucophage] 500 mg PO BID 08/10/18 01/13/1901/11/19 History Albuterol Sulfate [Ventolin HFA] 2 puff IH Q4H PRN 11/13/18 01/13/19 01/11/19 History Aspirin [Aspirin BABY CHEW TAB] 81 mg PO QDAY 11/13/18 01/13/19 01/11/19 History AtorvaSTATin [Lipitor] 40 mg PO DAILY 11/13/18 01/13/19 01/11/19 History Canagliflozin [Invokana] 150 mg PO DAILY 11/13/18 01/13/19 01/11/19 History Cholecalciferol (Vitamin D3) 50,000 unit PO QWEEK 11/13/18 01/13/19 01/05/19 History [Vitamin D3] Cyclobenzaprine HCl [Flexeril 5 MG 5 mg PO TID 11/13/18 01/13/19 01/11/19 History TAB] Fluticasone/Salmeterol [Advair 1 puff IH Q4-6H PRN 11/13/18 01/13/19 01/11/19 History Diskus 250-50 mcg] Furosemide [Lasix TAB] 20 mg PO DAILY 11/13/18 01/13/19 01/11/19 History Insulin Aspart [NovoLOG 100 30 units SQ TID 11/13/18 01/13/19 01/11/19 History UNITS/ML VIAL] Lisinopril [Zestril TAB] 10 mg PO DAILY 11/13/18 01/13/19 01/11/19 History Rivaroxaban [Xarelto] 20 mg PO DAILY 11/13/18 01/13/19 01/11/19 History traZODone [Desyrel] 100 mg PO DAILY 11/13/18 01/13/19 01/11/19 History Diclofenac [Keyla Ruvalcaba] 75 mg PO TID PRN #60 tablet 12/25/18 01/13/19 01/11/19 Rx Exenatide Microspheres [Bydureon] 2 mg SQ QWEEK 01/13/19 01/13/19 01/05/19 History Active Meds: Active Medications Acetaminophen (Tylenol) 650 mg PO Q4H PRN PRN Reason: Pain MILD(1-3)/Fever >100.5/GARCIA Albuterol (Proventil) 2.5 mg IH Q4HRT PRN PRN Reason: Shortness Of Breath Dextrose (D50w (25gm) Syringe) 50 ml IV PRN PRN PRN Reason: Hypoglycemia Insulin Human Lispro (Humalog) 0 unit SUB-Q [facility]; Protocol Last Admin: 01/13/19 07:58 Dose: 3 unit Documented by: Morphine Sulfate (Morphine) 2 mg IV Q4H PRN PRN Reason: Pain, Moderate (4-6) Last Admin: 01/13/19 07:58 Dose: 2 mg Documented by: Ondansetron HCl (Zofran) 4 mg IV Q8H PRN PRN Reason: Nausea And Vomiting Sodium Chloride (Sodium Chloride Flush Syringe 10 Ml) 10 ml IV PRN PRN PRN Reason: LINE FLUSH Sodium Chloride (Sodium Chloride Flush Syringe 10 Ml) 10 ml IV BID [facility] Review of Systems Constitutional: no weight loss, no weight gain, no fever, no chills, no sweats Ears, nose, mouth and throat: no ear pain, no nose pain, no sinus pressure, no sinus pain Cardiovascular: chest pain, shortness of breath, dyspnea on exertion, high blood pressure, decreased exercise tolerance, no orthopnea, no palpitations, no rapid/irregular heart beat, no edema, no syncope, no lightheadedness, no leg edema Respiratory: shortness of breath, dyspnea on exertion, no cough, no congestion, no wheezing, no pain on inspiration Gastrointestinal: nausea, no abdominal pain, no vomiting, no diarrhea, no constipation, no change in bowel habits Genitourinary Male: no dysuria, no hematuria, no flank pain, no discharge, no urinary frequency, no urinary hesitancy Musculoskeletal: no neck stiffness, no neck pain, no shooting arm pain, no arm numbness/tingling, no low back pain, no shooting leg pain Integumentary: no rash, no pruritis, no redness, no sores, no wounds Neurological: no head injury, no paralysis, no weakness, no parathesias, no numbness, no tingling, no seizures, no syncope Psychiatric: no anxiety Endocrine: no cold intolerance, no heat intolerance Hematologic/Lymphatic: no easy bruising, no easy bleeding Allergic/Immunologic: no urticaria, no wheezing Physical Examination Vital Signs Temp Pulse Resp BP Pulse Ox 97.3 F L 83 18 173/87 98 01/12/19 20:03 01/12/19 20:03 01/12/19 20:03 01/12/19 20:03 01/12/19 20:03 General appearance: no acute distress HEENT: Positive: PERRL, Normocephaly, Mucus Membranes Moist Neck: Positive: neck supple, trachea midline Cardiac: Positive: Reg Rate and Rhythm, S1/S2 Lungs: Positive: Decreased Breath Sounds Neuro: Positive: Grossly Intact Abdomen: Positive: Soft. Negative: Tender Skin: Negative: Rash, Wound Musculoskeletal: No Pain Extremities: Absent: edema Results 01/13/19 04:00 01/13/19 04:00 Cardiac Enzymes 01/12/19 Range/Units 20:17 AST 17 (5-40) units/L CBC 01/12/19 01/13/19 Range/Units 20:17 04:00 WBC 8.3 11.2 H (4.5-11.0) K/mm3 RBC 5.87 H 5.35 H (3.65-5.03) M/mm3 Hgb 17.3 H 15.8 H (11.8-15.2) gm/dl Hct 50.8 H 46.6 H (35.5-45.6) % Plt Count 215 208 (140-440) K/mm3 Lymph # 2.9 3.5 (1.2-5.4) K/mm3 [place] # 0.5 0.7 (0.0-0.8) K/mm3 Eos # 0.2 0.3 (0.0-0.4) K/mm3 Baso # 0.1 0.1 (0.0-0.1) K/mm3 Comprehensive Metabolic Panel 01/12/19 01/13/19 Range/Units 20:17 04:00 Sodium 136 L 140 (137-145) mmol/L Potassium 3.8 4.1 (3.6-5.0) mmol/L Chloride 101.6 102.4 (98-107) mmol/L Carbon Dioxide 23 27 (22-30) mmol/L BUN 8 L 10 (9-20) mg/dL Creatinine 0.6 L 0.8 (0.8-1.5) mg/dL Glucose 267 H 185 H (75-100) mg/dL Calcium 8.8 8.8 (8.4-10.2) mg/dL AST 17 (5-40) units/L ALT 46 (7-56) units/L Alkaline Phosphatase 77 (35-129) units/L Total Protein 6.8 (6.3-8.2) g/dL Albumin 3.9 (3.9-5) g/dL - Imaging and Cardiology Echo: report reviewed ( 11/14/2018 showed EF 20-25%, global hypokinesis, trace TR, RVSP 25mmHg. 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 ) EKG: report reviewed, image reviewed EKG interpretations - Telemetry EKG Rhythm: Sinus Rhythm - EKG Sinus rhythms and dysrhythmias: sinus rhythm AV and intraventricular conduction: left bundle branch block Assessment and Plan pt presents with recurrent chest pain. 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 Lexiscan MPI stress test done 11/14/2018 was negative for active ischemia, EF 30%. AMI ruled out. Coronary angiography recommended for definitive diagnosis. Indications, potential risks and benefits of LHC reviewed with pt and he is agreeable to proceed with LHC in AM. NPO after MN. Pt anticoagulated with Xarelto at home. He was planned for OP colonoscopy tomorrow and thus has not taken Xarelto in 5 days. Initiate heparin gtt pending cardiac cath. Resume all other home cardiac medications. The patient has been seen in conjunction with Dr. Milian who agrees with the assessment and plan of care. - Patient Problems (1) Chest pain Current Visit: Yes Status: Acute (2) CAD (coronary artery disease) Current Visit: Yes Status: Chronic Qualifiers: (3) Ischemic cardiomyopathy Current Visit: Yes Status: Chronic (4) Automatic implantable cardioverter-defibrillator in situ Current Visit: Yes Status: Chronic (5) HTN (hypertension) Current Visit: Yes Status: Chronic (6) HLD (hyperlipidemia) Current Visit: Yes Status: Chronic Qualifiers: Hyperlipidemia type: mixed hyperlipidemia Qualified Code(s): E78.2 - Mixed hyperlipidemia (7) Diabetes Current Visit: Yes Status: Chronic (8) COPD (chronic obstructive pulmonary disease) Current Visit: Yes Status: Chronic Qualifiers: COPD type: unspecified COPD Qualified Code(s): J44.9 - Chronic obstructive pulmonary disease, unspecified (9) Tobacco abuse Current Visit: Yes Status: Chronic (10) History of pulmonary embolism Current Visit: Yes Status: Chronic (11) Atrial fibrillation Current Visit: Yes Status: Acute (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
[2019-01-13] MEDS ORDERED: ZESTRIL PO SCH (12:00)
[2019-01-13] MEDS ORDERED: LASIX PO SCH (12:00)
[2019-01-13] MEDS ORDERED: HEPARIN/ 0.45% NACL-25,000 UNIT/500 ML 25,000 UNIT/500 ML BAG IV SCH (12:00)
[2019-01-13] MEDS ORDERED: IMDUR PO SCH (12:00)
[2019-01-13] MEDS ORDERED: NACL 0.9% 500 ML 500 ML IV SCH (12:00)
[2019-01-13 12:30] LABS: INR 0.92 (0.87-1.13)
[2019-01-13 12:32] LABS: Partial Thromboplastin Time 27.3 Sec. (24.2-36.6)
[2019-01-13 12:34] LABS: Hematocrit 44.5 % (35.5-45.6); Hemoglobin 15.5 gm/dl (11.8-15.2)
[2019-01-13] MEDS: SODIUM CHLORIDE FLUSH SYRINGE 10 ML IV SCH ×2 (14:35→22:00)
--- NOTE | 2019-01-13 17:18 | Event Note ---
Date: 01/13/19 53-year-old male patient was admitted early this morning with chest pain Patient had recent abnormal stress test, cardiology evaluated the patient Recommend left heart catheterization tomorrow Patient denies any chest pain or shortness of breath Vital signs reviewed Agree with the current management, follow heart cath tomorrow Stable possible discharge in 1-2 days Plan of care reviewed with the patient and his nurse
[2019-01-13] MEDS ORDERED: COREG PO SCH (22:00)
[2019-01-14] MEDS ORDERED: NACL 0.9% 500 ML 500 ML IV SCH (06:00)
[2019-01-14 06:03] LABS: Basophils # (Auto) 0.1 K/mm3 (0.0-0.1); Basophils % (Auto) 0.7 % (0.0-1.8); Eosinophils # (Auto) 0.3 K/mm3 (0.0-0.4); Eosinophils % (Auto) 3.2 % (0.0-4.3); Hematocrit 44.8 % (35.5-45.6); Hemoglobin 15.4 gm/dl (11.8-15.2); Lymphocytes # (Auto) 2.8 K/mm3 (1.2-5.4); Lymphocytes % (Auto) 33.5 % (13.4-35.0); Mean Corpuscular HGB Conc 34 % (32-34); Mean Corpuscular Volume 87 fl (84-94); Monocytes # (Auto) 0.5 K/mm3 (0.0-0.8); Platelet Count 188 K/mm3 (140-440); Red Blood Count 5.14 M/mm3 (3.65-5.03); Red Cell Distribution Width 13.9 % (13.2-15.2)
[2019-01-14 06:05] LABS: INR 0.89 (0.87-1.13)
[2019-01-14 06:18] LABS: BUN/Creatinine Ratio 16; Blood Urea Nitrogen 11 mg/dL (9-20); Hemolysis Index 9
[2019-01-14] MEDS ORDERED: ECOTRIN PO ONE (09:00)
[2019-01-14] MEDS ORDERED: ASPIRIN PO SCH (10:00)
[2019-01-14] MEDS ORDERED: CALAN ONE (10:13)
[2019-01-14] MEDS ORDERED: NITROGLYCERIN SYRINGE 0 ML ONE (10:13)
[2019-01-14] MEDS ORDERED: HEPARIN/NS 5000 UNIT/500ML(CATH LAB) 1,000 ML IR ONE (10:13)
[2019-01-14] MEDS: VERSED ONE ×2 (10:39→10:49)
[2019-01-14] MEDS: SUBLIMAZE ONE ×2 (10:39→10:49)
[2019-01-14] MEDS: HEPARIN 10,000 UNITS/10 ML ONE ×2 (10:40→11:07)
[2019-01-14] MEDS: XYLOCAINE 2% INFILTRATI ONE ×3 (10:44→10:54)
[2019-01-14] MEDS ORDERED: NACL 0.9% 100 ML ONE (11:10)
--- NOTE | 2019-01-14 11:27 | Progress Note ---
Assessment and Plan S/p LHC this AM which showed nonobstructive CAD. Cont medical management. Chest pain currently resolved. Currently stable cardiac status. Pt may discharge home from cardiology standpoint this afternoon following completion of post-cath order set. Pt may resume Xarelto tomorrow AM, 01/15/2019. Recommend follow up in our office with Dr. Winters within 1-2 weeks of hospital discharge ([phone]). The patient has been seen in conjunction with Dr. Milian who agrees with the assessment and plan of care. - Patient Problems (1) Chest pain Current Visit: Yes Status: Acute (2) CAD (coronary artery disease) Current Visit: Yes Status: Chronic Qualifiers: (3) Ischemic cardiomyopathy Current Visit: Yes Status: Chronic (4) Automatic implantable cardioverter-defibrillator in situ Current Visit: Yes Status: Chronic (5) HTN (hypertension) Current Visit: Yes Status: Chronic (6) HLD (hyperlipidemia) Current Visit: Yes Status: Chronic Qualifiers: Hyperlipidemia type: mixed hyperlipidemia Qualified Code(s): E78.2 - Mixed hyperlipidemia (7) Diabetes Current Visit: Yes Status: Chronic (8) COPD (chronic obstructive pulmonary disease) Current Visit: Yes Status: Chronic Qualifiers: COPD type: unspecified COPD Qualified Code(s): J44.9 - Chronic obstructive pulmonary disease, unspecified (9) Tobacco abuse Current Visit: Yes Status: Chronic (10) History of pulmonary embolism Current Visit: Yes Status: Chronic (11) Atrial fibrillation Current Visit: Yes Status: Acute (12) halfway current use of anticoagulant therapy Current Visit: Yes Status: Chronic (13) History of TIAs Current Visit: Yes Status: Chronic (14) Sleep apnea Current Visit: Yes Status: Chronic Subjective Date of service: 01/14/19 Principal diagnosis: cp Interval history: pt for [facility] today. no current cardiac complaints. Objective Last Vital Signs Temp 98.0 F 01/14/19 04:49 Pulse 80 01/14/19 04:49 Resp 20 01/14/19 04:49 BP 100/58 01/14/19 04:49 Pulse Ox 95 01/14/19 04:49 - Physical Examination General: No Apparent Distress HEENT: Positive: PERRL, Normocephaly, Mucus Membranes Moist Neck: Positive: neck supple, trachea midline Cardiac: Positive: Reg Rate and Rhythm, S1/S2 Lungs: Positive: clear to auscultation Neuro: Positive: Grossly Intact Abdomen: Positive: Soft. Negative: Tender Skin: Negative: Rash, Wound Musculoskeletal: No Pain Extremities: Absent: edema - Labs and Meds Coagulation 01/13/19 01/14/19 Range/Units 11:51 05:08 PT 12.9 12.6 (12.2-14.9) Sec. INR 0.92 0.89 (0.87-1.13) APTT 27.3 (24.2-36.6) Sec. CBC 01/13/19 01/14/19 Range/Units 11:51 05:08 WBC 8.5 (4.5-11.0) K/mm3 RBC 5.14 H (3.65-5.03) M/mm3 Hgb 15.5 H 15.4 H (11.8-15.2) gm/dl Hct 44.5 44.8 (35.5-45.6) % Plt Count 191 188 (140-440) K/mm3 Lymph # 2.8 (1.2-5.4) K/mm3 [place] # 0.5 (0.0-0.8) K/mm3 Eos # 0.3 (0.0-0.4) K/mm3 Baso # 0.1 (0.0-0.1) K/mm3 Comprehensive Metabolic Panel 01/14/19 Range/Units 05:08 Sodium 139 (137-145) mmol/L Potassium 3.7 (3.6-5.0) mmol/L Chloride 102.5 (98-107) mmol/L Carbon Dioxide 25 (22-30) mmol/L BUN 11 (9-20) mg/dL Creatinine 0.7 L (0.8-1.5) mg/dL Glucose 145 H (75-100) mg/dL Calcium 9.0 (8.4-10.2) mg/dL - Imaging and Cardiology EKG: report reviewed, image reviewed Echo: report reviewed ( 11/14/2018 showed EF 20-25%, global hypokinesis, trace TR, RVSP 25mmHg. 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 ) - EKG Sinus rhythms and dysrhythmias: sinus rhythm AV and intraventricular conduction: left bundle branch block
--- NOTE | 2019-01-14 12:33 | Discharge Summary ---
Providers - Providers Date of Admission: 01/13/19 00:03 Date of discharge: 01/14/19 Attending physician: SURAJ JESUS 01/13/19 00:25 Consult to Physician [CONS] Routine Comment: Consulting Provider: DEMI NANCE Physician Instructions: Reason For Exam: ua 01/14/19 11:31 Consult to Cardiac Rehabilitation [CONS] Routine Reason For Exam: Cardiac Rehab Evaluation Primary care physician: [facility], Hospitalization Reason for admission: chest pain Condition: Stable Pertinent studies: CXR,Heart cath Procedures: S/p LHC this AM which showed nonobstructive CAD. Cont medical management. Hospital course: 52 YO male with a past medical history significant for CAD, anomalous RCA, ICMP, AICD in situ, multiple PEs (last one in 2006), AFib, anticoagulated with Xarelto, TIAs, HTN, DM, COPD, tobacco use, ANISHA, former ETOH use was admitted with chest pain and elevated BPs . patient was symptomatically managed,evaluated by cardiology,had Lt heart cath, nonobstructive coronaries. medications optimised .Today pt is comfortable,no new complaints. vital signs are stable,physical exam is unremarkable. Cleared by cardiology for discharge and f/u out pt upon discharge. Discharge Diagnosi --Chest pain: non cardiac,s/p cath,nonobstructive coronaries continue current management --Chronic systolic CHF : EF 20-25%, cont antifailure meds --S/P AICD : stable --Hypertension:well controlled --Dyslipidemia: on statin. --Type 2 DM: stable, accu ck,SSC and insulin as needed,ADA diet --Afib: rate controlled: cont beta blockers, cardiology following --Chronic anticoagulation on Xeralto Patient is stable at discharge Disposition: DC-01 TO HOME OR SELFCARE Time spent for discharge: 32 min Core Measure Documentation - Palliative Care Palliative Care/ Comfort Measures: Not Applicable - Core Measures Any of the following diagnoses?: heart failure - Heart Failure Discharge Requirements CATALINA/ARB for LVSD if EF <40%: Yes Beta heiid at discharge: Yes Exam - Constitutional Vitals: Temp Pulse Resp BP Pulse Ox 97.7 F 70 20 110/62 92 01/14/19 11:55 01/14/19 12:15 01/14/19 12:15 01/14/19 12:15 01/14/19 12:15 General appearance: Present: no acute distress, well-nourished - EENT Eyes: Present: PERRL, EOM intact - Neck Neck: Present: supple, normal ROM - Respiratory Respiratory effort: normal Respiratory: bilateral: diminished, negative: rales, rhonchi, wheezing - Cardiovascular Rhythm: regular Heart Sounds: Present: S1 & S2 - Extremities Extremities: no ischemia, No edema - Abdominal General gastrointestinal: Present: soft, non-tender, non-distended, normal bowel sounds - Integumentary Integumentary: Present: clear, warm - Musculoskeletal Musculoskeletal: strength equal bilaterally - Psychiatric Psychiatric: appropriate mood/affect, cooperative - Neurologic Neurologic: CNII-XII intact, moves all extremities Plan Activity: advance as tolerated Diet: diabetic, other (cardiac diet) Additional Instructions: Resume Xeralto from tomorrow[01/15/2019]. Resume metformin after 48 hours of Cath procedure [resume from 01/16/2019 evening dose]. If you have chest pain or shortness of breath contact M.D. or go to emergency room Follow up with: DIEUDONNE AQUINO MD [Primary Care Provider] - 3-5 Days DEMI NANCE MD [Staff Physician] - 14 Days Forms: CardCath PCI D/C Instructions Prescriptions: Carvedilol [Coreg] 12.5 mg PO BID #60 tablet Rivaroxaban [Xarelto] 20 mg PO QDAY #30 tab
[2019-01-14 16:01] VITALS: BP 124/73
[2019-01-15] MEDS ORDERED: BABY ASPIRIN PO SCH (10:00)
== END 2019-01-14 16:54 | disposition home or self-care (01) ==
LOC: ED 19:44 → 4A 01-13 00:03
PROVIDERS: ADMIT Internal Medicine; ATTEND Internal Medicine
DX: I25.110 Atherosclerotic heart disease of native coronary artery with unstable angina pectoris (principal); I11.0 Hypertensive heart disease with heart failure; I50.9 Heart failure, unspecified; I48.91 Unspecified atrial fibrillation; J44.9 Chronic obstructive pulmonary disease, unspecified; I26.99 Other pulmonary embolism without acute cor pulmonale; E11.9 Type 2 diabetes mellitus without complications; F17.210 Nicotine dependence, cigarettes, uncomplicated; Z90.49 Acquired absence of other specified parts of digestive tract; Z95.810 Presence of automatic (implantable) cardiac defibrillator; Z98.52 Vasectomy status; Z98.890 Other specified postprocedural states; Z86.73 Personal history of transient ischemic attack (TIA), and cerebral infarction without residual deficits
CPT/HCPCS: 36415; 71046; 76937; 80048; 80053; 82962; 84484; 85014; 85018; 85025; 85049; 85347; 85520; 85610; 85730; 93005; 93010; 93458; 93571; 96372; 96374; 96376; 99291; A9270; C1769; C1894; G0378; J0153; J1644; J2250; J2270; J3010; J7030; J7040; J1815; Q9967

== ENCOUNTER 2019-02-11 17:17 | Emergency (ER) | payer OTHER ==
--- NOTE | 2019-02-11 19:19 | Emergency Department Report ---
Chief Complaint: Abdominal Pain Stated Complaint: ABD PAIN/NO BOWEL MOVEMENT Time Seen by Provider: 02/11/19 19:18 - HPI History of Present Illness: ABD PAIN RLQ PAIN COLONOSCOPY 2 AGO CANCELLED- NOW FEBRUARY OR MARCH NO BM IN 5 DAYS SEE MED LIST SEE PMH PMH DM HTN MSE COMPLETED MSE screening note: Focused history and physical exam performed. Due to findings the following was ordered: ED Disposition for MSE Condition: Stable
[2019-02-11 19:24] VITALS: BP 165/105
[2019-02-11 20:00] LABS: Basophils # (Auto) 0.1 K/mm3 (0.0-0.1); Basophils % (Auto) 0.6 % (0.0-1.8); Eosinophils # (Auto) 0.2 K/mm3 (0.0-0.4); Eosinophils % (Auto) 1.6 % (0.0-4.3); Hematocrit 49.9 % (35.5-45.6); Hemoglobin 17.6 gm/dl (11.8-15.2); Lymphocytes # (Auto) 3.3 K/mm3 (1.2-5.4); Lymphocytes % (Auto) 25.1 % (13.4-35.0); Mean Corpuscular HGB Conc 35 % (32-34); Mean Corpuscular Volume 86 fl (84-94); Monocytes # (Auto) 0.8 K/mm3 (0.0-0.8); Monocytes % (Auto) 5.7 % (0.0-7.3); Platelet Count 244 K/mm3 (140-440); Red Blood Count 5.81 M/mm3 (3.65-5.03); Red Cell Distribution Width 13.8 % (13.2-15.2)
[2019-02-11 20:23] LABS: Alanine Aminotransferase 43 units/L (7-56); BUN/Creatinine Ratio 9; Blood Urea Nitrogen 7 mg/dL (9-20); Calcium 9.3 mg/dL (8.4-10.2); Hemolysis Index 21
[2019-02-11 20:24] LABS: Bilirubin,Direct < 0.2 mg/dL (0-0.2)
[2019-02-11 20:36] LABS: Bilirubin,Urine NEG (Negative); Blood,Urine NEG (Negative); Color,Urine Yellow (Yellow); Mucus,Urine FEW /HPF; Protein,Urine <15 mg/dL mg/dL (Negative); Urobilinogen,Urine < 2.0 mg/dL (<2.0)
--- NOTE | 2019-02-11 20:56 | XRay Report ---
PROCEDURE: XR ABD SERIES W CXR 1V TECHNIQUE: Abdominal series complete, including supine and upright AP views of the abdomen and front al chest. HISTORY: ABD PAIN COMPARISONS: 11/13/2018 . FINDINGS: Heart: Normal. Mediastinum/Vessels: Normal. Lungs/Pleural space: Normal. A bipolar cardiac device is noted on the left side with its leads in place. Bowel gas pattern: Mild degree of residual stool is noted in the colon and rectum. Otherwise intesti nal gas pattern is nonspecific. . Masses or calcifications: None . Bony structures: No acute osseous abnormality . Other: No free intraperitoneal air . IMPRESSION: No acute abnormality. This document is electronically signed by Waylon Martinez MD., Feb 11 2019 08:54:09 PM ET
[2019-02-11] MEDS ORDERED: NACL 0.9% 1000 ML 1,000 ML IV ONE (22:41)
[2019-02-11] MEDS ORDERED: ZOFRAN IV STA (22:41)
--- NOTE | 2019-02-12 00:31 | Cat Scan Report ---
PROCEDURE: CT ABDOMEN PELVIS W CON TECHNIQUE: Computerized axial tomography of the abdomen and pelvis was performed after the IV inject ion of iodinated nonionic contrast. CT DOSE LENGTH PRODUCT: mGycm HISTORY: Lower ABD Pain strong diverticulitis hx COMPARISONS: None . FINDINGS: Visualized lower thorax: No significant abnormality. Liver: There is fatty infiltration of the liver with mild enlargement. There is no mass.. Spleen: Normal size and attenuation. Gallbladder and biliary system: There has been a cholecystectomy. The bile ducts are normal in calibe r.. Pancreas: Normal. Adrenals: Normal. Kidneys: There is right perinephric induration which is nonspecific. There are no kidney stones. Ther e is no hydronephrosis. Urinary tract infection not excluded. Clinical correlation suggested.. GI tract: There is diverticulosis of the sigmoid and left colon. There is no diverticulitis or colit is, obstruction or mass. The appendix is normal. The stomach and small bowel are normal. . Lymph nodes and mesentery: Normal. Vasculature: Normal.. Bladder: Normal. Reproductive organs: Normal. Peritoneum: There is no ascites or free air, abscess or adenopathy.. Musculoskeletal structures: There has been lower back surgery.. IMPRESSION: There is fatty infiltration of the liver with mild enlargement. There is no mass. There has been a cholecystectomy. The bile ducts are normal in caliber. There is right perinephric induration which is nonspecific. There are no kidney stones. There is no h ydronephrosis. Urinary tract infection not excluded. Clinical correlation suggested. There is diverticulosis of the sigmoid and left colon. There is no diverticulitis or colitis, obstruc tion or mass. The appendix is normal. The stomach and small bowel are normal. There is no ascites or free air, abscess or adenopathy. This document is electronically signed by Freddie Lora MD., Feb 12 2019 12:29:37 AM ET
--- NOTE | 2019-02-12 01:22 | Emergency Department Report ---
ED Abdominal Pain HPI - General Chief Complaint: Abdominal Pain Stated Complaint: ABD PAIN/NO BOWEL MOVEMENT Time Seen by Provider: 02/11/19 19:18 Source: patient Mode of arrival: Ambulatory Limitations: No Limitations - History of Present Illness Initial Comments: 53-year-old male has a history of diabetes, hypertension, CAD, COPD, liver disease presents to emergency department complaining of lower abdominal pain for the last 2 days associated with some nausea but no vomiting and didn't hadn't had a normal bowel movement for the last 5 days reports being constipated. She has history of diverticulitis and this exacerbation feels the same as it did when he had that flare up. MD Complaint: abdominal pain -: days(s) (1) Location: LLQ, RLQ Radiation: none, LLQ, RLQ Migration to: no migration Severity: mild Consistency: constant Improves With: nothing Worsens With: nothing Associated Symptoms: denies other symptoms. denies: vomiting, diarrhea, dysuria, hematemesis, hematochezia - Related Data Home Medications Medication Instructions Recorded Confirmed Last Taken Insulin Detemir [Levemir VIAL] 65 unit SQ BID 08/10/18 01/13/19 01/11/19 Albuterol Sulfate [Ventolin HFA] 2 puff IH Q4H PRN 11/13/18 01/13/19 01/11/19 Aspirin [Aspirin BABY CHEW TAB] 81 mg PO QDAY 11/13/18 01/13/19 01/11/19 AtorvaSTATin [Lipitor] 40 mg PO DAILY 11/13/18 01/13/19 01/11/19 Canagliflozin [Invokana] 150 mg PO DAILY 11/13/18 01/13/19 01/11/19 Cholecalciferol (Vitamin D3) 50,000 unit PO QWEEK 11/13/18 01/13/19 01/05/19 [Vitamin D3] Fluticasone/Salmeterol [Advair 1 puff IH Q4-6H PRN 11/13/18 01/13/19 01/11/19 Diskus 250-50 mcg] Furosemide [Lasix TAB] 20 mg PO DAILY 11/13/18 01/13/19 01/11/19 Insulin Aspart [NovoLOG 100 30 units SQ TID 11/13/18 01/13/19 01/11/19 UNITS/ML VIAL] Lisinopril [Zestril TAB] 10 mg PO DAILY 11/13/18 01/13/19 01/11/19 traZODone [Desyrel] 100 mg PO DAILY 11/13/18 01/13/19 01/11/19 Exenatide Microspheres [Bydureon] 2 mg SQ QWEEK 01/13/19 01/13/19 01/05/19 Previous Rx's Medication Instructions Recorded Last Taken Type ISOSORBIDE MONOnitrate [Imdur ER] 60 mg PO QDAY #30 tablet 04/06/18 01/11/19 Rx Nitroglycerin [Nitrostat] 0.4 mg SL .Q5MIN PRN 30 Days #30 05/01/18 01/11/19 Rx tablet Carvedilol [Coreg] 12.5 mg PO BID #60 tablet 01/14/19 Unknown Rx Rivaroxaban [Xarelto] 20 mg PO QDAY #30 tab 01/14/19 Unknown Rx Hyoscyamine Subl [Levsin Sl] 0.125 mg SL Q4HR PRN #16 tablet 02/12/19 Unknown Rx Lactulose [Cephulac] 20 gm PO Q6HR #240 ml 02/12/19 Unknown Rx Ondansetron [Zofran ODT TAB] 8 mg PO Q12HR #14 tab.rapdis 02/12/19 Unknown Rx Allergies Allergy/AdvReac Type Severity Reaction Status Date / Time No Known Allergies Allergy Verified 02/11/19 17:21 ED Review of Systems ROS: Stated complaint: ABD PAIN/NO BOWEL MOVEMENT Other details as noted in HPI Constitutional: denies: chills, fever Eyes: denies: eye pain, eye discharge, vision change ENT: denies: ear pain, throat pain Respiratory: denies: cough, shortness of breath, SOB with exertion, wheezing Cardiovascular: denies: chest pain, palpitations, dyspnea on exertion Endocrine: no symptoms reported. denies: see HPI, intolerance to cold, intolerance to heat Gastrointestinal: denies: abdominal pain, nausea, diarrhea Genitourinary: denies: urgency, dysuria Musculoskeletal: denies: back pain, joint swelling, arthralgia Skin: denies: rash, lesions Neurological: denies: headache, weakness, paresthesias Psychiatric: denies: anxiety, depression Hematological/Lymphatic: denies: easy bleeding, easy bruising ED Past Medical Hx - Past Medical History Hx Hypertension: Yes Hx CVA: Yes (TIA) Hx Heart Attack/AMI: Yes (x 4- no stents) Hx Congestive Heart Failure: Yes Hx Diabetes: Yes Hx Pulmonary Embolism: Yes (x14) Hx Liver Disease: Yes Hx Asthma: No Hx COPD: Yes Additional medical history: sleep apnea. afib. enlarge heart. left bundle branch block - Surgical History Hx Pacemaker: Yes Hx Internal Defibrillator: Yes Hx Cholecystectomy: Yes Additional Surgical History: cardiac pacemaker/defibrilator. carpal tunel. vasectomy. bilateral contruction of spine - Social History Smoking Status: Current Every Day Smoker Substance Use Type: None - Medications Home Medications: Home Medications Medication Instructions Recorded Confirmed Last Taken Type ISOSORBIDE MONOnitrate [Imdur ER] 60 mg PO QDAY #30 tablet 04/06/18 01/13/19 01/11/19 Rx Nitroglycerin [Nitrostat] 0.4 mg SL .Q5MIN PRN 30 Days #30 05/01/18 01/13/19 01/11/19 Rx tablet Insulin Detemir [Levemir VIAL] 65 unit SQ BID 08/10/18 01/13/19 01/11/19 History Albuterol Sulfate [Ventolin HFA] 2 puff IH Q4H PRN 11/13/18 01/13/19 01/11/19 History Aspirin [Aspirin BABY CHEW TAB] 81 mg PO QDAY 11/13/18 01/13/19 01/11/19 History AtorvaSTATin [Lipitor] 40 mg PO DAILY 11/13/18 01/13/19 01/11/19 History Canagliflozin [Invokana] 150 mg PO DAILY 11/13/18 01/13/19 01/11/19 History Cholecalciferol (Vitamin D3) 50,000 unit PO QWEEK 11/13/18 01/13/19 01/05/19 History [Vitamin D3] Fluticasone/Salmeterol [Advair 1 puff IH Q4-6H PRN 11/13/18 01/13/19 01/11/19 History Diskus 250-50 mcg] Furosemide [Lasix TAB] 20 mg PO DAILY 11/13/18 01/13/19 01/11/19 History Insulin Aspart [NovoLOG 100 30 units SQ TID 11/13/18 01/13/19 01/11/19 History UNITS/ML VIAL] Lisinopril [Zestril TAB] 10 mg PO DAILY 11/13/18 01/13/19 01/11/19 History traZODone [Desyrel] 100 mg PO DAILY 11/13/18 01/13/19 01/11/19 History Exenatide Microspheres [Bydureon] 2 mg SQ QWEEK 01/13/19 01/13/19 01/05/19 History Carvedilol [Coreg] 12.5 mg PO BID #60 tablet 01/14/19 Unknown Rx Rivaroxaban [Xarelto] 20 mg PO QDAY #30 tab 01/14/19 Unknown Rx Hyoscyamine Subl [Levsin Sl] 0.125 mg SL Q4HR PRN #16 tablet 02/12/19 Unknown Rx Lactulose [Cephulac] 20 gm PO Q6HR #240 ml 02/12/19 Unknown Rx Ondansetron [Zofran ODT TAB] 8 mg PO Q12HR #14 tab.rapdis 02/12/19 Unknown Rx ED Physical Exam - General Limitations: No Limitations General appearance: alert, in no apparent distress - Head Head exam: Present: atraumatic, normocephalic, normal inspection - Eye Eye exam: Present: normal appearance, PERRL, EOMI. Absent: scleral icterus, conjunctival injection, nystagmus - ENT ENT exam: Present: mucous membranes moist - Neck Neck exam: Present: normal inspection - Respiratory Respiratory exam: Present: normal lung sounds bilaterally. Absent: respiratory distress, wheezes, rales, rhonchi, chest wall tenderness - Cardiovascular Cardiovascular Exam: Present: regular rate, normal rhythm, normal heart sounds. Absent: bradycardia, tachycardia, systolic murmur, diastolic murmur, rubs, gallop - GI/Abdominal GI/Abdominal exam: Present: soft, tenderness (lower abdomen), normal bowel sounds. Absent: distended, guarding, rebound, diminished bowel sounds, hyperactive bowel sounds, hypoactive bowel sounds, organomegaly, bruit, pulsatile mass, hernia - Rectal Rectal exam: Present: deferred - Extremities Exam Extremities exam: Present: normal inspection, full ROM, normal capillary refill. Absent: pedal edema, joint swelling - Back Exam Back exam: Present: normal inspection. Absent: CVA tenderness (R), CVA tenderness (L) - Neurological Exam Neurological exam: Present: alert, oriented X3, CN II-XII intact, normal gait, motor sensory deficit. Absent: abnormal gait, reflexes normal - Psychiatric Psychiatric exam: Present: normal affect, normal mood - Skin Skin exam: Present: warm, dry, intact, normal color. Absent: rash ED Course Vital Signs 02/11/19 19:22 Temperature 98.2 F Pulse Rate 103 H Respiratory 18 Rate Blood Pressure 165/105 O2 Sat by Pulse 96 Oximetry ED Medical Decision Making - Lab Data Result diagrams: 02/11/19 19:27 02/11/19 19:27 Critical care attestation.: If time is entered above; I have spent that time in minutes in the direct care of this critically ill patient, excluding procedure time. ED Disposition Clinical Impression: Abdominal pain, Constipation Disposition: DC-01 TO HOME OR SELFCARE Is pt being admited?: No Does the pt Need Aspirin: No Condition: Stable Instructions: Abdominal Pain (ED) Prescriptions: Lactulose [Cephulac] 20 gm PO Q6HR #240 ml Hyoscyamine Subl [Levsin Sl] 0.125 mg SL Q4HR PRN #16 tablet PRN Reason: Spasms Ondansetron [Zofran ODT TAB] 8 mg PO Q12HR #14 tab.rapdis Referrals: REFUGIO SPAULDING MD [Primary Care Provider] - 3-5 Days [facility] [Provider Group] - 3-5 Days
== END 2019-02-12 04:10 | disposition home or self-care (01) ==
LOC: ED 17:17
DX: K59.00 Constipation, unspecified (principal); E11.9 Type 2 diabetes mellitus without complications; I11.0 Hypertensive heart disease with heart failure; I50.9 Heart failure, unspecified; J44.9 Chronic obstructive pulmonary disease, unspecified; F17.200 Nicotine dependence, unspecified, uncomplicated; G47.30 Sleep apnea, unspecified; Z79.4 Long term (current) use of insulin; Z79.82 Long term (current) use of aspirin; Z86.73 Personal history of transient ischemic attack (TIA), and cerebral infarction without residual deficits; Z90.49 Acquired absence of other specified parts of digestive tract; Z95.0 Presence of cardiac pacemaker
CPT/HCPCS: 36415; 74022; 74177; 80048; 80076; 81001; 82962; 85025; 96361; 96374; 99284; J2405; J7030; Q9967

== ENCOUNTER 2019-03-11 06:47 | Day surgery (SDC) | payer MEDICAID ==
[2019-03-11] MEDS ORDERED: NACL 0.9% 1000 ML 1,000 ML IV SCH (07:00)
--- NOTE | 2019-03-11 08:26 | Anesthesia Day of Surgery ---
Anesthesia Day of Surgery - Day of Surgery Patient Examined: Yes Patient H&P Reviewed: Yes Patient is NPO: Yes
--- NOTE | 2019-03-11 08:28 | Anesthesia Consultation ---
Anesthesia Consult and Med Hx Date of service: 03/11/19 - Airway Anesthetic Teeth Evaluation: Good ROM Head & Neck: Adequate Mental/Hyoid Distance: Adequate Mallampati Class: Class II Intubation Access Assessment: Probably Good - Pre-Operative Health Status ASA Pre-Surgery Classification: ASA3 Proposed Anesthetic Plan: MAC - Pulmonary Hx Smoking: Yes Hx Asthma: No COPD: Yes Hx Pneumonia: No Hx Sleep Apnea: Yes - Cardiovascular System Hx Hypertension: Yes Hx Coronary Artery Disease: Yes Hx Heart Attack/AMI: Yes (CHF-stable per pt) Hx Angina: Yes Hx Pacemaker: Yes Hx Internal Defibrillator: Yes - Central Nervous System Hx Back Pain: Yes - Gastrointestinal Hx Ulcer: Yes (STOMACH AND INTESTIONAL ULCERS) Hx Gastroesophageal Reflux Disease: Yes - Endocrine Hx End Stage Renal Disease: No Hx Liver Disease: Yes (Fatty liver) Hx Insulin Dependent Diabetes: Yes - Other Systems Hx Obesity: Yes
[2019-03-11] MEDS ORDERED: DIPRIVAN 10 MG/ML IV ONE ×2 (09:09)
--- NOTE | 2019-03-11 09:37 | Short Stay Summary ---
Short Stay Documentation Date of service: 03/11/19 Narrative H&P: The patient presents for surveillance colonoscopy for polyps and high risk screening study with 2 first degree family members with colon cancer, mother and brother. - History Past Medical History: CAD, COPD, diabetes, heart failure, other (morbid obesity) Past Surgical History: cholecystectomy, Other (cholecystectomy, spinal surgery, pacemaker) Social history: Lives alone, smoking, no alcohol abuse, no prescription drug abuse - Allergies and Medications Current Medications: Allergies No Known Allergies Allergy (Verified 02/11/19 17:21) Home Medications Medication Instructions Recorded Confirmed Last Taken Type ISOSORBIDE MONOnitrate [Imdur ER] 60 mg PO QDAY #30 tablet 04/06/18 03/11/19 03/10/19 Rx Nitroglycerin [Nitrostat] 0.4 mg SL .Q5MIN PRN 30 Days #30 05/01/18 03/11/19 01/11/19 Rx tablet Insulin Detemir [Levemir VIAL] 65 unit SQ BID 08/10/18 03/11/19 03/10/19 History Albuterol Sulfate [Ventolin HFA] 2 puff IH Q4H PRN 11/13/18 03/11/19 01/11/19 History Aspirin [Aspirin BABY CHEW TAB] 81 mg PO QDAY 11/13/18 03/11/19 03/10/19 History AtorvaSTATin [Lipitor] 40 mg PO DAILY 11/13/18 03/11/19 03/10/19 History Canagliflozin [Invokana] 150 mg PO DAILY 11/13/18 03/11/19 01/11/19 History Cholecalciferol (Vitamin D3) 50,000 unit PO QWEEK 11/13/18 03/11/19 03/04/19 History [Vitamin D3 50,000UNIT CAP] Fluticasone/Salmeterol [Advair 1 puff IH Q4-6H PRN 11/13/18 03/11/19 03/10/19 History Diskus 250-50 mcg] Furosemide [Lasix TAB] 20 mg PO DAILY 11/13/18 03/11/19 03/10/19 History Insulin Aspart [NovoLOG 100 30 units SQ TID 11/13/18 03/11/19 03/10/19 History UNITS/ML VIAL] Lisinopril [Zestril TAB] 10 mg PO DAILY 11/13/18 03/11/19 03/10/19 History traZODone [Desyrel] 100 mg PO DAILY 11/13/18 03/11/19 03/10/19 History Exenatide Microspheres [Bydureon] 2 mg SQ QWEEK 01/13/19 03/11/19 01/05/19 History Carvedilol [Coreg] 12.5 mg PO BID #60 tablet 01/14/19 03/11/19 03/10/19 Rx Rivaroxaban [Xarelto] 20 mg PO QDAY #30 tab 01/14/19 03/11/19 02/18/19 Rx Hyoscyamine Subl [Levsin Sl] 0.125 mg SL Q4HR PRN #16 tablet 02/12/19 03/11/19 03/10/19 Rx Lactulose [Cephulac] 20 gm PO Q6HR #240 ml 02/12/19 03/11/19 Unknown Rx Ondansetron [Zofran ODT TAB] 8 mg PO Q12HR #14 tab.rapdis 02/12/19 03/11/19 Unknown Rx Docusate Sodium [Colace] 100 mg PO BID PRN #20 capsule 02/21/19 03/11/19 Unknown Rx Ondansetron [Zofran Odt] 4 mg PO Q8HR PRN #20 tab.rapdis 02/21/19 03/11/19 03/10/19 Rx traMADol [Ultram] 50 mg PO Q6HR PRN #10 tablet 02/21/19 03/11/19 03/10/19 Rx Active Medications Sodium Chloride (Nacl 0.9% 1000 Ml) 1,000 mls @ 50 mls/hr IV DIRECT PABLO Last Admin: 03/11/19 08:43 Dose: 50 mls/hr Documented by: - Physical exam General appearance: no acute distress, well-nourished, obese Integumentary: no rash, no growths, no abnormal pigmentation HEENT: Atraumatic, PERRLA, EOMI, Mucous membr. moist/pink Lungs: Clear to auscultation Breasts: deferred Heart: Regular rate, Normal S1, Normal S2, No murmurs Gastrointestinal: normoactive bowel sounds, no tenderness, no distended, no masses, no guarding, no hepatomegaly, no splenomegaly, obese Male Genitourinary: deferred Rectal Exam: normal exam-external/orifice Extremities: no ischemia, pulses intact, pulses symmetrical, No edema, normal temperature, normal color, Full ROM Neurological: Normal gait, Normal speech, Strength at 5/5 X4 ext, Normal tone, Sensation intact, Cranial nerves 3-12 NL - Brief post op/procedure progress note Date of procedure: 03/11/19 Findings: see dictated report Estimated blood loss: none Pathology: none Condition: stable - Disposition Condition at discharge: Good Disposition: DC-01 TO HOME OR SELFCARE - Discharge Diagnoses (1) History of colon polyps Status: Acute (2) Family history of malignant neoplasm of colon in first degree relative diagnosed when younger than 60 years of age Status: Acute Short Stay Discharge Plan Activity: other (no driving for 24 hours. Restart Xarelto today.) Diet: diabetic Follow up with: REFUGIO SPAULDING MD [Primary Care Provider] - 7 Days
--- NOTE | 2019-03-11 09:40 | Operative Report ---
Operative Report Operative Report: Date of procedure: 03/11/2019 Preprocedure diagnosis: Personal history of colon polyps. Family history with first-degree relatives with colon cancer-mother and brother. Post procedure diagnosis: Mild diverticulosis of the left colon. No recurrent polyps. Procedure: Colonoscopy to the cecum Endoscopist: Dr. Swain Anesthesia: Monitored anesthesia care per anesthesia department Estimated blood loss: 0 Medications: Monitored anesthesia care. See separate report by anesthesia for details. After careful discussion of the nature and purpose of the procedure as well as details of the technique risks benefits and alternatives the patient gave consent. Please see recent history and physical from the office. The patient was placed in the left lateral decubitus position and medicated per anesthesia. A rectal exam was performed sphincter tone was normal there were no masses palpable. The [employer] 570 scope was passed transanally and advanced under continuous direct vision without difficulty to the cecum. The colon was well prepared. The cecum was normal. The ascending colon was normal and on forward and retroflexed views. The transverse colon normal. There were scattered diverticula in the descending colon and sigmoid colon. The rectum was normal on forward and retroflexed views. The procedure was well-tolerated overall and the patient was observed in recovery. Conclusions: Mild left colon diverticulosis. No recurrent polyps. Plan: Repeat colonoscopy in 3-5 years. Signed electronically: Driss Swain M.D.
[2019-03-11 10:09] VITALS: BP 124/83
== END 2019-03-11 06:48 | disposition home or self-care (01) ==
LOC: GIO 06:47
PROVIDERS: ATTEND Internal Medicine Gastroenterology
DX: Z12.11 Encounter for screening for malignant neoplasm of colon (principal); K57.30 Diverticulosis of large intestine without perforation or abscess without bleeding; J44.9 Chronic obstructive pulmonary disease, unspecified; I11.0 Hypertensive heart disease with heart failure; I50.20 Unspecified systolic (congestive) heart failure; E11.9 Type 2 diabetes mellitus without complications; I48.91 Unspecified atrial fibrillation; G47.30 Sleep apnea, unspecified; I25.110 Atherosclerotic heart disease of native coronary artery with unstable angina pectoris; E78.5 Hyperlipidemia, unspecified; F32.9 Major depressive disorder, single episode, unspecified; F41.9 Anxiety disorder, unspecified; F17.203 Nicotine dependence unspecified, with withdrawal; Z86.010 Personal history of colon polyps; Z80.0 Family history of malignant neoplasm of digestive organs; Z79.82 Long term (current) use of aspirin; Z79.4 Long term (current) use of insulin; Z86.711 Personal history of pulmonary embolism; Z79.01 Long term (current) use of anticoagulants; Z95.810 Presence of automatic (implantable) cardiac defibrillator; Z90.49 Acquired absence of other specified parts of digestive tract; Z98.890 Other specified postprocedural states; Z86.73 Personal history of transient ischemic attack (TIA), and cerebral infarction without residual deficits
CPT/HCPCS: 45378; J2704; J7030

== ENCOUNTER 2019-03-17 09:00 | Outpatient (CLI) | payer MEDICAID ==
[2019-03-17 11:10] LABS: Chol/HDL Ratio 5.06 %
== END 2019-03-17 09:01 | disposition home or self-care (01) ==
LOC: LAB 09:00
PROVIDERS: ATTEND Internal Medicine
DX: E11.9 Type 2 diabetes mellitus without complications (principal); E78.5 Hyperlipidemia, unspecified; I10 Essential (primary) hypertension; J44.9 Chronic obstructive pulmonary disease, unspecified
CPT/HCPCS: 36415; 80061; 83036

== ENCOUNTER 2019-03-21 18:12 | Emergency (ER) | payer MEDICAID ==
--- NOTE | 2019-03-21 18:21 | Event Note ---
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 Further treatment and workup at subsequent clinical providers discretion. Patient/guardian urged not to elope from the ED as their condition may be serious if not clinically assessed and managed. Initial orders include: 12 lead labs chest xray
[2019-03-21 19:03] LABS: Hematocrit 46.4 % (35.5-45.6); Hemoglobin 16.2 gm/dl (11.8-15.2); Mean Corpuscular HGB Conc 35 % (32-34); Mean Corpuscular Volume 87 fl (84-94); Platelet Count 218 K/mm3 (140-440); Red Cell Distribution Width 13.9 % (13.2-15.2)
[2019-03-21 19:16] LABS: Alanine Aminotransferase 40 units/L (7-56); Albumin 3.6 g/dL (3.9-5); BUN/Creatinine Ratio 6; Blood Urea Nitrogen 4 mg/dL (9-20); Calcium 9.1 mg/dL (8.4-10.2); Hemolysis Index 8
--- NOTE | 2019-03-21 19:44 | XRay Report ---
PROCEDURE: XR CHEST ROUTINE 2V TECHNIQUE: PA and lateral chest radiographs were obtained. HISTORY: SOB FINDINGS: Frontal and lateral views the chest were acquired and compared to the prior examination of January 12. The heart is normal in size. There is a pacing device with leads in the right atrium and ventricle. T here is no evidence of congestive heart failure. There is no consolidative infiltrate. IMPRESSION: No active disease in the chest This document is electronically signed by Evin Riojas MD., March 21 2019 07:42:34 PM ET
--- NOTE | 2019-03-21 20:07 | Emergency Department Report ---
ED General Adult HPI - General Chief complaint: High BP Stated complaint: HBP Time Seen by Provider: 03/21/19 18:20 Source: patient Mode of arrival: Ambulatory Limitations: No Limitations - History of Present Illness Initial comments: Mr. Duque is a very pleasant 53-year-old male with a history of ischemic cardiomyopathy, coronary artery disease, hypertension, COPD, tobacco abuse, pulmonary embolism, dyslipidemia, atrial fibrillation, TIA, sleep apnea who presents with fluctuating blood pressure readings. In the morning his blood pressure has been low 80/40. This evening his blood pressure was high 160 systolic. He spoke with Dr. Winters who recommended discontinuing lisinopril. He has been unable to obtain carvedilol until today. He will resume this medication. He denies chest pain. Denies syncope. He has mild dizziness in the mornings. He is concerned for possible leukemia. His white blood cell count has been elevated. 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 -: Gradual Severity scale (0 -10): 8 Consistency: constant Improves with: medication Worsens with: none Associated Symptoms: denies other symptoms - Related Data Home Medications Medication Instructions Recorded Confirmed Last Taken Insulin Detemir [Levemir VIAL] 65 unit SQ BID 08/10/18 03/11/19 03/10/19 Albuterol Sulfate [Ventolin HFA] 2 puff IH Q4H PRN 11/13/18 03/11/19 01/11/19 Aspirin [Aspirin BABY CHEW TAB] 81 mg PO QDAY 11/13/18 03/11/19 03/10/19 AtorvaSTATin [Lipitor] 40 mg PO DAILY 11/13/18 03/11/19 03/10/19 Canagliflozin [Invokana] 150 mg PO DAILY 11/13/18 03/11/19 01/11/19 Cholecalciferol (Vitamin D3) 50,000 unit PO QWEEK 11/13/18 03/11/19 03/04/19 [Vitamin D3 50,000UNIT CAP] Fluticasone/Salmeterol [Advair 1 puff IH Q4-6H PRN 11/13/18 03/11/19 03/10/19 Diskus 250-50 mcg] Furosemide [Lasix TAB] 20 mg PO DAILY 11/13/18 03/11/19 03/10/19 Insulin Aspart [NovoLOG 100 30 units SQ TID 11/13/18 03/11/19 03/10/19 UNITS/ML VIAL] Lisinopril [Zestril TAB] 10 mg PO DAILY 11/13/18 03/11/19 03/10/19 traZODone [Desyrel] 100 mg PO DAILY 11/13/18 03/11/19 03/10/19 Exenatide Microspheres [Bydureon] 2 mg SQ QWEEK 01/13/19 03/11/19 01/05/19 Previous Rx's Medication Instructions Recorded Last Taken Type ISOSORBIDE MONOnitrate [Imdur ER] 60 mg PO QDAY #30 tablet 04/06/18 03/10/19 Rx Nitroglycerin [Nitrostat] 0.4 mg SL .Q5MIN PRN 30 Days #30 05/01/18 01/11/19 Rx tablet Carvedilol [Coreg] 12.5 mg PO BID #60 tablet 01/14/19 03/10/19 Rx Rivaroxaban [Xarelto] 20 mg PO QDAY #30 tab 01/14/19 02/18/19 Rx Hyoscyamine Subl [Levsin Sl 0.125 0.125 mg SL Q4HR PRN #16 tablet 02/12/19 03/10/19 Rx TAB] Lactulose [Cephulac] 20 gm PO Q6HR #240 ml 02/12/19 Unknown Rx Ondansetron [Zofran ODT TAB] 8 mg PO Q12HR #14 tab.rapdis 02/12/19 Unknown Rx Docusate Sodium [Colace CAP] 100 mg PO BID PRN #20 capsule 02/21/19 Unknown Rx Ondansetron [Zofran ODT TAB] 4 mg PO Q8HR PRN #20 tab.rapdis 02/21/19 03/10/19 Rx traMADol [Ultram 50 MG tab] 50 mg PO Q6HR PRN #10 tablet 02/21/19 03/10/19 Rx Allergies Allergy/AdvReac Type Severity Reaction Status Date / Time No Known Allergies Allergy Verified 03/21/19 18:15 ED Review of Systems ROS: Stated complaint: HBP Other details as noted in HPI Comment: All other systems reviewed and negative Constitutional: denies: fever, malaise Respiratory: denies: cough Cardiovascular: denies: chest pain ED Past Medical Hx - Past Medical History Previous Medical History?: Yes Hx Hypertension: Yes Hx CVA: Yes (TIA) Hx Heart Attack/AMI: Yes (CHF-stable per pt) Hx Congestive Heart Failure: Yes Hx Diabetes: Yes Hx Pulmonary Embolism: Yes (x14) Hx Liver Disease: Yes (Fatty liver) Hx Asthma: No Hx COPD: Yes Additional medical history: sleep apnea. afib. enlarge heart. left bundle branch block - Surgical History Past Surgical History?: Yes Hx Pacemaker: Yes Hx Internal Defibrillator: Yes Hx Cholecystectomy: Yes Additional Surgical History: cardiac pacemaker/defibrilator. carpal tunel. vasectomy. bilateral contruction of spine - Social History Smoking Status: Current Every Day Smoker Substance Use Type: None - Medications Home Medications: Home Medications Medication Instructions Recorded Confirmed Last Taken Type ISOSORBIDE MONOnitrate [Imdur ER] 60 mg PO QDAY #30 tablet 04/06/18 03/11/19 03/10/19 Rx Nitroglycerin [Nitrostat] 0.4 mg SL .Q5MIN PRN 30 Days #30 05/01/18 03/11/19 01/11/19 Rx tablet Insulin Detemir [Levemir VIAL] 65 unit SQ BID 08/10/18 03/11/19 03/10/19 History Albuterol Sulfate [Ventolin HFA] 2 puff IH Q4H PRN 11/13/18 03/11/19 01/11/19 History Aspirin [Aspirin BABY CHEW TAB] 81 mg PO QDAY 11/13/18 03/11/19 03/10/19 History AtorvaSTATin [Lipitor] 40 mg PO DAILY 11/13/18 03/11/19 03/10/19 History Canagliflozin [Invokana] 150 mg PO DAILY 11/13/18 03/11/19 01/11/19 History Cholecalciferol (Vitamin D3) 50,000 unit PO QWEEK 11/13/18 03/11/19 03/04/19 History [Vitamin D3 50,000UNIT CAP] Fluticasone/Salmeterol [Advair 1 puff IH Q4-6H PRN 11/13/18 03/11/19 03/10/19 History Diskus 250-50 mcg] Furosemide [Lasix TAB] 20 mg PO DAILY 11/13/18 03/11/19 03/10/19 History Insulin Aspart [NovoLOG 100 30 units SQ TID 11/13/18 03/11/19 03/10/19 History UNITS/ML VIAL] Lisinopril [Zestril TAB] 10 mg PO DAILY 11/13/18 03/11/19 03/10/19 History traZODone [Desyrel] 100 mg PO DAILY 11/13/18 03/11/19 03/10/19 History Exenatide Microspheres [Bydureon] 2 mg SQ QWEEK 01/13/19 03/11/19 01/05/19 History Carvedilol [Coreg] 12.5 mg PO BID #60 tablet 01/14/19 03/11/19 03/10/19 Rx Rivaroxaban [Xarelto] 20 mg PO QDAY #30 tab 01/14/19 03/11/19 02/18/19 Rx Hyoscyamine Subl [Levsin Sl 0.125 0.125 mg SL Q4HR PRN #16 tablet 02/12/19 03/11/19 03/10/19 Rx TAB] Lactulose [Cephulac] 20 gm PO Q6HR #240 ml 02/12/19 03/11/19 Unknown Rx Ondansetron [Zofran ODT TAB] 8 mg PO Q12HR #14 tab.rapdis 02/12/19 03/11/19 Unknown Rx Docusate Sodium [Colace CAP] 100 mg PO BID PRN #20 capsule 02/21/19 03/11/19 Unknown Rx Ondansetron [Zofran ODT TAB] 4 mg PO Q8HR PRN #20 tab.rapdis 02/21/19 03/11/19 03/10/19 Rx traMADol [Ultram 50 MG tab] 50 mg PO Q6HR PRN #10 tablet 02/21/19 03/11/19 03/10/19 Rx ED Physical Exam - General Limitations: No Limitations General appearance: alert, in no apparent distress - Head Head exam: Present: atraumatic, normocephalic - Eye Eye exam: Present: normal appearance - ENT ENT exam: Present: mucous membranes moist - Neck Neck exam: Present: normal inspection, full ROM - Respiratory Respiratory exam: Present: normal lung sounds bilaterally. Absent: respiratory distress, wheezes, rales, stridor - Cardiovascular Cardiovascular Exam: Present: regular rate, normal rhythm, normal heart sounds. Absent: bradycardia, tachycardia, systolic murmur, diastolic murmur, rubs, gallop - GI/Abdominal GI/Abdominal exam: Present: soft, normal bowel sounds. Absent: distended, tenderness, guarding, rebound - Rectal Rectal exam: Present: deferred - Extremities Exam Extremities exam: Present: normal inspection - Back Exam Back exam: Present: other (small lipoma left central back) - Neurological Exam Neurological exam: Present: alert, oriented X3 - Psychiatric Psychiatric exam: Present: normal affect, normal mood - Skin Skin exam: Present: warm, dry, intact, normal color. Absent: rash ED Course Vital Signs 03/21/19 03/21/19 18:22 19:15 Temperature 98.4 F 97.9 F Pulse Rate 95 H 77 Respiratory 16 14 Rate Blood Pressure 176/86 Blood Pressure 143/84 [Left] O2 Sat by Pulse 99 98 Oximetry ED Medical Decision Making - Lab Data Result diagrams: 03/21/19 18:42 03/21/19 18:42 Laboratory Results - last 24 hr 03/21/19 03/21/19 18:42 18:42 WBC 8.8 RBC 5.30 H Hgb 16.2 H Hct 46.4 H MCV 87 MCH 31 MCHC 35 H RDW 13.9 Plt Count 218 Sodium 134 L Potassium 3.7 Chloride 98.4 Carbon Dioxide 22 Anion Gap 17 BUN 4 L Creatinine 0.7 L Estimated GFR > 60 BUN/Creatinine Ratio 6 Glucose 377 H Calcium 9.1 Total Bilirubin 0.30 AST 21 ALT 40 Alkaline Phosphatase 78 Troponin T < 0.010 NT-Pro-B Natriuret Pep 248.5 Total Protein 6.5 Albumin 3.6 L Albumin/Globulin Ratio 1.2 - EKG Data 03/21/19 20:12 EKG obtained 1825 Normal sinus rhythm rate 90 beats a minuteNormal axis prolonged QT interval left bundle-branch block nonspecific ST-T wave pattern - Radiology Data Radiology results: report reviewed AP portable chest radiograph one view no acute process according to radiology report - Medical Decision Making Mr. Duque presents with fluctuating blood pressure readings hypotension in the morning, hypertension in the evening. 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 Winters. Dr. Winters recommended half-doses of carvedilol in the morning and in the evening. I have given this information to the patient. I reviewed lab EKG and chest x-ray. Unremarkable studies with the exception of mild hyperglycemia. Mr. Duque has follow with his personal stitching machine setter on Sunday. Discharged home in stable condition. Critical care attestation.: If time is entered above; I have spent that time in minutes in the direct care of this critically ill patient, excluding procedure time. ED Disposition Clinical Impression: HTN (hypertension), Systolic CHF, Ischemic cardiomyopathy Disposition: TO HOME OR SELFCARE Is pt being admited?: No Does the pt Need Aspirin: No Condition: Stable Instructions: Heart Failure (ED) Additional Instructions: Please take half doses of Coreg, carvedilol. Please discontinue lisinopril until you see your stitching machine setter on Sunday Referrals: DEMI WINTERS MD [Staff Physician] - 2-3 Days
[2019-03-21 20:24] VITALS: BP 136/90
== END 2019-03-21 20:55 | disposition home or self-care (01) ==
LOC: ED 18:12
DX: I11.0 Hypertensive heart disease with heart failure (principal); I50.20 Unspecified systolic (congestive) heart failure; I25.5 Ischemic cardiomyopathy; Z86.73 Personal history of transient ischemic attack (TIA), and cerebral infarction without residual deficits; I25.2 Old myocardial infarction; E11.9 Type 2 diabetes mellitus without complications; J44.9 Chronic obstructive pulmonary disease, unspecified; Z95.0 Presence of cardiac pacemaker; Z90.49 Acquired absence of other specified parts of digestive tract; F17.200 Nicotine dependence, unspecified, uncomplicated; Z79.4 Long term (current) use of insulin; Z79.899 Other long term (current) drug therapy; Z79.82 Long term (current) use of aspirin
CPT/HCPCS: 36415; 71046; 80053; 83880; 84484; 85027; 93005; 93010; 99284